=== PATIENT | male | born 1950 | race Caucasian/White ===

== ENCOUNTER → 2018-07-11 | Outpatient (CLI) | payer MEDICARE ==
[~2018-07-11] MED LIST: CLONAZEPAM0.5 MG PO; COLACE100 MG PO; CRESTOR10 MG PO; CRESTOR5 MG PO; FUROSEMIDE INJ 10 MG/ML 4 ML VIAL ONE; JUICE PLUS PO; LEVAQUIN500 MG PO; RED YEAST RICE PO; RED YEAST RICE600 MG PO; TRAMADOL-ACETAMI1 EA PO; TYLENOL WITH C1 EACH PO
--- NOTE | 2018-07-11 16:28 | Diagnostic Imaging Report ---
Renal Scan with Lasix Washout Clinical information: Hydronephrosis with ureteral stricture. 68 M with persistent left flank pain. No recent stents; no recent UTIs. Comparison: Most recent prior renal scan with Lasix 12/28/2016 Technique: Following intravenous administration of 11 mCi of Tc-99m MAG3, dynamic images of the kidneys in the posterior projection were obtained through 40 minutes. Lasix 40 mg was administered intravenously at 10 minutes post injection of the tracer. Report: Left kidney: Perfusion of the left kidney is prompt. The kidney has a distorted slightly elongated reniform shape with thinning of the renal cortex, most marked in the lower pole. Extraction of tracer from the blood pool by the remaining renal parenchyma is normal. Clearance of tracer from the renal parenchyma is prompt. Dilated calices are seen throughout the kidney although the renal pelvis is only slightly prominent. Increased pooling of tracer within the dilated calices is seen. No net drainage of tracer from the pelvicalyceal system is seen prior to administration of Lasix. Washout of tracer from the pelvicalyceal system following administration of Lasix is very slow with a T-1/2 of 30-40 minutes (normal less than 15 minutes). No significant stasis of tracer is seen within the left ureter. Right kidney: Perfusion to the right kidney is prompt. The right kidney has a normal reniform shape. Extraction of tracer by the renal parenchyma is normal. Clearance of tracer from the renal parenchyma is prompt. The pelvicalyceal system is not dilated. Physiologic pooling of tracer within the pelvicalyceal system is seen. Drainage of tracer from the pelvicalyceal system is prompt and adequate prior to administration of Lasix. No significant stasis of tracer is seen within the right ureter. Differential renal function: The left kidney contributes 40% of total renal function and the right kidney contributes 60% (normal 43-57%). Impression: 1. 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 Hydronephrosis is present. The washout pattern for the left kidney is prolonged but also stable compared to the prior study of 12/28/2016. 2. The function of the right kidney is generally normal. No hydronephrosis is present. No physiologically significant obstruction of the renal collecting system is present. The kidney and its drainage pattern are unchanged compared to the prior study. Signed by: Dr. Yanet Pérez M.D. on 07/11/2018 4:25 PM
== END ==
LOC: NM 08:27
PROVIDERS: ATTEND Urology
DX: N13.1 Hydronephrosis with ureteral stricture, not elsewhere classified (principal)
CPT/HCPCS: 78708; A9562; J1940

== ENCOUNTER 2018-09-06 21:51 | Inpatient (IN) | payer MEDICARE ==
[~2018-09-06] VITALS: Ht 170.2 cm; Wt 82.6 kg
[~2018-09-06 21:51] MED LIST changes: -FUROSEMIDE INJ 10 MG/ML 4 ML VIAL ONE
--- OUTSIDE RECORDS SUMMARY | 2018-09-06 21:56 | XMS REPORT | Continuity of Care Document ---
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 Name Role Phone [employer] Unavailable Unavailable Problems Problem Status Onset Date Classification Date Reported Comments Source N13.1 Active 05/30/2017 [facility] Diverticulitis of large intestine without perforation or abscess without bleeding 05/22/2017 08/22/2017 [facility] LOWER ABD PAIN Active 2017 [facility] 587 Active 09/10/2014 [facility] 333.1 - TREMOR NEC V70.0 - ROUTINE MEDIC Active 04/03/2014 [facility] Outpatient Imaging [facility] ENLARGED KIDNEY Active 04/03/2014 [facility] Pure hypercholesterolemia, unspecified 08/22/2017 [facility] Anxiety disorder, unspecified 08/22/2017 [facility] Essential hypertension 08/22/2017 [facility] Tremor, unspecified 08/22/2017 [facility] Personal history of nicotine dependence 08/22/2017 [facility] KIDNEY ANOMALY NEC Active [facility] RENAL SCLEROSIS NOS Active [facility] DVTRCLI OF INTEST, PART UNSP, W/O PERF O Active [facility] HYDRONEPHROSIS W URETERAL STRICTURE, NEC Active [facility] Medications Medication Details Route Status Patient Instructions Ordering Provider Order Date Source Metronidazole 500 MG Oral Tablet [Flagyl] 500 mg=1 tab, PO, Q8H, X 7 day, # 21 tab, 0 Refill(s), Pharmacy: [facility] [id number] No Longer Active 05/17/2017 [facility] Ciprofloxacin 500 MG Oral Tablet [Cipro] 500 mg=1 tab, PO, Q12H, X 7 day, # 14 tab, 0 Refill(s), Pharmacy: [facility] [id number] No Longer Active 05/17/2017 [facility] Metronidazole 500 MG Oral Tablet [Flagyl] 500 mg=1 tab, PO, Q8H, X 7 day, # 21 tab, 0 Refill(s), other Inactive 05/16/2017 [facility] Acetaminophen 300 MG / Codeine Phosphate 30 MG Oral Tablet [Tylenol with Codeine #3] 1 tab, PO, Q6H, PRN Pain, X 7 day, # 28 tab, 0 Refill(s) No Longer Active 05/16/2017 [facility] Ciprofloxacin 500 MG Oral Tablet [Cipro] 500 mg=1 tab, PO, Q12H, X 7 day, # 14 tab, 0 Refill(s), other Inactive 05/16/2017 [facility] Sodium Chloride 0.9% IV 1,000 mL 1,000 mL, Rate: 50 ml/hr, Infuse over: 20 hr, Route: IV, Dosing Weight 76.392 kg, Total Volume: 1,000, Start date: 05/15/17 11:54:00 CDT, Stop date: 06/14/17 11:53:00 CDT, 1.9, m2 No Longer Active 05/15/2017 [facility] 200 ML Ciprofloxacin 2 MG/ML Injection 400 mg, 200 mL, Route: IVPB, Drug form: INJ, [id number], Dosing Weight 77.545, kg, Start date: 05/15/17 1:00:00 CDT, Duration: 14 day, Stop date: 05/28/17 13:00:00 CDT, ABX Indication: Intra-abdominal InfectionNotes: Do not refrigerate Inactive 05/15/2017 [facility] Flagyl 500 mg, 100 mL, Route: IVPB, Drug form: INJ, Q8H, Dosing Weight 77.545, kg, Start date: 05/14/17 22:00:00 CDT, Duration: 30 day, Stop date: 06/13/17 14:00:00 CDT, ABX Indication: Intra-abdominal Infe ctionNotes: (Same as: Flagyl) Avoid alcohol. No Longer Active 05/15/2017 [facility] Zosyn 3.375 gm, Route: IVPB, Drug form: PDR/INJ, [id number], Dosing Weight 76.392, kg, CrCl >=20 ml/min infuse over 4 hours, Start date: 05/14/17 22:00:00 CDT, Duration: 14 day, Stop date: 05/28/17 14:00:00 CDT, diverticulitis, ABX Indication: Other (specify i... Inactive 05/15/2017 [facility] Crestor 5 mg, 0.5 tab, Route: PO, Drug form: TAB, Bedtime, Dosing Weight 76.392, kg, Start date: 05/14/17 21:00:00 CDT, Duration: 30 day, Stop date: 06/12/17 21:00:00 CDTNotes: (Same As: Crestor) No Longer Active 05/15/2017 [facility] Clonazepam 0.5 mg, 1 tab, Route: PO, Drug form: TAB, BID, Dosing Weight 76.392, kg, Start date: 05/14/17 21:00:00 CDT, Duration: 30 day, Stop date: 06/13/17 9:00:00 CDTNotes: (Same As: KlonoPIN) No Longer Active 05/15/2017 [facility] Atenolol 12.5 mg, 0.5 tab, Route: PO, Drug form: TAB, Daily, Dosing Weight 76.392, kg, Start date: 05/14/17 21:00:00 CDT, Duration: 30 day, Stop date: 06/13/17 9:00:00 CDTNotes: (Same As:Tenormin) No Longer Active 05/15/2017 [facility] Streptococcus pneumoniae serotype 1 capsular antigen diphtheria [id number] protein conjugate vaccine / Streptococcus pneumoniae serotype 14 capsular antigen diphtheria [id number] protein conjugate vaccine / Streptococcus pneumoniae serotype 18C capsular antigen d 0.5 mL, Route: IM, Drug Form: INJ, ONCALL, Start date: 05/14/17 19:00:00 CDT, Duration: 30 day, Stop date: 06/13/17 18:59:00 CDTNotes: Shake well prior to use (Same as: Prevnar 13) No Longer Active 05/15/2017 [facility] Atenolol 12.5 mg, PO, Daily, 0 Refill(s) Active 2017 [facility] Rosuvastatin calcium 5 MG Oral Tablet [Crestor] 5 mg=1 tab, PO, Bedtime, # 30 tab, 0 Refill(s) Active 2017 [facility] clonazePAM 0.5 mg oral tablet 0.5 mg=1 tab, PO, BID, # 30 tab, 0 Refill(s) Active 2017 [facility] Probiotic Formula oral capsule 1 cap, PO, Daily, 0 Refill(s) Active 2017 [facility] Albuterol 0.833 MG/ML / Ipratropium [place] 0.167 MG/ML Inhalant Solution [DuoNeb] 3 ml, Route: NEB, Drug Form: SOLN, Dosing Weight 77.545, kg, PRN, PRN Respiratory Protocol, Start date: 05/14/17 15:30:00 CDT, Duration: 30 day, Stop date: 06/13/17 15:29:00 CDTNotes: (Same as: Duoneb) No Longer Active 2017 [facility] Hydralazine 10 mg, 0.5 mL, Route: IVP, Drug form: INJ, Q6H, Dosing Weight 77.545, kg, PRN Hypertension, SBP>160, Start date: 05/14/17 15:30:00 CDT, Duration: 30 day, Stop date: 06/13/17 15:29:00 CDTNotes: (Same as: Apresoline) Push over 5 minutes No Longer Active 2017 [facility] Trazodone Hydrochloride 50 MG Oral Tablet 50 mg, 1 tab, Route: PO, Drug form: TAB, Bedtime, Dosing Weight 77.545, kg, PRN Insomnia, Start date: 05/14/17 15:30:00 CDT, Duration: 30 day, Stop date: 06/13/17 15:29:00 CDTNotes: (Same As: Desyrel) No Longer Active 2017 [facility] Acetaminophen 650 mg, 2 tab, Route: PO, Drug form: TAB, Q4H, Dosing Weight 77.545, kg, PRN For Temp > 100.4 F, Start date: 05/14/17 15:30:00 CDT, Duration: 30 day, Stop date: 06/13/17 15:29:00 CDTNotes: Do not exceed 4 gm/day. (Same as: Tylenol) No Longer Active 2017 [facility] Diphenhydramine 25 mg, 1 tab, Route: PO, Drug form: TAB, Q6H, Dosing Weight 77.545, kg, PRN Itching, Start date: 05/14/17 15:30:00 CDT, Duration: 30 day, Stop date: 06/13/17 15:29:00 CDT No Longer Active 2017 [facility] Tessalon Perles 100 mg, 1 cap, Route: PO, Drug form: CAP, Q8H, Dosing Weight 77.545, kg, PRN Cough, Start date: 05/14/17 15:30:00 CDT, Duration: 30 day, Stop date: 06/13/17 15:29:00 CDTNotes: (Same As: Tessalon Ama es) "Do Not Crush" No Longer Active 2017 [facility] Ondansetron 4 mg, 2 mL, Route: IVP, Drug form: INJ, Q8H, Dosing Weight 77.545, kg, PRN Nausea & Vomiting, Start date: 05/14/17 15:30:00 CDT, Duration: 30 day, Stop date: 06/13/17 15:29:00 CDTNotes: (Same as: Michael) MEDICATION WASTE Product Size: 4 mg Product Wasted: ___ mg No Longer Active 2017 [facility] Simethicone 80 mg, 1 tab, Route: PO, Drug form: [place], Q6H, Dosing Weight 77.545, kg, PRN Gas, Start date: 05/14/17 15:30:00 CDT, Duration: 2 doses or times, Stop date: Limited # of timesNotes: (Same as: Cata on) No Longer Active 2017 [facility] Aluminum Hydroxide 40 MG/ML / Magnesium Hydroxide 40 MG/ML / Simethicone 4 MG/ML Oral Suspension 30 mL, Route: PO, Drug Form: SUSP, Dosing Weight 77.545, kg, Q4H, PRN Indigestion, Start date: 05/14/17 15:30:00 CDT, Duration: 30 day, Stop date: 06/13/17 15:29:00 CDTNotes: (aluminum hydroxide-magnesium hyd- simethicone [id number]/5ml RICK) (Same as: Maalox Plus Extra Strength) No Longer Active 2017 [facility] Milk of Magnesia 30 mL, Route: PO, Drug Form: SUSP, Dosing Weight 77.545, kg, Q3H, PRN Constipation, Start date: 05/14/17 15:30:00 CDT, Duration: 2 doses or times, Stop date: Limited # of timesNotes: (Same as: Milk o f Magnesia, MOM) No Longer Active 2017 [facility] Bisacodyl 10 mg, 1 supp, Route: AK, Drug form: SUPP, Daily, Dosing Weight 77.545, kg, PRN Constipation, Start date: 05/14/17 15:30:00 CDT, Duration: 30 day, Stop date: 06/13/17 15:29:00 CDTNotes: (Same As: Dulcolax, Bisco-Lax) No Longer Active 2017 [facility] Saline Flush 0.9% 10 ml, Route: IVP, Drug Form: INJ, Dosing Weight 77.545, kg, PRN, PRN Line Flush, Start date: 05/14/17 15:30:00 CDT, Duration: 30 day, Stop date: 06/13/17 15:29:00 CDTNotes: (Same as: BD Posiflush) No Longer Active 2017 [facility] Sodium Chloride 0.9% IV 1,000 mL 1,000 mL, Rate: 100 ml/hr, Infuse over: 10 hr, Route: IV, Dosing Weight 77.545 kg, Total Volume: 1,000, Start date: 05/14/17 15:30:00 CDT, Duration: 30 day, Stop date: 06/13/17 15:29:00 CDT, 1.92, m2 No Longer Active 2017 [facility] Morphine 6 mg, 3 mL, Route: PO, Drug form: SOLN, Q4H, Dosing Weight 77.545, kg, PRN Pain Score 7-10, Start date: 05/14/17 15:27:00 CDT, Duration: 30 day, Stop date: 06/13/17 15:26:00 CDTNotes: (Same as:MORPhine Sulfate) No Longer Active 2017 [facility] Acetaminophen 325 MG / Hydrocodone Bitartrate 5 MG Oral Tablet [[place] 5/325] 1 tab, Route: PO, Drug Form: TAB, Dosing Weight 77.545, kg, Q6H, PRN Pain Score 1-3, Start date: 05/14/17 15:27:00 CDT, Duration: 30 day, Stop date: 06/13/17 15:26:00 CDTNotes: (Same as: [place] 325/5) Do not exceed 4gm/day of acetaminophen. No Longer Active 2017 [facility] Fentanyl 75 microgram, 1.5 mL, Route: IVP, Drug form: INJ, ONCE, Dosing Weight 77.545, kg, Priority: STAT, Start date: 05/14/17 13:43:00 CDT, Stop date: 05/14/17 13:43:00 CDTNotes: (Same as: Sublimaze) Preservative free. Inactive 2017 [facility] Metronidazole 500 mg, 100 mL, Route: IVPB, Drug form: INJ, ONCE, Dosing Weight 77.545, kg, Priority: STAT, Start date: 05/14/17 13:24:00 CDT, Stop date: 05/14/17 13:24:00 CDT, ABX Indication: Other (specify in Com ments)Notes: (Same as: Flagyl) Avoid alcohol. Inactive 2017 [facility] Cipro 400 mg, 200 mL, Route: IVPB, Drug form: INJ, ONCE, Dosing Weight 77.545, kg, Priority: STAT, Start date: 05/14/17 13:24:00 CDT, Stop date: 05/14/17 13:24:00 CDT, ABX Indication: Other (specify in Com ments)Notes: Do not refrigerate Inactive 2017 [facility] Omnipaque 300 injectable solution 100 mL, Route: IVP, Drug Form: SOLN, Dosing Weight 77.545, kg, ONCE, GFR > 45 mL/min, STAT, Start date: 05/14/17 11:49:00 CDT, Stop date: 05/14/17 11:49:00 CDTNotes: (Same as:Omnipaque 300). WASTE: F/P - Black; E - [employer]ash [employer] Inactive 2017 [facility] NS (Bolus) IV 1,000 mL, 1000 ml/hr, Infuse Over: 1 hr, Route: IV, 1,000, Drug form: INJ, ONCE, Priority: STAT, Dosing Weight 77.545 kg, Start date: 05/14/17 10:17:00 CDT, Stop date: 05/14/17 10:17:00 CDT Inactive 2017 [facility] Allergies, Adverse Reactions, Alerts Substance Category Reaction Severity Reaction type Status Date Reported Comments Source penicillin<sup>1</sup> Assertion Drug allergy Active Pt tolerated zosyn on admission 05/15/17 [facility] Immunizations No Data Provided for This Section Results Order Name Results Value Reference Range Date Interpretation Comments Source CHEM PANEL A/G Ratio 0.6 0.7 - 1.6 05/15/2017 [facility] CHEM PANEL Globulin 4.2 2.7 - 4.2 05/15/2017 [facility] CHEM PANEL AGAP 12.0 10.0 - 20.0 05/15/2017 [facility] CHEM PANEL B/C Ratio 9 6 - 25 05/15/2017 [facility] CHEM PANEL Total Protein 6.7 6.4 - 8.4 05/15/2017 [facility] CHEM PANEL Calcium Lvl 8.8 8.5 - 10.5 05/15/2017 [facility] CHEM PANEL Alk Phos 123 39 - 136 05/15/2017 [facility] CHEM PANEL Bili Total 0.8 0.2 - 1.3 05/15/2017 [facility] CHEM PANEL eGFR 76 05/15/2017 Result Comment: The eGFR is calculated using the CKD-EPI formula. In most young, healthy individuals the eGFR will be >90 mL/min/1.73m2. The eGFR declines with age. An eGFR of 60-89 may be normal in some populations, particularly the elderly, for whom the CKD-EPI formula has not been extensively validated. Use of the eGFR is not recommended in the following populations:

Individuals with unstable creatinine concentrations, including patients and those with serious co-morbid conditions.

Patients with extremes in muscle mass or diet.

The data above are obtained from the National Kidney Disease Education Program (NKDEP) which additionally recommends that when the eGFR is used in patients with extremes of body mass index for purposes of drug dosing, the eGFR should be multiplied by the estimated BMI. [facility] CHEM PANEL CO2 24 24 - 32 05/15/2017 [facility] CHEM PANEL Chloride Lvl 107 95 - 109 05/15/2017 [facility] CHEM PANEL ALT 25 0 - 65 05/15/2017 [facility] CHEM PANEL AST 12 0 - 37 05/15/2017 [facility] CHEM PANEL Albumin Lvl 2.5 3.5 - 5.0 05/15/2017 [facility] CHEM PANEL Potassium Lvl 4.0 3.5 - 5.1 05/15/2017 [facility] CHEM PANEL Sodium Lvl 139 135 - 145 05/15/2017 [facility] CHEM PANEL Creatinine Lvl 1.00 0.50 - 1.40 05/15/2017 [facility] CHEM PANEL BUN 9 7 - 22 05/15/2017 [facility] CHEM PANEL Glucose Lvl 98 70 - 99 05/15/2017 [facility] HEMATOLOGY Basophils # 0.1 0.0 - 0.2 05/15/2017 [facility] HEMATOLOGY Monocytes 9.6 2.0 - 12.0 05/15/2017 [facility] HEMATOLOGY Lymphocytes 15.7 20.0 - 40.0 05/15/2017 [facility] HEMATOLOGY Segs 72.8 45.0 - 75.0 05/15/2017 [facility] HEMATOLOGY Basophils 0.5 0.0 - 1.0 05/15/2017 [facility] HEMATOLOGY Eosinophils 1.4 0.0 - 4.0 05/15/2017 [facility] HEMATOLOGY Segs-Bands # 10.5 1.5 - 8.1 05/15/2017 [facility] HEMATOLOGY Lymphocytes # 2.3 1.0 - 5.5 05/15/2017 [facility] HEMATOLOGY Eosinophils # 0.2 0.0 - 0.5 05/15/2017 [facility] HEMATOLOGY Monocytes # 1.4 0.0 - 0.8 05/15/2017 [facility] HEMATOLOGY RDW 13.2 11.5 - 14.5 05/15/2017 [facility] HEMATOLOGY Platelet 378 133 - 450 05/15/2017 [facility] MPV 7.3 7.4 - 10.4 05/15/2017 [facility] HEMATOLOGY MCV 87.3 80.0 - 94.0 05/15/2017 [facility] MCH 29.4 27.0 - 31.0 05/15/2017 [facility] MCHC 33.7 32.0 - 36.0 05/15/2017 [facility] HEMATOLOGY RBC 4.65 4.70 - 6.10 05/15/2017 [facility] HEMATOLOGY WBC 14.4 3.7 - 10.4 05/15/2017 [facility] HEMATOLOGY Hct 40.5 42.0 - 54.0 05/15/2017 [facility] HEMATOLOGY Hgb 13.6 14.0 - 18.0 05/15/2017 [facility] CHEM PANEL eGFR 75 2017 Result Comment: The eGFR is calculated using the CKD-EPI formula. In most young, healthy individuals the eGFR will be >90 mL/min/1.73m2. The eGFR declines with age. An eGFR of 60-89 may be normal in some populations, particularly the elderly, for whom the CKD-EPI formula has not been extensively validated. Use of the eGFR is not recommended in the following populations:

Individuals with unstable creatinine concentrations, including patients and those with serious co-morbid conditions.

Patients with extremes in muscle mass or diet.

The data above are obtained from the National Kidney Disease Education Program (NKDEP) which additionally recommends that when the eGFR is used in patients with extremes of body mass index for purposes of drug dosing, the eGFR should be multiplied by the estimated BMI. [facility] CHEM PANEL Bili Total 0.7 0.2 - 1.3 2017 [facility] CHEM PANEL ALT 37 0 - 65 2017 [facility] CHEM PANEL Alk Phos 158 39 - 136 2017 [facility] CHEM PANEL AST 19 0 - 37 2017 [facility] CHEM PANEL Albumin Lvl 3.1 3.5 - 5.0 2017 [facility] CHEM PANEL Chloride Lvl 101 95 - 109 2017 [facility] CHEM PANEL Potassium Lvl 4.4 3.5 - 5.1 2017 [facility] CHEM PANEL Total Protein 8.0 6.4 - 8.4 2017 [facility] CHEM PANEL Calcium Lvl 9.2 8.5 - 10.5 2017 [facility] CHEM PANEL CO2 27 24 - 32 2017 [facility] CHEM PANEL BUN 13 7 - 22 2017 [facility] CHEM PANEL Creatinine Lvl 1.02 0.50 - 1.40 2017 [facility] CHEM PANEL Glucose Lvl 101 70 - 99 2017 [facility] CHEM PANEL Sodium Lvl 133 135 - 145 2017 [facility] CHEM PANEL Globulin 4.9 2.7 - 4.2 2017 [facility] CHEM PANEL A/G Ratio 0.6 0.7 - 1.6 2017 [facility] CHEM PANEL AGAP 9.4 10.0 - 20.0 2017 [facility] CHEM PANEL B/C Ratio 13 6 - 25 2017 [facility] CHEM PANEL Lipase Lvl 117 73 - 393 2017 [facility] HEMATOLOGY WBC 23.2 3.7 - 10.4 2017 [facility] HEMATOLOGY RBC 5.15 4.70 - 6.10 2017 [facility] HEMATOLOGY Hct 45.2 42.0 - 54.0 2017 [facility] HEMATOLOGY Hgb 15.2 14.0 - 18.0 2017 [facility] HEMATOLOGY RDW 13.0 11.5 - 14.5 2017 [facility] MCH 29.5 27.0 - 31.0 2017 [facility] MCHC 33.7 32.0 - 36.0 2017 [facility] MPV 7.5 7.4 - 10.4 2017 [facility] Platelet 426 133 - 450 2017 [facility] MCV 87.8 80.0 - 94.0 2017 [facility] HEMATOLOGY Segs 84.3 45.0 - 75.0 2017 [facility] HEMATOLOGY Lymphocytes 6.9 20.0 - 40.0 2017 [facility] HEMATOLOGY Eosinophils 0.1 0.0 - 4.0 2017 [facility] HEMATOLOGY Segs-Bands # 19.5 1.5 - 8.1 2017 [facility] Lymphocytes # 1.6 1.0 - 5.5 2017 [facility] HEMATOLOGY Basophils # 0.1 0.0 - 0.2 2017 [facility] HEMATOLOGY Basophils 0.3 0.0 - 1.0 2017 [facility] HEMATOLOGY Monocytes # 1.9 0.0 - 0.8 2017 [facility] Monocytes 8.4 2.0 - 12.0 2017 [facility] URINE AND STOOL UA Sq Epi Occasional /LPF Few /LPF 2017 [facility] URINE AND STOOL UA WBC 2 0 - 5 2017 [facility] URINE AND STOOL UA Bili Negative *NA* (05/14/17 10:58 AM) Negative 2017 [facility] URINE AND STOOL UA Blood Negative (05/14/17 10:58 AM) Negative 2017 [facility] URINE AND STOOL UA Urobilinogen 2.0 0.1 - 1.0 2017 [facility] URINE AND STOOL UA Nitrite Negative (05/14/17 10:58 AM) Negative 2017 [facility] URINE AND STOOL UA Leuk Est Negative (05/14/17 10:58 AM) Negative 2017 [facility] URINE AND STOOL UA Spec Grav 1.028 <=1.030 2017 [facility] URINE AND STOOL UA Protein Negative mg/dL Negative mg/dL 2017 [facility] URINE AND STOOL UA Glucose Negative mg/dL Negative mg/dL 2017 [facility] URINE AND STOOL UA Ketones Negative mg/dL Negative mg/dL 2017 [facility] URINE AND STOOL UA pH 5.0 5.0 - 8.0 2017 [facility] URINE AND STOOL UA RBC 3 0 - 2 2017 [facility] URINE AND STOOL UA Mucus Few /LPF None Seen /LPF 2017 [facility] URINE AND STOOL UA Turbidity Clear (05/14/17 10:58 AM) Clear 2017 [facility] URINE AND STOOL UA Color Yellow *NA* (05/14/17 10:58 AM) Yellow 2017 [facility] Pathology Reports No Data Provided for This Section Diagnostic Reports Report Value Date Source Renal scan w function study [place] Clinical Indication: Congenital defect of left kidney. Moderate left hydronephrosis seen on CT. Comparison: Lasix renal scan dated September 14, 2014. CT abdomen and pelvis dated 2017. TECHNIQUE: Renal scan is performed using 10 mCi of Tc 99m mag 3, which was administered intravenously. IV Site: Left Antecubital The Lasix renogram was performed using 40 mg of intravenous Lasix at 15 minutes. Renal angiographic imaging was performed in the frontal plane immediately after radiotracer administration at 5 seconds/frame for 60 seconds. Pre and post lasix static imaging was performed in the frontal plane at 1 minute intervals for 40 minutes. FINDINGS: The radionuclide angiographic images show mildly delayed left nephrogram. There is delayed excretion of radiotracer into the left renal collecting system. Photopenic area is seen in the left renal pelvis, consistent with hydronephrosis. Aggressive radiotracer cannulation is seen in the left renal collecting system, consistent with hydronephrosis. The left ureter is visualized on the exam. The bladder is seen and appears unremarkable. The split renal blood flow/ function of the kidneys at 2 to 3 minutes is Left 35.1 % (previously 33%). Right 64.9 % (previously 67%). After administration of Lasix the T-1/2 is: Left kidney 27.2 minutes (previously 201.38 minutes) Right kidney 14.7 minutes (previously 6.5 minutes). This is likely related to washout before Lasix administration. The left renal washout is in the abnormal/suspected obstruction range. ( normal < 10 minutes, indeterminate 10 to 20 minutes, abnormal > 20 minutes). IMPRESSION: 1. Unchanged decreased left renal function of 35.1% (previously 33% likely related to measurement technique). Delayed left renal radiotracer washout after Lasix administration in the obstructive range but improved in correlation with the prior exam (T1/2 of 27.2 minutes versus 201.38 minutes). SL: [id number] 06/11/2017 [facility] ED Abdomen/Pelvis IV contrast only CT Clinical Indication: - Lower abdominal pain; Comparison: 04/07/2014 TECHNIQUE: Helical imaging was performed from the diaphragm through the symphysis with multiplanar reformations obtained. IV CONTRAST: 100 cc Omnipaque 300 ORAL CONTRAST: Not given CT Radiation Dose: UIP=376.95 mGy-cm FINDINGS: LOWER CHEST: The lung bases are clear. SOLID ORGANS: The liver, spleen, pancreas, and adrenal glands are unremarkable. The gallbladder is present. Persistent moderate left hydronephrosis with surgical clips in the region of the left UPJ. The distal ureter remains nondilated. The right kidney is unremarkable. BOWEL: No evidence of bowel obstruction. There is an area of focal wall thickening in the mid sigmoid colon, with extensive pericolonic inflammatory change. Focal phlegmonous area superior to the sigmoid colon measuring 3.5 cm in diameter. Areas of fluid density are seen in sigmoid and in the mesentery and around the mesenteric vessels, without organizing collection. PERITONEUM: No free intraperitoneal air. RETROPERITONEUM: No adenopathy by CT size criteria. The aorta is normal. PELVIS: No pelvic mass. The urinary bladder is grossly normal. MUSCULOSKELETAL: No acute osseous abnormality. IMPRESSION: 1. Acute sigmoid diverticulitis with extensive phlegmonous changes in the sigmoid mesocolon. Insinuating fluid is seen, without focal organizing collection at this time. 2. 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 SL: [id number] 2017 [facility] Renal Lasix Scan [place] NAME: ARMINDA WEBSTER : 1950 SEX: M Ordering Physician: William Puentes Renal Lasix Scan [place] : Sep 14, 2014 10:11:00 AM. CLINICAL INDICATION: renal sclerosis / See Clinic Indication Comparison Examination: 04/07/2014. FINDINGS: Renal scan is performed using 10 mCi of Tc 99m mag 3. The Lasix renogram was performed using 40 mg of Lasix at 15 minutes. The radionuclide angiographic images redemonstrate diminished perfusion to the left kidney. Normal right nephrogram with normal excretion into the renal collecting system again seen. Delayed uptake and delayed excretion into a dilated left renal pelvis again noted. The split renal blood flow/ function of the kidneys at 2 to 3 minutes is left 33% and right 67%. The ureters are visualized on the exam. After administration of Lasix the T-1/2 for the right kidney is 6.5 minutes and left kidney is 201 minutes ( normal < 10 minutes, indeterminate 10 to 20 minutes, abnormal > 20 minutes, ). Opinion: Overall, no significant interval change with redemonstration of findings suggesting a urodynamically significant left renal obstruction and secondarily decreased function of 33% compared to 67% on the right (previous study 38% on left and 62% on the right). SL: 24 09/14/2014 [facility] Brain wo contrast MRI Name: ARMINDA WEBSTER : 1950 SEX: M Ordering Physician: Mirela Montes Brain wo contrast MRI : Apr 15, 2014 10:13:00 AM. CLINICAL INDICATION: tremors Comparison Examination: None TECHNIQUE: MRI of the brain is performed without gadolinium contrast with axial T2, FLAIR, diffusion weighted and gradient echo imaging, along with sagittal T1 FLAIR and coronal T1-weighted imaging. FINDINGS: Mild generalized age-appropriate diffuse cerebral volume loss is seen with associated ventricular prominence. Otherwise, the brain parenchyma is unremarkable with normal cook and white interfaces, sulci, and gyri. There is no mass effect or midline shift. There are no parenchymal, intraventricular, or extra-axial hemorrhages. The ventricles and cisterns are normal. There are no diffusion weighted abnormalities to suggest acute/subacute stroke. The gradient echo images are unremarkable without evidence of intracranial hemorrhage. There are prominent prevascular spaces in the mid brain and bilateral basal ganglia. The corpus callosum, skull base, craniocervical junction, and sellar region are unremarkable. The visualized orbits and paranasal sinuses are unremarkable. Incidentally noted is septal deviation to the left. There is susceptibility artifacts in the right premalar region likely related to prior trauma. Mild right maxillary sinus mucosal thickening is present. IMPRESSION: Mild generalized age-appropriate cerebral volume loss. Otherwise unremarkable noncontrast MRI of the brain. 04/15/2014 [facility] Outpatient Imaging [facility] Spine cervical wo contrast MRI Name: ARMINDA WEBSTER : 1950 SEX: M Ordering Physician: Mirela Montes Spine cervical wo contrast MRI : Apr 15, 2014 10:13:00 AM. CLINICAL INDICATION: tremors Comparison Examination: None TECHNIQUE: Multiplanar noncontrast T1, T2, and STIR weighted MR images of the cervical spine are obtained. Contrast: None FINDINGS: The visualized posterior fossa is normal. The craniovertebral junction region appears unremarkable. There is mild straightening of the usual cervical lordosis The marrow signal is within normal limits. The cervical spinal cord has a normal size, shape and signal intensity. No hydromyelia formation is identified. The paraspinal soft tissue structures appear normal. No evidence of ligamentous injury C2-3: No central canal or neural foraminal stenosis. C3-4: There is mild uncovertebral hypertrophy with mild left neural foraminal stenosis. C4-5: There is mild uncovertebral hypertrophy with mild right and mild to moderate left neural foraminal stenosis. No significant central canal stenosis. C5-6: There is bilateral uncovertebral hypertrophy with moderate to severe right and mild to moderate left neural foraminal stenosis. There is mild thickening of the posterior longitudinal ligament and effacement of the thecal sac. C6-7: There is a small diffuse disc bulge. Bilateral uncovertebral hypertrophy is present. There is severe right and moderate to severe left neural foraminal stenosis. There is effacement of the intrathecal sac and mild central canal stenosis. C7-T1: No significant central canal or neural foraminal stenosis. IMPRESSION: Multilevel spondylosis with associated neural foraminal stenosis SL: 24 04/15/2014 [facility] Outpatient Imaging [facility] Abdomen/Pelvis w/wo IV contrast CT Name: ARMINDA WEBSTER : 1950 SEX: M Ordering Physician: William Puentes CT Abdomen/Pelvis w/wo contrast : Apr 07, 2014 09:51:00 AM. CLINICAL INDICATION: enlarged kidney Comparison Examination: None Clinical History: Enlarged kidney TECHNIQUE: Sequential trans-axial images of the abdoment and pelvis were obtained with a multi-detector helical CT before and after administration of IV contrast. Coronal and sagittal reconstructions were obtained. Contrast: 100 cc Omnipaque IV. Enteric contrast Dose: The total exam DLP is 1464.5 mGy-cm. FINDINGS: CT ABDOMEN WITHOUT/WITH CONTRAST: The visualized lung bases are clear. The noncontrast enhanced images of the abdomen show no renal calculi or calcified abdominal masses. Postcontrast images of the liver, gallbladder, spleen, pancreas, adrenals, and right kidney are unremarkable. There is severe left hydronephrosis with a large extrarenal pelvis. There is abrupt transition to normal caliber ureter at the level of the ureteropelvic junction. No obstructing lesion is appreciated. The overlying cortex enhances normally but is significantly. Appearance suggests chronic process. The stomach is unremarkable. The contrast opacified loops of colon and small bowel in the abdomen and pelvis are unremarkable. There is colonic diverticulosis without evidence of diverticulitis. The appendix is normal. There is no abdominal lymphadenopathy, pneumoperitoneum or ascites. The abdominal aorta and inferior vena cava are normal with patent bilateral renal arteries, mesenteric arteries, and mesenteric veins including the portal vein. There are atherosclerotic calcifications in the aorta without aneurysm or dissection. FINDINGS: CT PELVIS WITHOUT/WITH CONTRAST: The noncontrast enhanced images of the pelvis are unremarkable. The contrast-enhanced images of the pelvis show no mass, adenopathy, or fluid collection. The bladder is normal. The inguinal regions are unremarkable. The visualized skeleton is unremarkable. IMPRESSION: Chronic left UPJ obstruction with severe hydronephrosis. Diverticulosis without evidence of diverticulitis. SL:54 04/07/2014 [facility] Renal scan w function study NM Name: ARMINDA WEBSTER : 1950 SEX: M Ordering Physician: William Puentes Renal scan with function study NM : Apr 07, 2014 08:38:00 AM. CLINICAL INDICATION: . Comparison Examination: CT dated 04/07/2014 was reviewed. Clinical History: Abnormal kidney FINDINGS: Renal scan is performed using 10 mCi of Tc 99m Mag 3. The Lasix renogram was performed using 40 mg of Lasix administered at 15 minutes. The radionuclide angiographic images show normal perfusion a localization to the right kidney. There is decreased perfusion localization to the left kidney. There is a normal right nephrogram with normal excretion into the renal collecting system. There is delayed excretion into the left renal collecting system with dilated system on nephrogram. The split renal blood flow/ function of the kidneys at 2 to 3 minutes is 38 % on the right and 62% on the left. The right ureter is visualized on the exam. The left ureter is not visualize. The collecting system is dilated the level of the ureteropelvic junction After administration of Lasix the T-1/2 for the right kidney is 7.5 minutes. There is persistent accumulation in the left renal collecting system prior to Lasix administration. There is minimal response to Lasix with subsequent accumulation of radiotracer in the left collecting system. Diuretic T1 half was not calculated on the left. (normal < 10 minutes, indeterminate 10 to 20 minutes, abnormal > 20 minutes). IMPRESSION: 1. Normal right renal scan. Left hydronephrosis with apparent ureteropelvic junction obstruction. 2. The right kidney contributes 62% to overall renal function while the left kidney contributes 38%. 3. Normal response to lasix in the right kidney. Minimal response to Lasix in the left kidney.. SL:54 04/07/2014 [facility] Consultation Notes No Data Provided for This Section Discharge Summaries No Data Provided for This Section History and Physicals No Data Provided for This Section Vital Signs Vital Sign Value Date Comments Source Systolic (mm Hg) 142 05/16/2017 [facility] Diastolic (mm Hg) 83 05/16/2017 [facility] Temperature Oral (F) 98.0 F 05/16/2017 [facility] Heart Rate 71 05/16/2017 [facility] Respitory Rate 18 05/16/2017 [facility] Systolic (mm Hg) 136 05/16/2017 [facility] Diastolic (mm Hg) 81 05/16/2017 [facility] Heart Rate 59 05/16/2017 [facility] Temperature Oral (F) 98.3 F 05/16/2017 [facility] Systolic (mm Hg) 132 05/16/2017 [facility] Diastolic (mm Hg) 81 05/16/2017 [facility] Temperature Oral (F) 97.6 F 05/16/2017 [facility] Respitory Rate 18 05/16/2017 [facility] Heart Rate 67 05/16/2017 [facility] Respitory Rate 18 05/16/2017 [facility] Weight 76.392 2017 [facility] BMI Calculated 27.18 2017 [facility] Height 167.64 cm 2017 [facility] Height 167.64 cm 2017 [facility] BMI Calculated 27.59 2017 [facility] Weight 77.545 2017 [facility] Encounters Location Location Details Encounter Type Encounter Number Reason For Visit Attending Provider ADM Date DC Date Status Source [facility] Outpatient [id number] William Hampel 04/07/2014 04/08/2014 [facility] Outpatient [id number] William Hampel 09/14/2014 09/15/2014 [facility] Inpatient [id number] Hernán Corona 2017 05/17/2017 [facility] Outpatient [id number] William Hampel 06/11/2017 06/12/2017 [facility] Procedures Procedure Code Date Perfomer Comments Source Kidney operation [id number] [facility] Assessment and Plan Assessment and Plan Date Source Extracted from:Title: Clinical Document Author: Alberto Bell MD Date: 05/16/17 Progress Note - Daily [facility] Completed: Apr, 13:41 by Alberto Bell MD RM: 436 - 1, NE [id number] ARMINDA WEBSTER 67y (: 1950) Attending: Hernán Corona DO Service: Internal Medicine Reason for Admission: LOWER ABD PAIN Working DRG: Esophagitis, gastroent and misc digest disorders w/o [facility] Code status: None Specified=FULL CODE Current diet: Isolation: No Isolation/Standard Precautions Allergies: penicillin SUBJECTIVE doing fine. no complaints of pain. no nausea OBJECTIVE abdomne soft. NTND avss aox3 breathing normally RRR no edema (no lab data in past 24 hours) Sosa still necessary (Yes/No): Line still necessary (Yes/No): Vitals Tmp(F) Pulse BP RR SpO2 FIO2 05/16 11:39 98.3 59 136/81 18 99 --- 05/16 08:06 97.6 67 132/81 18 98 --- 05/16 00:58 98 63 130/85 -- 98 --- 05/15 20:23 98.0 65 130/77 18 99 --- 05/15 19:34 ---- --- ----- 16 97 21% 24 Hr Tmax: 98.3F (36.83c) at 05/16 11:39 Vital Signs are the last 5 in the past 48 hours. Date Wt(kg) Wt(lb) Ht(cm) Ht(in) Method 05/14 (initial) 77.55 170.60 Measured 05/14 167.64 66.00 Stated I&O Record In Out Bal 05/16 24hr Tot 100 0 100 05/15 24hr Tot 1635 0 1635 Medications (20) Active Scheduled Meds (4): 05/14/17 atenolol 12.5 mg PO Daily 05/14/17 clonazePAM 0.5 mg PO BID 05/14/17 piperacillin-tazobactam + Sodium Chloride 0.9% IV 100 mL (Zosyn + Sodium Chloride 0.9% IV 100 mL) 3.375 gm IVPB ABXQ8H 25 ml/hr 05/14/17 rosuvastatin (Crestor) 5 mg PO Bedtime Unscheduled Meds (1): 05/14/17 pneumococcal 13-valent vaccine 0.5 mL IM ONCALL PRN Meds (14): 05/14/17 Al hydroxide/Mg hydroxide/simethicone (Al hydroxide/Mg hydroxide/simethicone 200 mg-200 mg-20 mg/5 mL oral suspension) 30 mL PO Q4H 05/14/17 acetaminophen-hydrocodone ([place] 5/325 oral tablet) 1 tab PO Q6H 05/14/17 acetaminophen 650 mg PO Q4H 05/14/17 albuterol-ipratropium (DuoNeb inhalation solution) 3 ml NEB PRN 05/14/17 benzonatate (Tessalon Perles) 100 mg PO Q8H 05/14/17 bisacodyl 10 mg AK Daily 05/14/17 diphenhydrAMINE 25 mg PO Q6H 05/14/17 hydrALAZINE 10 mg IVP Q6H 05/14/17 magnesium hydroxide (Milk of Magnesia) 30 mL PO Q3H 05/14/17 morphine Sulfate 6 mg PO Q4H 05/14/17 ondansetron 4 mg IVP Q8H 05/14/17 simethicone 80 mg PO Q6H 05/14/17 sodium chloride (Saline Flush 0.9%) 10 ml IVP PRN 05/14/17 trazodone (trazodone 50 mg oral tablet) 50 mg PO Bedtime One Time Meds: None Continuous Infusions (1): 05/15/17 Sodium Chloride 0.9% IV 1,000 mL 1,000 mL 50 ml/hr ASSESSMENT and EXAM diverticulitis PLAN and TREATMENT doing well ok to advance diet and dc home f/u 1-2 wks DIAGNOSES and PROBLEMS Ready for Discharge (Yes/No)? TEACHING ATTESTATION Extracted from:Title: Discharge Summary * Author: Hernán Corona DO Date: 05/16/17 Discharge Plan Discharge Summary Plan Discharge Status: stable. Discharge instructions given: to patient. Discharge disposition: discharge to home. Prescriptions: called to pharmacy, written and given to patient. Diagnosis Acute diverticulitis HTN Anxiety HLD -start iv cipro and flagyl. start clear liquids. iv fluids. prn pain medication. surgery consulted. -resume home bp meds -resume home anxiety meds -resume home statin . -clinically improved. wbc down -d/c home on po abx -cleared by surgery. f/u as outpatient . Extracted from:Title: General Admission H&P * Author: Hernán Corona DO Date: 05/14/17 Impression and Plan Diagnosis Acute diverticulitis HTN Anxiety HLD -start iv cipro and flagyl. start clear liquids. iv fluids. prn pain medication. surgery consulted. -resume home bp meds -resume home anxiety meds -resume home statin . 05/17/2017 [facility] Plan of Care No Data Provided for This Section Social History Social History Date Source Social History TypeResponse Smoking Status Former smoker; Exposure to Tobacco Smoke None; Cigarette Smoking Last 365 Days No; Reg Smoking Cessation Counseling No entered on: 05/14/17 2017 [facility] Family History No Data Provided for This Section Advance Directives No Data Provided for This Section Functional Status No Data Provided for This Section
--- OUTSIDE RECORDS SUMMARY | 2018-09-06 21:57 | XMS REPORT | Summary of Care ---
Author Author [facility] Organization [facility] Address Unknown Phone Unavailable Encounter MARY JO Quesada(FIN) [id number] Date(s): 05/14/17 - 05/16/17 [facility] [address] [address] [place] [address] Encounter Diagnosis Diverticulitis of large intestine without perforation or abscess without bleedin g (Final) - 05/21/17 Pure hypercholesterolemia, unspecified (Final) - Anxiety disorder, unspecified (Final) - Essential (primary) hypertension (Final) - Tremor, unspecified (Final) - Personal history of nicotine dependence (Final) - Discharge Disposition: Home or Self Care Attending Physician: Hernán Corona DO Admitting Physician: Hernán Corona DO Vital Signs 1 2 3 Most recent to oldest [Reference Range]: 167.64 cm (05/14/17 4:10 PM) 167.64 cm (05/14/17 10:08 AM) Height 98.0 DegF (05/16/17 6:49 PM) 98.3 DegF (05/16/17 11:39 AM) 97.6 DegF (05/16/17 8:06 AM) Temperature Oral [96.4-99.1 DegF] 142/83 mmHg *HI* (05/16/17 6:49 PM) 136/81 mmHg (05/16/17 11:39 AM) 132/81 mmHg (05/16/17 8:06 AM) Blood Pressure [90-140/60-90 mmHg] 18 BRMIN (05/16/17 11:39 AM) 18 BRMIN (05/16/17 8:06 AM) 18 BRMIN (05/15/17 8:23 PM) Respiratory Rate [14-20 BRMIN] 71 bpm (05/16/17 6:49 PM) 59 bpm *LOW* (05/16/17 11:39 AM) 67 bpm (05/16/17 8:06 AM) Peripheral Pulse Rate [60-100 bpm] 76.392 kg (05/14/17 4:10 PM) 77.545 kg (05/14/17 10:08 AM) Weight 27.18 m2 (05/14/17 4:10 PM) 27.59 m2 (05/14/17 10:08 AM) Body Mass Index Problem List No data available for this section Allergies, Adverse Reactions, Alerts Substance Reaction Severity Status penicillin1 Active 1Pt tolerated zosyn on admission 05/15/17 Medications acetaminophen 650 mg, 2 tab, Route: PO, Drug form: TAB, Q4H, Dosing Weight 77.545, kg, PRN For Temp > 100.4 F, Start date: 05/14/17 15:30:00 CDT, Duration: 30 day, Stop date: 06/13/17 15:29:00 CDT Notes: Do not exceed 4 gm/day. (Same as: Tylenol) Start Date: 05/14/17 Stop Date: 05/17/17 Status: Discontinued Al hydroxide/Mg hydroxide/simethicone 200 mg-200 mg-20 mg/5 mL oral suspension 30 mL, Route: PO, Drug Form: SUSP, Dosing Weight 77.545, kg, Q4H, PRN Indigestio n, Start date: 05/14/17 15:30:00 CDT, Duration: 30 day, Stop date: 06/13/17 15:2 9:00 CDT Notes: (aluminum hydroxide-magnesium hyd- simethicone 108-520-52as/5ml RICK) (Sa me as: Maalox Plus Extra Strength) Start Date: 05/14/17 Stop Date: 05/17/17 Status: Discontinued atenolol 12.5 mg, PO, Daily, 0 Refill(s) Start Date: 05/14/17 Status: Ordered atenolol 12.5 mg, 0.5 tab, Route: PO, Drug form: TAB, Daily, Dosing Weight 76.392, kg, St art date: 05/14/17 21:00:00 CDT, Duration: 30 day, Stop date: 06/13/17 9:00:00 C DT Notes: (Same As:Tenormin) Start Date: 05/14/17 Stop Date: 05/17/17 Status: Discontinued bisacodyl 10 mg, 1 supp, Route: PA, Drug form: SUPP, Daily, Dosing Weight 77.545, kg, PRN Constipation, Start date: 05/14/17 15:30:00 CDT, Duration: 30 day, Stop date: 15:29:00 CDT Notes: (Same As: Dulcolax, Bisco-Lax) Start Date: 05/14/17 Stop Date: 05/17/17 Status: Discontinued Cipro 400 mg, 200 mL, Route: IVPB, Drug form: INJ, ONCE, Dosing Weight 77.545, kg, Izzy ority: STAT, Start date: 05/14/17 13:24:00 CDT, Stop date: 05/14/17 13:24:00 CDT , ABX Indication: Other (specify in Comments) Notes: Do not refrigerate Start Date: 05/14/17 Stop Date: 05/14/17 Status: Completed Cipro 500 mg oral tablet 500 mg=1 tab, PO, Q12H, X 7 day, # 14 tab, 0 Refill(s), Pharmacy: [facility] [id number] Start Date: 05/16/17 Stop Date: 05/23/17 Status: Completed Cipro 500 mg oral tablet 500 mg=1 tab, PO, Q12H, X 7 day, # 14 tab, 0 Refill(s), other Start Date: 05/16/17 Stop Date: 05/16/17 Status: Discontinued ciprofloxacin 400 mg/200 mL intravenous solution 400 mg, 200 mL, Route: IVPB, Drug form: INJ, FADF21M, Dosing Weight 77.545, kg, Start date: 05/15/17 1:00:00 CDT, Duration: 14 day, Stop date: 05/28/17 13:00:00 CDT, ABX Indication: Intra-abdominal Infection Notes: Do not refrigerate Start Date: 05/15/17 Stop Date: 05/15/17 Status: Discontinued clonazePAM 0.5 mg, 1 tab, Route: PO, Drug form: TAB, BID, Dosing Weight 76.392, kg, Start d ate: 05/14/17 21:00:00 CDT, Duration: 30 day, Stop date: 06/13/17 9:00:00 CDT Notes: (Same As: KlonoPIN) Start Date: 05/14/17 Stop Date: 05/17/17 Status: Discontinued clonazePAM 0.5 mg oral tablet 0.5 mg=1 tab, PO, BID, # 30 tab, 0 Refill(s) Start Date: 05/14/17 Status: Ordered Crestor 5 mg, 0.5 tab, Route: PO, Drug form: TAB, Bedtime, Dosing Weight 76.392, kg, Sta rt date: 05/14/17 21:00:00 CDT, Duration: 30 day, Stop date: 06/12/17 21:00:00 C DT Notes: (Same As: Crestor) Start Date: 05/14/17 Stop Date: 05/17/17 Status: Discontinued Crestor 5 mg oral tablet 5 mg=1 tab, PO, Bedtime, # 30 tab, 0 Refill(s) Start Date: 05/14/17 Status: Ordered diphenhydrAMINE 25 mg, 1 tab, Route: PO, Drug form: TAB, Q6H, Dosing Weight 77.545, kg, PRN Itch ing, Start date: 05/14/17 15:30:00 CDT, Duration: 30 day, Stop date: 06/13/17 15 :29:00 CDT Start Date: 05/14/17 Stop Date: 05/17/17 Status: Discontinued DuoNeb inhalation solution 3 ml, Route: NEB, Drug Form: SOLN, Dosing Weight 77.545, kg, PRN, PRN Respirator y Protocol, Start date: 05/14/17 15:30:00 CDT, Duration: 30 day, Stop date: 05/27 10/13 15:29:00 CDT Notes: (Same as: Duoneb) Start Date: 05/14/17 Stop Date: 05/17/17 Status: Discontinued fentaNYL 75 microgram, 1.5 mL, Route: IVP, Drug form: INJ, ONCE, Dosing Weight 77.545, kg , Priority: STAT, Start date: 05/14/17 13:43:00 CDT, Stop date: 05/14/17 13:43:0 0 CDT Notes: (Same as: Sublimaze) Preservative free. Start Date: 05/14/17 Stop Date: 05/14/17 Status: Completed Flagyl 500 mg, 100 mL, Route: IVPB, Drug form: INJ, Q8H, Dosing Weight 77.545, kg, Star t date: 05/14/17 22:00:00 CDT, Duration: 30 day, Stop date: 06/13/17 14:00:00 CD T, ABX Indication: Intra-abdominal Infection Notes: (Same as: Flagyl) Avoid alcohol. Start Date: 05/14/17 Stop Date: 05/15/17 Status: Discontinued Flagyl 500 mg oral tablet 500 mg=1 tab, PO, Q8H, X 7 day, # 21 tab, 0 Refill(s), other Start Date: 05/16/17 Stop Date: 05/16/17 Status: Discontinued Flagyl 500 mg oral tablet 500 mg=1 tab, PO, Q8H, X 7 day, # 21 tab, 0 Refill(s), Pharmacy: [facility] [id number] Start Date: 05/16/17 Stop Date: 05/23/17 Status: Completed hydrALAZINE 10 mg, 0.5 mL, Route: IVP, Drug form: INJ, Q6H, Dosing Weight 77.545, kg, PRN Hy pertension, SBP>160, Start date: 05/14/17 15:30:00 CDT, Duration: 30 day, Stop date: 06/13/17 15:29:00 CDT Notes: (Same as: Apresoline)Push over 5 minutes Start Date: 05/14/17 Stop Date: 05/17/17 Status: Discontinued metroNIDAZOLE 500 mg, 100 mL, Route: IVPB, Drug form: INJ, ONCE, Dosing Weight 77.545, kg, Izzy ority: STAT, Start date: 05/14/17 13:24:00 CDT, Stop date: 05/14/17 13:24:00 CDT , ABX Indication: Other (specify in Comments) Notes: (Same as: Flagyl) Avoid alcohol. Start Date: 05/14/17 Stop Date: 05/14/17 Status: Completed Milk of Magnesia 30 mL, Route: PO, Drug Form: SUSP, Dosing Weight 77.545, kg, Q3H, PRN Constipati on, Start date: 05/14/17 15:30:00 CDT, Duration: 2 doses or times, Stop date: Martha bowen # of times Notes: (Same as: Milk of Magnstanford, MOM) Start Date: 05/14/17 Stop Date: 05/17/17 Status: Discontinued morphine Sulfate 6 mg, 3 mL, Route: PO, Drug form: SOLN, Q4H, Dosing Weight 77.545, kg, PRN Pain Score 7-10, Start date: 05/14/17 15:27:00 CDT, Duration: 30 day, Stop date: 05/27 10/13 15:26:00 CDT Notes: (Same as:MORPhine Sulfate) Start Date: 05/14/17 Stop Date: 05/17/17 Status: Discontinued Brandeis 5/325 oral tablet 1 tab, Route: PO, Drug Form: TAB, Dosing Weight 77.545, kg, Q6H, PRN Pain Score 1-3, Start date: 05/14/17 15:27:00 CDT, Duration: 30 day, Stop date: 06/13/17 15 :26:00 CDT Notes: (Same as: Brandeis 325/5) Do not exceed 4gm/day of acetaminophen. Start Date: 05/14/17 Stop Date: 05/17/17 Status: Discontinued NS (Bolus) IV 1,000 mL, 1000 ml/hr, Infuse Over: 1 hr, Route: IV, 1,000, Drug form: INJ, ONCE, Priority: STAT, Dosing Weight 77.545 kg, Start date: 05/14/17 10:17:00 CDT, Stop date: 05/14/17 10:17:00 CDT Start Date: 05/14/17 Stop Date: 05/14/17 Status: Completed Omnipaque 300 injectable solution 100 mL, Route: IVP, Drug Form: SOLN, Dosing Weight 77.545, kg, ONCE, GFR > 45 mL/min, STAT, Start date: 05/14/17 11:49:00 CDT, Stop date: 05/14/17 11:49:00 CDT Notes: (Same as:Omnipaque 300).WASTE: F/P - Black; E - Municipal Trash Bin Start Date: 05/14/17 Stop Date: 05/14/17 Status: Completed ondansetron 4 mg, 2 mL, Route: IVP, Drug form: INJ, Q8H, Dosing Weight 77.545, kg, PRN Nause a & Vomiting, Start date: 05/14/17 15:30:00 CDT, Duration: 30 day, Stop date: 06/13/17 15:29:00 CDT Notes: (Same as: Michael) MEDICATION WASTE Product Size: 4 mgProduct Was paco: ___ mg Start Date: 05/14/17 Stop Date: 05/17/17 Status: Discontinued pneumococcal 13-valent vaccine 0.5 mL, Route: IM, Drug Form: INJ, ONCALL, Start date: 05/14/17 19:00:00 CDT, Du ration: 30 day, Stop date: 06/13/17 18:59:00 CDT Notes: Shake well prior to use (Same as: Prevnar 13) Start Date: 05/14/17 Stop Date: 05/17/17 Status: Discontinued Probiotic Formula oral capsule 1 cap, PO, Daily, 0 Refill(s) Start Date: 05/14/17 Status: Ordered Saline Flush 0.9% 10 ml, Route: IVP, Drug Form: INJ, Dosing Weight 77.545, kg, PRN, PRN Line Flush , Start date: 05/14/17 15:30:00 CDT, Duration: 30 day, Stop date: 06/13/17 15:29 :00 CDT Notes: (Same as: BD Posiflush) Start Date: 05/14/17 Stop Date: 05/17/17 Status: Discontinued simethicone 80 mg, 1 tab, Route: PO, Drug form: CHEWTAB, Q6H, Dosing Weight 77.545, kg, PRN Gas, Start date: 05/14/17 15:30:00 CDT, Duration: 2 doses or times, Stop date: L imited # of times Notes: (Same as: Gorge) Start Date: 05/14/17 Stop Date: 05/17/17 Status: Discontinued Sodium Chloride 0.9% IV 1,000 mL 1,000 mL, Rate: 50 ml/hr, Infuse over: 20 hr, Route: IV, Dosing Weight 76.392 kg , Total Volume: 1,000, Start date: 05/15/17 11:54:00 CDT, Stop date: 06/14/17 11 :53:00 CDT, 1.9, m2 Start Date: 05/15/17 Stop Date: 05/17/17 Status: Discontinued Sodium Chloride 0.9% IV 1,000 mL 1,000 mL, Rate: 100 ml/hr, Infuse over: 10 hr, Route: IV, Dosing Weight 77.545 k g, Total Volume: 1,000, Start date: 05/14/17 15:30:00 CDT, Duration: 30 day, Sto p date: 06/13/17 15:29:00 CDT, 1.92, m2 Start Date: 05/14/17 Stop Date: 05/15/17 Status: Discontinued Tessalon Perles 100 mg, 1 cap, Route: PO, Drug form: CAP, Q8H, Dosing Weight 77.545, kg, PRN Cou gh, Start date: 05/14/17 15:30:00 CDT, Duration: 30 day, Stop date: 06/13/17 15: 29:00 CDT Notes: (Same As: Tessalon Perles)"Do Not Crush" Start Date: 05/14/17 Stop Date: 05/17/17 Status: Discontinued trazodone 50 mg oral tablet 50 mg, 1 tab, Route: PO, Drug form: TAB, Bedtime, Dosing Weight 77.545, kg, PRN Insomnia, Start date: 05/14/17 15:30:00 CDT, Duration: 30 day, Stop date: 15:29:00 CDT Notes: (Same As: Beverley) Start Date: 05/14/17 Stop Date: 05/17/17 Status: Discontinued Tylenol with Codeine #3 oral tablet 1 tab, PO, Q6H, PRN Pain, X 7 day, # 28 tab, 0 Refill(s) Start Date: 05/16/17 Stop Date: 05/23/17 Status: Completed Zosyn 3.375 gm, Route: IVPB, Drug form: PDR/INJ, ABXQ8H, Dosing Weight 76.392, kg, CrC l >=20 ml/min infuse over 4 hours, Start date: 05/14/17 22:00:00 CDT, Duration: 14 day, Stop date: 05/28/17 14:00:00 CDT, diverticulitis, ABX Indication: Other (specify i... Start Date: 05/14/17 Stop Date: 05/14/17 Status: Deleted Zosyn + Sodium Chloride 0.9% IV 100 mL 3.375 gm, Route: IVPB, ABXQ8H, Dosing Weight 76.392, kg, CrCl >=20 ml/min infuse over 4 hours, Start date: 05/14/17 22:00:00 CDT, Duration: 14 day, Stop date: 05/28/17 17:00:00 CDT, diverticulitis, ABX Indication: Other (specify in Comments) Notes: (Same as: Zosyn)Dosing based on Piperacillin component MEDICATION WA WALT Product Size: 3375 mgProduct Wasted: ___ mg Start Date: 05/14/17 Stop Date: 05/17/17 Status: Discontinued Results ELECTROLYTES Most recent to 1 2 oldest [Reference Range]: Sodium Lvl [135-145 139 mEq/L 133 mEq/L mEq/L] (05/15/17 5:16 AM) *LOW* (05/14/17 10:58 AM) Potassium Lvl 4.0 mEq/L 4.4 mEq/L [3.5-5.1 mEq/L] (05/15/17 5:16 AM) (05/14/17 10:58 AM) Chloride Lvl [95-109 107 mEq/L 101 mEq/L mEq/L] (05/15/17 5:16 AM) (05/14/17 10:58 AM) CO2 [24-32 mEq/L] 24 mEq/L 27 mEq/L (05/15/17 5:16 AM) (05/14/17 10:58 AM) AGAP [10.0-20.0 12.0 mEq/L 9.4 mEq/L mEq/L] (05/15/17 5:16 AM) *LOW* (05/14/17 10:58 AM) CHEM PANEL Most recent to 1 2 oldest [Reference Range]: Creatinine Lvl 1.00 mg/dL 1.02 mg/dL [0.50-1.40 mg/dL] (05/15/17 5:16 AM) (05/14/17 10:58 AM) eGFR 76 mL/min/1.73m2 1 75 mL/min/1.73m2 2 *NA* *NA* (05/15/17 5:16 AM) (05/14/17 10:58 AM) BUN [7-22 mg/dL] 9 mg/dL 13 mg/dL (05/15/17 5:16 AM) (05/14/17 10:58 AM) B/C Ratio [6-25] 9 13 (05/15/17 5:16 AM) (05/14/17 10:58 AM) Glucose Lvl [70-99 98 mg/dL 101 mg/dL mg/dL] (05/15/17 5:16 AM) *HI* (05/14/17 10:58 AM) Total Protein 6.7 g/dL 8.0 g/dL [6.4-8.4 g/dL] (05/15/17 5:16 AM) (05/14/17 10:58 AM) Albumin Lvl [3.5-5.0 2.5 g/dL 3.1 g/dL g/dL] *LOW* *LOW* (05/15/17 5:16 AM) (05/14/17 10:58 AM) Globulin [2.7-4.2 4.2 g/dL 4.9 g/dL g/dL] (05/15/17 5:16 AM) *HI* (05/14/17 10:58 AM) A/G Ratio [0.7-1.6] 0.6 0.6 *LOW* *LOW* (05/15/17 5:16 AM) (05/14/17 10:58 AM) Calcium Lvl 8.8 mg/dL 9.2 mg/dL [8.5-10.5 mg/dL] (05/15/17 5:16 AM) (05/14/17 10:58 AM) ALT [0-65 unit/L] 25 unit/L 37 unit/L (05/15/17 5:16 AM) (05/14/17 10:58 AM) AST [0-37 unit/L] 12 unit/L 19 unit/L (05/15/17 5:16 AM) (05/14/17 10:58 AM) Alk Phos [39-136 123 unit/L 158 unit/L unit/L] (05/15/17 5:16 AM) *HI* (05/14/17 10:58 AM) Bili Total [0.2-1.3 0.8 mg/dL 0.7 mg/dL mg/dL] (05/15/17 5:16 AM) (05/14/17 10:58 AM) Lipase Lvl [73-393 117 unit/L unit/L] (05/14/17 10:58 AM) 1Result Comment: The eGFR is calculated using the [...] from the National Kidney Disease Education Program ( NKDEP) which additionally recommends that when the eGFR is used in patients with extremes of body mass index for purposes of drug dosing, the eGFR should be mul tiplied by the estimated BMI. 2Result Comment: The eGFR is calculated using the [...] from the National Kidney Disease Education Program ( NKDEP) which additionally recommends that when the eGFR is used in patients with extremes of body mass index for purposes of drug dosing, the eGFR should be mul tiplied by the estimated BMI. URINE AND STOOL Most recent to 1 2 oldest [Reference Range]: UA Turbidity [Clear] Clear (05/14/17 10:58 AM) UA Color [Yellow] Yellow *NA* (05/14/17 10:58 AM) UA pH [5.0-8.0] 5.0 (05/14/17 10:58 AM) UA Spec Grav 1.028 [<=1.030] (05/14/17 10:58 AM) UA Glucose [Negative Negative mg/dL mg/dL] *NA* (05/14/17 10:58 AM) UA Blood [Negative] Negative (05/14/17 10:58 AM) UA Ketones [Negative Negative mg/dL mg/dL] *NA* (05/14/17 10:58 AM) UA Protein [Negative Negative mg/dL mg/dL] (05/14/17 10:58 AM) UA Urobilinogen 2.0 mg/dL [0.1-1.0 mg/dL] *HI* (05/14/17 10:58 AM) UA Bili [Negative] Negative *NA* (05/14/17 10:58 AM) UA Leuk Est Negative [Negative] (05/14/17 10:58 AM) UA Nitrite Negative [Negative] (05/14/17 10:58 AM) UA WBC [0-5 /HPF] 2 /HPF (05/14/17 10:58 AM) UA RBC [0-2 /HPF] 3 /HPF *HI* (05/14/17 10:58 AM) UA Sq Epi [Few /LPF] Occasional /LPF *NA* (05/14/17 10:58 AM) UA Mucus [None Seen Few /LPF /LPF] *NA* (05/14/17 10:58 AM) HEMATOLOGY Most recent to 1 2 oldest [Reference Range]: WBC [3.7-10.4 K/CMM] 14.4 K/CMM 23.2 K/CMM *HI* *HI* (05/15/17 5:16 AM) (05/14/17 10:58 AM) RBC [4.70-6.10 4.65 M/CMM 5.15 M/CMM M/CMM] *LOW* (05/14/17 10:58 AM) (05/15/17 5:16 AM) Hgb [14.0-18.0 g/dL] 13.6 g/dL 15.2 g/dL *LOW* (05/14/17 10:58 AM) (05/15/17 5:16 AM) Hct [42.0-54.0 %] 40.5 % 45.2 % *LOW* (05/14/17 10:58 AM) (05/15/17 5:16 AM) MCV [80.0-94.0 fL] 87.3 fL 87.8 fL (05/15/17 5:16 AM) (05/14/17 10:58 AM) MCH [27.0-31.0 pg] 29.4 pg 29.5 pg (05/15/17 5:16 AM) (05/14/17 10:58 AM) MCHC [32.0-36.0 33.7 g/dL 33.7 g/dL g/dL] (05/15/17 5:16 AM) (05/14/17 10:58 AM) RDW [11.5-14.5 %] 13.2 % 13.0 % (05/15/17 5:16 AM) (05/14/17 10:58 AM) MPV [7.4-10.4 fL] 7.3 fL 7.5 fL *LOW* (05/14/17 10:58 AM) (05/15/17 5:16 AM) Platelet [133-450 378 K/CMM 426 K/CMM K/CMM] (05/15/17 5:16 AM) (05/14/17 10:58 AM) Segs [45.0-75.0 %] 72.8 % 84.3 % (05/15/17 5:16 AM) *HI* (05/14/17 10:58 AM) Lymphocytes 15.7 % 6.9 % [20.0-40.0 %] *LOW* *LOW* (05/15/17 5:16 AM) (05/14/17 10:58 AM) Monocytes [2.0-12.0 9.6 % 8.4 % %] (05/15/17 5:16 AM) (05/14/17 10:58 AM) Eosinophils [0.0-4.0 1.4 % 0.1 % %] (05/15/17 5:16 AM) (05/14/17 10:58 AM) Basophils [0.0-1.0 0.5 % 0.3 % %] (05/15/17 5:16 AM) (05/14/17 10:58 AM) Segs-Bands # 10.5 K/CMM 19.5 K/CMM [1.5-8.1 K/CMM] *HI* *HI* (05/15/17 5:16 AM) (05/14/17 10:58 AM) Lymphocytes # 2.3 K/CMM 1.6 K/CMM [1.0-5.5 K/CMM] (05/15/17 5:16 AM) (05/14/17 10:58 AM) Monocytes # [0.0-0.8 1.4 K/CMM 1.9 K/CMM K/CMM] *HI* *HI* (05/15/17 5:16 AM) (05/14/17 10:58 AM) Eosinophils # 0.2 K/CMM [0.0-0.5 K/CMM] (05/15/17 5:16 AM) Basophils # [0.0-0.2 0.1 K/CMM 0.1 K/CMM K/CMM] (05/15/17 5:16 AM) (05/14/17 10:58 AM) Immunizations No data available for this section Procedures Procedure Date Related Diagnosis Body Site Status Kidney operation Completed Social History Social History Type Response Smoking Status Former smoker; Exposure to Tobacco Smoke None; Cigarette Smoking Last 365 Days No; Reg Smoking Cessation Counseling No entered on: 05/14/17 Assessment and Plan Extracted from: Title: Clinical Document Author: Alberto Bell MD Date: 05/16/17 Progress Note - Daily [facility] Completed: Apr, 13:41 by Alberto Bell MD RM: 436 - 1, NE [id number], [id number] (: [id number]) M Attending: Hernán Coronahone: Service: Internal Medicine Reason for Admission: LOWER ABD PAIN Working DRG: Esophagitis, gastroent & misc digest disorders w/o [facility] Code status: None Specified=FULL CODECurrent diet: Isolation: No Isolation/Standard Precautions Allergies: penicillin SUBJECTIVE doing fine. no complaints of pain. no nausea OBJECTIVE abdomne soft. NTND avss aox3 breathing normally RRR no edema (no lab data in past 24 hours) Sosa still necessary (Yes/No): Line still necessary (Yes/No): VitalsTmp(F)[id number] 05/16 11:3998.361640/180189--- 05/16 08:0697.316814/987056--- 05/16 00:233372502/85--98--- 05/15 20:2398.709315/[id number]--- 05/15 19:34 1697 21% 24 Hr Tmax: 98.3F (36.83c) at 05/16 11:39Vital Signs are the last 5 in the past 48 hours. DateWt(kg)Wt(lb)Ht(cm)Ht(in)Method 05/14 (initial) 77.55 170.60Measured 67.64 66.00Stated I&ORecordInOutBal 04/2123hr Tot 100 0 100 04/2023hr Tot 1635 0 1635 Medications (20) Active [...] suspension) 30 mL PO Q4H 05/14/17 acetaminophen-hydrocodone (Brandeis 5/325 oral tablet) 1 tab PO Q6H 05/14/17 acetaminophen 650 mg PO Q4H 05/14/17 albuterol-ipratropium (DuoNeb inhalation solution) 3 ml NEB PRN 05/14/17 benzonatate (Tessalon Perles) 100 mg PO Q8H 05/14/17 bisacodyl 10 mg PA Daily 05/14/17 diphenhydrAMINE 25 mg PO Q6H [...] 1,000 mL 1,000 mL 50 ml/hr ASSESSMENT & EXAM diverticulitis PLAN & TREATMENT doing well ok to advance diet and dc home f/u 1-2 wks DIAGNOSES & PROBLEMS Ready for Discharge (Yes/No)? TEACHING ATTESTATION Extracted from: Title: Discharge Summary * Author: Hernán Corona DO [...] by surgery. f/u as outpatient . Extracted from: Title: General Admission H&P * Author: Hernán Corona DO Date: 05/14/17 Impression and Plan Diagnosis Acute diverticulitis HTN Anxiety HLD -start iv cipro and flagyl. start clear liquids. iv fluids. prn pain medication. surgery consulted. -resume home bp meds -resume home anxiety meds -resume home statin .
--- OUTSIDE RECORDS SUMMARY | 2018-09-06 21:57 | XMS REPORT | Summary of Care ---
Author Author [facility] Organization [facility] Address Unknown Phone Unavailable Encounter [facility] Encntr_clinton(FIN) [id number] Date(s): 06/11/17 - 06/11/17 [facility] [address] [address] [place] [address]- Discharge Disposition: Home or Self Care Attending Physician: William Puentes MD Referring Physician: William Puentes MD Vital Signs No data available for this section Problem List No data available for this section Allergies, Adverse Reactions, Alerts Substance Reaction Severity Status penicillin1 Active 1Pt tolerated zosyn on admission 05/15/17 Medications No data available for this section Results No data available for this section Immunizations No data available for this section Procedures Procedure Date Related Diagnosis Body Site Status Kidney operation Completed Social History Social History Type Response Smoking Status Former smoker; Exposure to Tobacco Smoke None; Cigarette Smoking Last 365 Days No; Reg Smoking Cessation Counseling No entered on: 05/14/17 Assessment and Plan No data available for this section
--- OUTSIDE RECORDS SUMMARY | 2018-09-06 21:58 | XMS REPORT | Summary of Care ---
Author Author [facility] Organization [facility] Address Unknown Phone Unavailable Encounter [facility] Encntr_alisabina(FIN) [id number] Date(s): 09/14/14 - 09/14/14 [facility] [address] [place] [address]- [phone] Discharge Disposition: Home Attending Physician: William Puentes MD Referring Physician: William Puentes MD Vital Signs No data available for this section Problem List No data available for this section Allergies, Adverse Reactions, Alerts No data available for this section Medications No data available for this section Results No data available for this section Immunizations No data available for this section Procedures No data available for this section Social History No data available for this section Assessment and Plan No data available for this section
--- OUTSIDE RECORDS SUMMARY | 2018-09-06 21:58 | XMS REPORT ---
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 Allergies, Adverse Reactions, Alerts This patient has no known allergies or adverse reactions. Medications This patient has no known medications. Results Test Description Test Time Test Comments Text Results Atomic Results Result Comments RENAL SCAN W/LASIX 2018-07-11 14:29:00 [place] [address] Patient Name: ARMINDA WEBSTER MR #: [id number] : 1950 Age/Sex: 68/M Req #: [id number] [facility] Physician: Ordered by: JOON RICHEY MD Report #: [id number] Location: [place] Room/Bed: Procedure: [id number] NM/RENAL SCAN W/LASALDA Exam Date: 07/11/18 Exam Time: 0830 REPORT STATUS: Signed Renal Scan with Lasix Washout Clinical information: Mcrae nephrosis with ureteral stricture. 68 M with persistent left flank pain. No recent stents; no recent UTIs. Comparison: Most recent prior renal scan with Lasix 12/28/2016 Technique: Following intravenous administration of 11 mCi of Tc-99m MAG3, dynamic images of the kidneys in the posterior projection were obtained through 40 minutes. Lasix 40 mg was administered intravenously at 10 minutes post injection of the tracer. Report: Left kidney: Perfusion of the left kidney is prompt. The kidney has a distorted slightly elongated reniform shape with thinning of the renal cortex, most marked in the lower pole. Extraction of tracer from the blood pool by the remaining renal parenchyma is normal. Clearance of tracer from the renal parenchyma is prompt. Dilated calices are seen throughout the kidney although the renal pelvis is only slightly prominent. Increased pooling of tracer within the dilated calices is seen. No net drainage of tracer from the pelvicalyceal system is seen prior to administration of Lasix. Washout of tracer from the pelvicalyceal system following administration of Lasix is very slow with a T- 1/2 of 30-40 minutes (normal less than 15 minutes). No significant stasis of tracer is seen within the left ureter. Right kidney: Perfusion to the right kidney is prompt. The right kidney has a normal reniform shape. Extraction of tracer by the renal parenchyma is normal. Clearance of tracer from the renal parenchyma is prompt. The pelvicalyceal system is not dilated. Physiologic pooling of tracer within the pelvicalyceal system is seen. Drainage of tracer from the pelvicalyceal system is prompt and adequate prior to administration of Lasix. No significant stasis of tracer is seen within the right ureter. Differential renal function: The left kidney contributes 40% of total renal function and the right kidney contributes 60% (normal 43-57%). Impression: 1. 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 Hydronephrosis is present. The washout pattern for the left kidney is prolonged but also stable compared to the prior study of 12/28/2016. 2. The function of the right kidney is generally normal. No hydronephrosis is present. No physiologically significant obstruction of the renal collecting system is present. The kidney and its drainage pattern are unchanged compared to the prior study. Signed by: Dr. Yanet Pérez M.D. on 07/11/2018 4:25 PM Dictated By: YANET PÉREZ MD [id number] Transcribed By: WENCESLAO on 07/11/18 9143 COPY TO: JOON RICHEY MD RENAL SCAN W/LASIX [facility] [address] [place] [address] Patient Name: ARMINDA WEBSTER MR #: [id number] : 1950 Age/Sex: 66/M Req #: [id number] Physician: Ordered by: JOON RICHEY MD Report #: [id number] Location: [place] Room/Bed: Procedure: [id number] NM/RENAL SCAN W/LASIX Exam Date: 12/28/16 Exam Time: 1340 REPORT STATUS: Signed Renal Scan with Lasix Washout Clinical information: Urethral stricture; left flank pain. Left ureteral stent placed 08/2016 to 10/2016. Comparison: Most recent prior renal scan with Lasix 08/02/2016 Technique: Following intravenous administration of 10 mCi of Tc-99m MAG3, dynamic images of the kidneys in the posterior projection were obtained through 40 minutes. Lasix 40 mg was administered intravenously at 10 minutes post injection of the tracer. Report: Left kidney: Perfusion of the left kidney is prompt. The kidney has a distorted slightly elongated reniform shape with thinning of the renal cortex. Extraction of tracer from the blood pool by the remaining renal parenchyma is normal. Clearance of tracer from the renal parenchyma is prompt. Dilated calices are seen throughout the kidney although the renal pelvis is only slightly prominent. Increased pooling of tracer within the dilated calices is seen. No net drainage of tracer from the pelvicalyceal system is seen prior to administration of Lasix. Washout of tracer from the pelvicalyceal system following administration of Lasix is very slow with a T- 1/2 of 30-40 minutes (normal less than 15 minutes). No significant stasis of tracer is seen within the left ureter. Right kidney: Perfusion to the right kidney is prompt. The right kidney has a normal reniform shape. Extraction of tracer by the renal parenchyma is normal. Clearance of tracer from the renal parenchyma is prompt. The pelvicalyceal system is not dilated. Physiologic pooling of tracer within the pelvicalyceal system is seen. Drainage of tracer from the pelvicalyceal system is prompt and adequate prior to administration of Lasix. No significant stasis of tracer is seen within the right ureter. Differential renal function: The left kidney contributes 35% of total renal function and the right kidney contributes 65% (normal 43-57%), unchanged compared to the prior study of 08/02/2016. Impression: 1. 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 Hydronephrosis is present. The washout pattern for the left kidney is stable to minimally worsened with T-1/2 slightly increased from 30 minutes to 35-40 minutes compared to the most recent prior renal scan. The appearance of the kidney is generally unchanged consistent with the stable differential function. 2. The function of the r ight kidney is generally normal. No hydronephrosis is present. No physiologically significant obstruction of the renal collecting system is present. 3. The differential renal function is preserved. Signed by: Dr. Yanet Pérez M.D. on 12/28/2016 6:51 PM Dictated By: YANET PÉREZ MD 50 Transcribed By: WENCESLAO on 12/28/161850 COPY TO: JOON RICHEY MD
--- OUTSIDE RECORDS SUMMARY | 2018-09-06 21:58 | XMS REPORT | Summary of Care ---
Author Organization Unknown Address Unknown Phone Unavailable Encounter [facility](TANIKA) [id number] Date(s): 04/07/14 - 04/07/[address] Discharge Disposition: Home Physician Attending: William Puentes MD Physician_Referring: William Puentes MD Reason for Visit ENLARGED KIDNEY Problem List No data available for this section Allergies, Adverse Reactions, Alerts No data available for this section Medications No data available for this section Medications Administered During Your Visit No data available for this section Immunizations No data available for this section
[2018-09-06] MEDS ORDERED: ACETAMINOPHEN 325 MG TAB PO ONE (22:15)
[2018-09-06 22:37] LABS: BASOPHILS # (AUTO) 0.1 (0.0-0.1); BASOPHILS % 0.2 % (0.0-1.0); EOSINOPHILS # (AUTO) 0.1 (0.0-0.4); EOSINOPHILS % 0.2 % (0.0-6.0); HEMATOCRIT 47.7 % (38.2-49.6); LYMPHOCYTES # (AUTO) 0.8 (1.0-3.2); LYMPHOCYTES % 2.9 % (18.0-39.1); MEAN CORPUSCULAR HEMOGLOBIN 29.7 pg (28-32); MEAN CORPUSCULAR HGB CONC 33.5 g/dL (31-35); MEAN CORPUSCULAR VOLUME 88.7 fL (81-99); MONOCYTES # (AUTO) 1.9 (0.2-0.8); MONOCYTES % 6.9 % (4.4-11.3); NEUTROPHILS # (AUTO) 25.1 (2.1-6.9); NEUTROPHILS % 88.8 % (38.7-80.0); PLATELET COUNT 230 x10e3/uL (140-360); RED BLOOD COUNT 5.38 x10e6/uL (4.3-5.7); RED CELL DISTRIBUTION WIDTH 12.4 % (11.7-14.4)
[2018-09-06 22:42] LABS: BILIRUBIN,URINE NEGATIVE (NEGATIVE); CLARITY,URINE SL CLOUDY (CLEAR); COLOR,URINE YELLOW (YELLOW); KETONES,URINE NEGATIVE (NEGATIVE); LEUKOCYTE ESTERASE ,URINE TRACE (NEGATIVE); NITRITE,URINE NEGATIVE (NEGATIVE); PROTEIN,URINE DIPSTICK 1+ (NEGATIVE); URINE UROBILINOGEN 2 mg/dL (0.2 - 1)
[2018-09-06 22:57] LABS: ALBUMIN 3.8 g/dL (3.5-5.0); ANION GAP 14.3 mmol/L (8-16); CALCIUM 9.8 mg/dL (8.4-10.2); CREATININE, SERUM 1.2 mg/dL (0.72-1.25); POTASSIUM 4.3 mmol/L (3.5-5.1)
[2018-09-06 23:00] LABS: BACTERIA,URINE MODERATE /HPF; EPITHELIAL CELLS,URINE FEW /LPF; RBC,URINE >50 /HPF (0-5); WBC,URINE (MAN) 21-50 /HPF (0-5)
[2018-09-06] MEDS ORDERED: CEFTRIAXONE SOD 1 GM/NS 50 ML 50 ML IV ONE (23:30)
[2018-09-07] VITALS (10 sets, daily range): BP systolic 119–134; BP diastolic 68–79
[2018-09-07] MEDS ORDERED: MORPHINE SULFATE 2 MG/ML SYR 1ML IV PRN
[2018-09-07] MEDS ORDERED: ONDANSETRON HCL INJ 2MG/ML 2ML 2 MG/ML VIAL IV PRN
[2018-09-07] MEDS ORDERED: METOPROLOL SUCC25 MG PO (00:17)
[2018-09-07] MEDS ORDERED: MYSOLINE50 MG PO (00:17)
[2018-09-07] MEDS ORDERED: CO Q-10100 MG PO (00:18)
[2018-09-07] MEDS ORDERED: LEVAQUIN500 MG PO (00:19)
[2018-09-07] MEDS: SODIUM CHLORIDE 0.9% 1000ML 1,000 ML IV SCH ×4 (00:33→18:18)
[2018-09-07] MEDS ORDERED: SODIUM CHLORIDE 0.9% 50ML 50 ML ONE (00:35)
[2018-09-07] MEDS ORDERED: IOPAMIDOL 370 MG/ML 200 ML INFUS..BTL INJ ONE (00:36)
--- OUTSIDE RECORDS SUMMARY | 2018-09-07 00:45 | XMS REPORT | Continuity of Care Document ---
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 Role Phone [email or web address] Unavailable Unavailable Problems Problem Status Onset Date Classification Date Reported Comments Source N13.1 Active 05/30/2017 [facility] Diverticulitis of large intestine without perforation or abscess without bleeding 05/22/2017 08/22/2017 [facility] LOWER ABD PAIN Active 2017 [facility] 587 Active 09/10/2014 [facility] 333.1 - TREMOR NEC V70.0 - ROUTINE MEDIC Active 04/03/2014 [facility] Outpatient Imaging [facility] ENLARGED KIDNEY Active 04/03/2014 [facility] Pure hypercholesterolemia, unspecified 08/22/2017 [facility] Anxiety disorder, unspecified 08/22/2017 [facility] Essential hypertension 08/22/2017 [facility] Tremor, unspecified 08/22/2017 [facility] Personal history of nicotine dependence 08/22/2017 [facility] KIDNEY ANOMALY NEC Active [facility] RENAL SCLEROSIS NOS Active [facility] DVTRCLI OF INTEST, PART UNSP, W/O PERF O Active [facility] HYDRONEPHROSIS W URETERAL STRICTURE, NEC Active [facility] Medications Medication Details Route Status Patient Instructions Ordering Provider Order Date Source Metronidazole 500 MG Oral Tablet [Flagyl] 500 mg=1 tab, PO, Q8H, X 7 day, # 21 tab, 0 Refill(s), [facility]acy: [id number] No Longer Active 05/17/2017 [facility] Ciprofloxacin 500 MG Oral Tablet [Cipro] 500 mg=1 tab, PO, Q12H, X 7 day, # 14 tab, 0 Refill(s), Pharmacy: [id number] No Longer Active 05/17/2017 [facility] Metronidazole 500 MG Oral Tablet [Flagyl] 500 mg=1 tab, PO, Q8H, X 7 day, # 21 tab, 0 Refill(s), other Inactive 05/16/2017 [facility] Acetaminophen 300 MG / Codeine Phosphate 30 MG Oral Tablet [Tylenol with Codeine #3] 1 tab, PO, Q6H, PRN Pain, X 7 day, # 28 tab, 0 Refill(s) No Longer Active 05/16/2017 [facility] Ciprofloxacin 500 MG Oral Tablet [Cipro] 500 mg=1 tab, PO, Q12H, X 7 day, # 14 tab, 0 Refill(s), other Inactive 05/16/2017 [facility] Sodium Chloride 0.9% IV 1,000 mL 1,000 mL, Rate: 50 ml/hr, Infuse over: 20 hr, Route: IV, Dosing Weight 76.392 kg, Total Volume: 1,000, Start date: 05/15/17 11:54:00 CDT, Stop date: 06/14/17 11:53:00 CDT, 1.9, m2 No Longer Active 05/15/2017 [facility] 200 ML Ciprofloxacin 2 MG/ML Injection 400 mg, 200 mL, Route: IVPB, Drug form: INJ, [id number], Dosing Weight 77.545, kg, Start date: 05/15/17 1:00:00 CDT, Duration: 14 day, Stop date: 05/28/17 13:00:00 CDT, ABX Indication: Intra-abdominal InfectionNotes: Do not refrigerate Inactive 05/15/2017 [facility] Flagyl 500 mg, 100 mL, Route: IVPB, Drug form: INJ, Q8H, Dosing Weight 77.545, kg, Start date: 05/14/17 22:00:00 CDT, Duration: 30 day, Stop date: 06/13/17 14:00:00 CDT, ABX Indication: Intra-abdominal Infe ctionNotes: (Same as: Flagyl) Avoid alcohol. No Longer Active 05/15/2017 [facility] Zosyn 3.375 gm, Route: IVPB, Drug form: PDR/INJ, ABXQ8H, Dosing Weight 76.392, kg, CrCl >=20 ml/min infuse over 4 hours, Start date: 05/14/17 22:00:00 CDT, Duration: 14 day, Stop date: 05/28/17 14:00:00 CDT, diverticulitis, ABX Indication: Other (specify i... Inactive 05/15/2017 [facility] Crestor 5 mg, 0.5 tab, Route: PO, Drug form: TAB, Bedtime, Dosing Weight 76.392, kg, Start date: 05/14/17 21:00:00 CDT, Duration: 30 day, Stop date: 06/12/17 21:00:00 CDTNotes: (Same As: Crestor) No Longer Active 05/15/2017 [facility] Clonazepam 0.5 mg, 1 tab, Route: PO, Drug form: TAB, BID, Dosing Weight 76.392, kg, Start date: 05/14/17 21:00:00 CDT, Duration: 30 day, Stop date: 06/13/17 9:00:00 CDTNotes: (Same As: KlonoPIN) No Longer Active 05/15/2017 [facility] Atenolol 12.5 mg, 0.5 tab, Route: PO, Drug form: TAB, Daily, Dosing Weight 76.392, kg, Start date: 05/14/17 21:00:00 CDT, Duration: 30 day, Stop date: 06/13/17 9:00:00 CDTNotes: (Same As:Tenormin) No Longer Active 05/15/2017 [facility] Streptococcus pneumoniae serotype 1 capsular antigen diphtheria [id number] protein conjugate vaccine / Streptococcus pneumoniae serotype 14 capsular antigen diphtheria [id number] protein conjugate vaccine / Streptococcus pneumoniae serotype 18C capsular antigen d 0.5 mL, Route: IM, Drug Form: INJ, ONCALL, Start date: 05/14/17 19:00:00 CDT, Duration: 30 day, Stop date: 06/13/17 18:59:00 CDTNotes: Shake well prior to use (Same as: Prevnar 13) No Longer Active 05/15/2017 [facility] Atenolol 12.5 mg, PO, Daily, 0 Refill(s) Active 2017 [facility] Rosuvastatin calcium 5 MG Oral Tablet [Crestor] 5 mg=1 tab, PO, Bedtime, # 30 tab, 0 Refill(s) Active 2017 [facility] clonazePAM 0.5 mg oral tablet 0.5 mg=1 tab, PO, BID, # 30 tab, 0 Refill(s) Active 2017 [facility] Probiotic Formula oral capsule 1 cap, PO, Daily, 0 Refill(s) Active 2017 [facility] Albuterol 0.833 MG/ML / Ipratropium [place] 0.167 MG/ML Inhalant Solution [DuoNeb] 3 ml, Route: NEB, Drug Form: SOLN, Dosing Weight 77.545, kg, PRN, PRN Respiratory Protocol, Start date: 05/14/17 15:30:00 CDT, Duration: 30 day, Stop date: 06/13/17 15:29:00 CDTNotes: (Same as: Duoneb) No Longer Active 2017 [facility] Hydralazine 10 mg, 0.5 mL, Route: IVP, Drug form: INJ, Q6H, Dosing Weight 77.545, kg, PRN Hypertension, SBP>160, Start date: 05/14/17 15:30:00 CDT, Duration: 30 day, Stop date: 06/13/17 15:29:00 CDTNotes: (Same as: Apresoline) Push over 5 minutes No Longer Active 2017 [facility] Trazodone Hydrochloride 50 MG Oral Tablet 50 mg, 1 tab, Route: PO, Drug form: TAB, Bedtime, Dosing Weight 77.545, kg, PRN Insomnia, Start date: 05/14/17 15:30:00 CDT, Duration: 30 day, Stop date: 06/13/17 15:29:00 CDTNotes: (Same As: Desyrel) No Longer Active 2017 [facility] Acetaminophen 650 mg, 2 tab, Route: PO, Drug form: TAB, Q4H, Dosing Weight 77.545, kg, PRN For Temp > 100.4 F, Start date: 05/14/17 15:30:00 CDT, Duration: 30 day, Stop date: 06/13/17 15:29:00 CDTNotes: Do not exceed 4 gm/day. (Same as: Tylenol) No Longer Active 2017 [facility] Diphenhydramine 25 mg, 1 tab, Route: PO, Drug form: TAB, Q6H, Dosing Weight 77.545, kg, PRN Itching, Start date: 05/14/17 15:30:00 CDT, Duration: 30 day, Stop date: 06/13/17 15:29:00 CDT No Longer Active 2017 [facility] Tessalon Perles 100 mg, 1 cap, Route: PO, Drug form: CAP, Q8H, Dosing Weight 77.545, kg, PRN Cough, Start date: 05/14/17 15:30:00 CDT, Duration: 30 day, Stop date: 06/13/17 15:29:00 CDTNotes: (Same As: Tessalon Ama es) "Do Not Crush" No Longer Active 2017 [facility] Ondansetron 4 mg, 2 mL, Route: IVP, Drug form: INJ, Q8H, Dosing Weight 77.545, kg, PRN Nausea & Vomiting, Start date: 05/14/17 15:30:00 CDT, Duration: 30 day, Stop date: 06/13/17 15:29:00 CDTNotes: (Same as: Michael) MEDICATION WASTE Product Size: 4 mg Product Wasted: ___ mg No Longer Active 2017 [facility] Simethicone 80 mg, 1 tab, Route: PO, Drug form: CHEWTAB, Q6H, Dosing Weight 77.545, kg, PRN Gas, Start date: 05/14/17 15:30:00 CDT, Duration: 2 doses or times, Stop date: Limited # of timesNotes: (Same as: Cata on) No Longer Active 2017 [facility] Aluminum Hydroxide 40 MG/ML / Magnesium Hydroxide 40 MG/ML / Simethicone 4 MG/ML Oral Suspension 30 mL, Route: PO, Drug Form: SUSP, Dosing Weight 77.545, kg, Q4H, PRN Indigestion, Start date: 05/14/17 15:30:00 CDT, Duration: 30 day, Stop date: 06/13/17 15:29:00 CDTNotes: (aluminum hydroxide-magnesium hyd- simethicone [phone]/5ml RICK) (Same as: Maalox Plus Extra Strength) No Longer Active 2017 [facility] Milk of Magnesia 30 mL, Route: PO, Drug Form: SUSP, Dosing Weight 77.545, kg, Q3H, PRN Constipation, Start date: 05/14/17 15:30:00 CDT, Duration: 2 doses or times, Stop date: Limited # of timesNotes: (Same as: Milk o f Magnesia, MOM) No Longer Active 2017 [facility] Bisacodyl 10 mg, 1 supp, Route: FL, Drug form: SUPP, Daily, Dosing Weight 77.545, kg, PRN Constipation, Start date: 05/14/17 15:30:00 CDT, Duration: 30 day, Stop date: 06/13/17 15:29:00 CDTNotes: (Same As: Dulcolax, Bisco-Lax) No Longer Active 2017 [facility] Saline Flush 0.9% 10 ml, Route: IVP, Drug Form: INJ, Dosing Weight 77.545, kg, PRN, PRN Line Flush, Start date: 05/14/17 15:30:00 CDT, Duration: 30 day, Stop date: 06/13/17 15:29:00 CDTNotes: (Same as: BD Posiflush) No Longer Active 2017 [facility] Sodium Chloride 0.9% IV 1,000 mL 1,000 mL, Rate: 100 ml/hr, Infuse over: 10 hr, Route: IV, Dosing Weight 77.545 kg, Total Volume: 1,000, Start date: 05/14/17 15:30:00 CDT, Duration: 30 day, Stop date: 06/13/17 15:29:00 CDT, 1.92, m2 No Longer Active 2017 [facility] Morphine 6 mg, 3 mL, Route: PO, Drug form: SOLN, Q4H, Dosing Weight 77.545, kg, PRN Pain Score 7-10, Start date: 05/14/17 15:27:00 CDT, Duration: 30 day, Stop date: 06/13/17 15:26:00 CDTNotes: (Same as:MORPhine Sulfate) No Longer Active 2017 [facility] Acetaminophen 325 MG / Hydrocodone Bitartrate 5 MG Oral Tablet [Philpot 5/325] 1 tab, Route: PO, Drug Form: TAB, Dosing Weight 77.545, kg, Q6H, PRN Pain Score 1-3, Start date: 05/14/17 15:27:00 CDT, Duration: 30 day, Stop date: 06/13/17 15:26:00 CDTNotes: (Same as: Philpot 325/5) Do not exceed 4gm/day of acetaminophen. No Longer Active 2017 [facility] Fentanyl 75 microgram, 1.5 mL, Route: IVP, Drug form: INJ, ONCE, Dosing Weight 77.545, kg, Priority: STAT, Start date: 05/14/17 13:43:00 CDT, Stop date: 05/14/17 13:43:00 CDTNotes: (Same as: Sublimaze) Preservative free. Inactive 2017 [facility] Metronidazole 500 mg, 100 mL, Route: IVPB, Drug form: INJ, ONCE, Dosing Weight 77.545, kg, Priority: STAT, Start date: 05/14/17 13:24:00 CDT, Stop date: 05/14/17 13:24:00 CDT, ABX Indication: Other (specify in Com ments)Notes: (Same as: Flagyl) Avoid alcohol. Inactive 2017 [facility] Cipro 400 mg, 200 mL, Route: IVPB, Drug form: INJ, ONCE, Dosing Weight 77.545, kg, Priority: STAT, Start date: 05/14/17 13:24:00 CDT, Stop date: 05/14/17 13:24:00 CDT, ABX Indication: Other (specify in Com ments)Notes: Do not refrigerate Inactive 2017 [facility] Omnipaque 300 injectable solution 100 mL, Route: IVP, Drug Form: SOLN, Dosing Weight 77.545, kg, ONCE, GFR > 45 mL/min, STAT, Start date: 05/14/17 11:49:00 CDT, Stop date: 05/14/17 11:49:00 CDTNotes: (Same as:Omnipaque 300). WASTE: F/P - Black; E - Municipal Trash Bin Inactive 2017 [facility] NS (Bolus) IV 1,000 mL, 1000 ml/hr, Infuse Over: 1 hr, Route: IV, 1,000, Drug form: INJ, ONCE, Priority: STAT, Dosing Weight 77.545 kg, Start date: 05/14/17 10:17:00 CDT, Stop date: 05/14/17 10:17:00 CDT Inactive 2017 [facility] Allergies, Adverse Reactions, Alerts Substance Category Reaction Severity Reaction type Status Date Reported Comments Source penicillin<sup>1</sup> Assertion Drug allergy Active Pt tolerated zosyn on admission 05/15/17 [facility] Immunizations No Data Provided for This Section Results Order Name Results Value Reference Range Date Interpretation Comments Source CHEM PANEL A/G Ratio 0.6 0.7 - 1.6 05/15/2017 [facility] CHEM PANEL Globulin 4.2 2.7 - 4.2 05/15/2017 [facility] CHEM PANEL AGAP 12.0 10.0 - 20.0 05/15/2017 [facility] CHEM PANEL B/C Ratio 9 6 - 25 05/15/2017 [facility] CHEM PANEL Total Protein 6.7 6.4 - 8.4 05/15/2017 [facility] CHEM PANEL Calcium Lvl 8.8 8.5 - 10.5 05/15/2017 [facility] CHEM PANEL Alk Phos 123 39 - 136 05/15/2017 [facility] CHEM PANEL Bili Total 0.8 0.2 - 1.3 05/15/2017 [facility] CHEM PANEL eGFR 76 05/15/2017 Result Comment: [...] should be multiplied by the estimated BMI. [facility] CHEM PANEL CO2 24 24 - 32 05/15/2017 [facility] CHEM PANEL Chloride Lvl 107 95 - 109 05/15/2017 [facility] CHEM PANEL ALT 25 0 - 65 05/15/2017 [facility] CHEM PANEL AST 12 0 - 37 05/15/2017 [facility] CHEM PANEL Albumin Lvl 2.5 3.5 - 5.0 05/15/2017 [facility] CHEM PANEL Potassium Lvl 4.0 3.5 - 5.1 05/15/2017 [facility] CHEM PANEL Sodium Lvl 139 135 - 145 05/15/2017 [facility] CHEM PANEL Creatinine Lvl 1.00 0.50 - 1.40 05/15/2017 [facility] CHEM PANEL BUN 9 7 - 22 05/15/2017 [facility] CHEM PANEL Glucose Lvl 98 70 - 99 05/15/2017 [facility] HEMATOLOGY Basophils # 0.1 0.0 - 0.2 05/15/2017 [facility] HEMATOLOGY Monocytes 9.6 2.0 - 12.0 05/15/2017 [facility] HEMATOLOGY Lymphocytes 15.7 20.0 - 40.0 05/15/2017 [facility] HEMATOLOGY Segs 72.8 45.0 - 75.0 05/15/2017 [facility] HEMATOLOGY Basophils 0.5 0.0 - 1.0 05/15/2017 [facility] HEMATOLOGY Eosinophils 1.4 0.0 - 4.0 05/15/2017 [facility] HEMATOLOGY Segs-Bands # 10.5 1.5 - 8.1 05/15/2017 [facility] HEMATOLOGY Lymphocytes # 2.3 1.0 - 5.5 05/15/2017 [facility] HEMATOLOGY Eosinophils # 0.2 0.0 - 0.5 05/15/2017 [facility] HEMATOLOGY Monocytes # 1.4 0.0 - 0.8 05/15/2017 [facility] HEMATOLOGY RDW 13.2 11.5 - 14.5 05/15/2017 [facility] HEMATOLOGY Platelet 378 133 - 450 05/15/2017 [facility] MPV 7.3 7.4 - 10.4 05/15/2017 [facility] HEMATOLOGY MCV 87.3 80.0 - 94.0 05/15/2017 [facility] MCH 29.4 27.0 - 31.0 05/15/2017 [facility] MCHC 33.7 32.0 - 36.0 05/15/2017 [facility] HEMATOLOGY RBC 4.65 4.70 - 6.10 05/15/2017 [facility] HEMATOLOGY WBC 14.4 3.7 - 10.4 05/15/2017 [facility] HEMATOLOGY Hct 40.5 42.0 - 54.0 05/15/2017 [facility] HEMATOLOGY Hgb 13.6 14.0 - 18.0 05/15/2017 [facility] CHEM PANEL eGFR 75 2017 Result Comment: [...] Bili Total 0.7 0.2 - 1.3 2017 [facility] CHEM PANEL ALT 37 0 - 65 2017 [facility] CHEM PANEL Alk Phos 158 39 - 136 2017 [facility] CHEM PANEL AST 19 0 - 37 2017 [facility] CHEM PANEL Albumin Lvl 3.1 3.5 - 5.0 2017 [facility] CHEM PANEL Chloride Lvl 101 95 - 109 2017 [facility] CHEM PANEL Potassium Lvl 4.4 3.5 - 5.1 2017 [facility] CHEM PANEL Total Protein 8.0 6.4 - 8.4 2017 [facility] CHEM PANEL Calcium Lvl 9.2 8.5 - 10.5 2017 [facility] CHEM PANEL CO2 27 24 - 32 2017 [facility] CHEM PANEL BUN 13 7 - 22 2017 [facility] CHEM PANEL Creatinine Lvl 1.02 0.50 - 1.40 2017 [facility] CHEM PANEL Glucose Lvl 101 70 - 99 2017 [facility] CHEM PANEL Sodium Lvl 133 135 - 145 2017 [facility] CHEM PANEL Globulin 4.9 2.7 - 4.2 2017 [facility] CHEM PANEL A/G Ratio 0.6 0.7 - 1.6 2017 [facility] CHEM PANEL AGAP 9.4 10.0 - 20.0 2017 [facility] CHEM PANEL B/C Ratio 13 6 - 25 2017 [facility] CHEM PANEL Lipase Lvl 117 73 - 393 2017 [facility] HEMATOLOGY WBC 23.2 3.7 - 10.4 2017 [facility] HEMATOLOGY RBC 5.15 4.70 - 6.10 2017 [facility] HEMATOLOGY Hct 45.2 42.0 - 54.0 2017 [facility] HEMATOLOGY Hgb 15.2 14.0 - 18.0 2017 [facility] HEMATOLOGY RDW 13.0 11.5 - 14.5 2017 [facility] MCH 29.5 27.0 - 31.0 2017 [facility] MCHC 33.7 32.0 - 36.0 2017 [facility] MPV 7.5 7.4 - 10.4 2017 [facility] Platelet 426 133 - 450 2017 [facility] MCV 87.8 80.0 - 94.0 2017 [facility] HEMATOLOGY Segs 84.3 45.0 - 75.0 2017 [facility] HEMATOLOGY Lymphocytes 6.9 20.0 - 40.0 2017 [facility] HEMATOLOGY Eosinophils 0.1 0.0 - 4.0 2017 [facility] HEMATOLOGY Segs-Bands # 19.5 1.5 - 8.1 2017 [facility] Lymphocytes # 1.6 1.0 - 5.5 2017 [facility] HEMATOLOGY Basophils # 0.1 0.0 - 0.2 2017 [facility] HEMATOLOGY Basophils 0.3 0.0 - 1.0 2017 [facility] HEMATOLOGY Monocytes # 1.9 0.0 - 0.8 2017 [facility] Monocytes 8.4 2.0 - 12.0 2017 [facility] URINE AND STOOL UA Sq Epi Occasional /LPF Few /LPF 2017 [facility] URINE AND STOOL UA WBC 2 0 - 5 2017 [facility] URINE AND STOOL UA Bili Negative *NA* (05/14/17 10:58 AM) Negative 2017 [facility] URINE AND STOOL UA Blood Negative (05/14/17 10:58 AM) Negative 2017 [facility] URINE AND STOOL UA Urobilinogen 2.0 0.1 - 1.0 2017 [facility] URINE AND STOOL UA Nitrite Negative (05/14/17 10:58 AM) Negative 2017 [facility] URINE AND STOOL UA Leuk Est Negative (05/14/17 10:58 AM) Negative 2017 [facility] URINE AND STOOL UA Spec Grav 1.028 <=1.030 2017 [facility] URINE AND STOOL UA Protein Negative mg/dL Negative mg/dL 2017 [facility] URINE AND STOOL UA Glucose Negative mg/dL Negative mg/dL 2017 [facility] URINE AND STOOL UA Ketones Negative mg/dL Negative mg/dL 2017 [facility] URINE AND STOOL UA pH 5.0 5.0 - 8.0 2017 [facility] URINE AND STOOL UA RBC 3 0 - 2 2017 [facility] URINE AND STOOL UA Mucus Few /LPF None Seen /LPF 2017 [facility] URINE AND STOOL UA Turbidity Clear (05/14/17 10:58 AM) Clear 2017 [facility] URINE AND STOOL UA Color Yellow *NA* (05/14/17 10:58 AM) Yellow 2017 [facility] Pathology Reports No Data Provided for This [...] of 27.2 minutes versus 201.38 minutes). SL: [id number] 06/11/2017 [facility] ED Abdomen/Pelvis IV contrast only CT Clinical Indication: - Lower abdominal pain; Comparison: 04/07/2014 TECHNIQUE: Helical imaging was performed from the diaphragm through the symphysis with multiplanar reformations obtained. IV CONTRAST: 100 cc Omnipaque 300 ORAL CONTRAST: Not given CT Radiation Dose: VKP=502.95 mGy-cm FINDINGS: LOWER CHEST: The lung bases [...] hydronephrosis compared to April 07, 2014. SL: [id number] 2017 [facility] Renal Lasix Scan [place] NAME: ARMINDA WEBSTER : 1950 SEX: M [...] 62% on the right). SL: 24 09/14/2014 [facility] Brain wo contrast MRI Name: ARMINDA WEBSTER [...] unremarkable noncontrast MRI of the brain. 04/15/2014 [facility] Outpatient Imaging [facility] Spine cervical wo contrast MRI Name: ARMINDA [...] associated neural foraminal stenosis SL: 24 04/15/2014 [facility] Outpatient Imaging [facility] Abdomen/Pelvis w/wo IV contrast CT Name: ARMINDA [...] Diverticulosis without evidence of diverticulitis. SL:54 04/07/2014 [facility] Renal scan w function study NM Name: [...] Lasix in the left kidney.. SL:54 04/07/2014 [facility] Consultation Notes No Data Provided for This Section Discharge Summaries No Data Provided for This Section History and Physicals No Data Provided for This Section Vital Signs Vital Sign Value Date Comments Source Systolic (mm Hg) 142 05/16/2017 [facility] Diastolic (mm Hg) 83 05/16/2017 [facility] Temperature Oral (F) 98.0 F 05/16/2017 [facility] Heart Rate 71 05/16/2017 [facility] Respitory Rate 18 05/16/2017 [facility] Systolic (mm Hg) 136 05/16/2017 [facility] Diastolic (mm Hg) 81 05/16/2017 [facility] Heart Rate 59 05/16/2017 [facility] Temperature Oral (F) 98.3 F 05/16/2017 [facility] Systolic (mm Hg) 132 05/16/2017 [facility] Diastolic (mm Hg) 81 05/16/2017 [facility] Temperature Oral (F) 97.6 F 05/16/2017 [facility] Respitory Rate 18 05/16/2017 [facility] Heart Rate 67 05/16/2017 [facility] Respitory Rate 18 05/16/2017 [facility] Weight 76.392 2017 [facility] BMI Calculated 27.18 2017 [facility] Height 167.64 cm 2017 [facility] Height 167.64 cm 2017 [facility] BMI Calculated 27.59 2017 [facility] Weight 77.545 2017 [facility] Encounters Location Location Details Encounter Type Encounter Number Reason For Visit Attending Provider ADM Date DC Date Status Source [facility] Outpatient [id number] William Hampel 04/07/2014 04/08/2014 [facility] Outpatient [id number] William Hampel 09/14/2014 09/15/2014 [facility] Inpatient [id number] Hernán Corona 2017 05/17/2017 [facility] Outpatient [id number] William Hampel 06/11/2017 06/12/2017 [facility] Procedures Procedure Code Date Perfomer Comments Source Kidney operation [id number] [facility] Assessment and Plan Assessment and Plan Date Source Extracted from:Title: Clinical Document Author: Alberto Bell MD Date: 05/16/17 Progress Note - Daily [facility] Completed: Apr, 13:41 by Alberto Bell MD RM: 436 - 1, NE LMS4 ARMINDA WEBSTER 67y (: 1950) Attending: Hernán Corona DO Service: Internal Medicine Reason for Admission: LOWER ABD PAIN Working DRG: Esophagitis, gastroent and misc digest disorders w/o [facility] Code status: None Specified=FULL CODE Current diet: [...] suspension) 30 mL PO Q4H 05/14/17 acetaminophen-hydrocodone (Philpot 5/325 oral tablet) 1 tab PO Q6H 05/14/17 acetaminophen 650 mg PO Q4H 05/14/17 albuterol-ipratropium (DuoNeb inhalation solution) 3 ml NEB PRN 05/14/17 benzonatate (Tessalon Perles) 100 mg PO Q8H 05/14/17 bisacodyl 10 mg [place] Daily 05/14/17 diphenhydrAMINE 25 mg PO Q6H [...] Cessation Counseling No entered on: 05/14/17 2017 [facility] Family History No Data Provided for This Section Advance Directives No Data Provided for This Section Functional Status No Data Provided for This Section
--- NOTE | 2018-09-07 01:15 | NUR ---
Patient transferred from ER via stretcher. A&Ox4, respirations even & unlabored, no distress noted. Ambulatory w/o assist. IV to L AC, patent & no infiltration noted. Tele # [phone]. Patient denies any pain, issues or needs at this time. Call light within reach, side rails x2 raised & bed set to lowest position.
--- NOTE | 2018-09-07 01:44 | Diagnostic Imaging Report ---
EXAM: CT Pelvis WITH contrast INDICATION: Abdominal pain, Fever status post prostate biopsy COMPARISON: None. TECHNIQUE: Pelvis were scanned utilizing a multidetector helical scanner from the iliac crest to the pubic symphysis after administration of IV contrast. Coronal and sagittal reformations were obtained. Routine protocol was performed. Scan was performed when during portal venous phase. IV CONTRAST: 100 mL of Isovue 370 ORAL CONTRAST: None COMPLICATIONS: None RADIATION DOSE: Total DLP: 316 mGy*cm Estimated effective dose: (DLP x 0.015 x size factor) mSv CTDIvol has been reviewed. It is below the limits set by the Radiation Protocol Committee (RPC). Dose modulation, iterative reconstruction, and/or weight based adjustment of the mA/kV was utilized to reduce the radiation dose to as low as reasonably achievable. FINDINGS: LINES and TUBES: None. GI TRACT: No abnormal distention, wall thickening, or evidence of bowel obstruction. Sigmoid diverticuli. Appendix is normal. PELVIC ORGANS/BLADDER: A 2.3 cm nodular mural based endoluminal exophytic solid lesion arising from the posterior aspect of the bladder (series 2 image 27).. Moderate prostatomegaly and prostate heterogeneity. LYMPH NODES: No lymphadenopathy. VESSELS: There is mild atherosclerotic disease in the aorta and major arterial branches. PERITONEUM / RETROPERITONEUM: No free air or fluid. BONES: There are degenerative changes in the lumbar spine. SOFT TISSUES: Unremarkable. IMPRESSION: 1. A 2.3 cm mucosal nodular lesion along the posterior aspect of the urinary bladder is suspicious for bladder neoplasm. Recommend urology referral. 2. Moderate prostatomegaly, underlying prostatitis is a consideration. No abscess. Prostate heterogeneity may be due to hemorrhage related to recent biopsy. 3. Sigmoid diverticulosis without diverticulitis. Signed by: Mat Vargas DO on 09/07/2018 1:41 AM
--- NOTE | 2018-09-07 06:43 | NUR ---
Consult call placed w/ Dr. Smith
--- NOTE | 2018-09-07 07:00 | NUR ---
RECEIVED BEDSIDE SHIFT REPORT FROM THE METHODS ANALYST RN. PT DENIES NEEDS AT THIS TIME.
[2018-09-07 09:17] LABS: BASOPHILS # (AUTO) 0.1 (0.0-0.1); BASOPHILS % 0.3 % (0.0-1.0); HEMATOCRIT 44.1 % (38.2-49.6); HEMOGLOBIN 14.6 g/dL (14.0-18.0); LYMPHOCYTES # (AUTO) 0.7 (1.0-3.2); LYMPHOCYTES % 2.8 % (18.0-39.1); MEAN CORPUSCULAR HEMOGLOBIN 29.5 pg (28-32); MEAN CORPUSCULAR HGB CONC 33.1 g/dL (31-35); MEAN CORPUSCULAR VOLUME 89.1 fL (81-99); MONOCYTES % 4.3 % (4.4-11.3); NEUTROPHILS # (AUTO) 21.8 (2.1-6.9); NEUTROPHILS % 91.8 % (38.7-80.0); PLATELET COUNT 187 x10e3/uL (140-360); RED BLOOD COUNT 4.95 x10e6/uL (4.3-5.7); RED CELL DISTRIBUTION WIDTH 12.6 % (11.7-14.4)
[2018-09-07] MEDS ORDERED: MORPHINE SULFATE INJ 4 MG/ML INJ 1ML IV PRN (09:30)
--- NOTE | 2018-09-07 09:30 | NUR ---
URINE CULTURE GIVEN TO THE LAB.
[2018-09-07 09:53] LABS: ANION GAP 11.8 mmol/L (8-16); CREATININE, SERUM 1.22 mg/dL (0.72-1.25); POTASSIUM 4.8 mmol/L (3.5-5.1)
[2018-09-07 09:54] LABS: ALBUMIN 3.1 g/dL (3.5-5.0); ALBUMIN/GLOBULIN RATIO 0.9 (0.8-2.0); CALCIUM 9.3 mg/dL (8.4-10.2); MAGNESIUM 1.9 MG/DL (1.3-2.1); PHOSPHORUS 1.7 MG/DL (2.3-4.7)
[2018-09-07] MEDS: COENZYME Q10 100 MG PO SCH (13:15)
[2018-09-07] MEDS: CEFTRIAXONE SOD 1 GM/NS 50 ML 50 ML IV SCH (13:57)
--- NOTE | 2018-09-07 19:00 | NUR ---
BEDSIDE SHIFT REPORT GIVEN TO THE MILIEU COUNSELOR RN. PT DENIED FURTHER NEEDS
--- NOTE | 2018-09-07 19:22 | NUR ---
Patient received sitting up in bed. AAO x 4. Patient had no complaints of pain. No signs of respiratory distress. IVF infusing at 125 cc/hr. Bed locked and in lowest position. Bed rails up x 2. Patient instructed to call for assistance when needed. Call light within reach.
--- NOTE | 2018-09-07 19:44 | Diagnostic Imaging Report ---
EXAM: Gallbladder Ultrasound INDICATION: Elevated LFTs COMPARISON: None. TECHNIQUE: Transverse and longitudinal images of the gallbladder were obtained. FINDINGS: Liver: Homogeneous hepatic echotexture. No grossly enlarged. No focal mass. Main portal vein nondilated and normal flow direction. Right kidney normal in size and echotexture. No mass or stone identified. No gross abnormalities in the area of the pancreatic head/neck although the pancreas is not well seen. Gallbladder: Stones/Sludge: None Wall: 0.32 cm, upper limit of normal. Appearance: No wall thickening, pericholecystic fluid or hydrops. Sonographic Dior's Sign: Negative Bile Ducts: Intrahepatic Ducts: No dilatation Extrahepatic Ducts: Common bile duct measures 0.3 cm, no dilatation Free Fluid: No ascites or pleural effusion Mild atherosclerosis in the infrarenal abdominal aorta. Visualized portions of the IVC are unremarkable. IMPRESSION: Gallbladder wall thickness measures upper limits of normal, likely because the gallbladder is partially contracted. No gallstones identified, low suspicion for cholecystitis. Signed by: Mat Vargas DO on 09/07/2018 7:41 PM
--- NOTE | 2018-09-07 20:31 | Consultation ---
DATE OF CONSULTATION: REASON FOR CONSULTATION: Sepsis and UTI. HISTORY OF PRESENT ILLNESS: This patient is a very pleasant gentleman, 68-year-old, history of hypertension, history of benign prostatic hypertrophy. He used to smoke, but quit 30 years ago. The patient had a prostate biopsy Sunday late in the evening, , he was fine, started to have fever and chills today, comes into the hospital, he was not feeling well. The patient was admitted, started on antibiotic. He is already feeling better. The patient started on Rocephin 1 g a day. PAST MEDICAL HISTORY: Hypertension and hypercholesteremia. PAST SURGICAL HISTORY: Prostate biopsy. ALLERGIES: NKA. SOCIAL HISTORY: There is no smoking, drug abuse, or alcohol abuse. FAMILY HISTORY: Otherwise unremarkable. REVIEW OF SYSTEMS: HEENT: Negative. PULMONARY: Negative. CARDIAC: Negative. GENITOURINARY: Negative. GASTROINTESTINAL: Negative. SKIN: There is no other rash, otherwise he is doing well. MEDICATIONS: List reviewed. He is currently on: 1. Rocephin 1 g q.24. 2. Zocor. 3. Morphine p.r.n. LABORATORY DATA: Reviewed. His cultures are still pending. His white count on admission was 28.2, came down to 23. Sodium 136, potassium 4.3, creatinine of 1.2, bilirubin 1.40, AST 133, ALT 112. PHYSICAL EXAMINATION: GENERAL: He is currently alert, oriented, does not seem to be in acute distress. VITAL SIGNS: Stable. Currently afebrile. HEENT: He is not icteric. Normocephalic. NECK: Supple. No JVD. No lymphadenopathy. No thyromegaly. CHEST: Clear bilateral. HEART: S1, S2. No S3, S4, or murmur. ABDOMEN: Soft. Bowel sounds present. No tenderness. EXTREMITIES: No edema. SKIN: There is no rash. IMPRESSION: 1. Sepsis, concern about urinary tract infection. Pyelonephritis or bacteremia, status post biopsy. I agree with blood cultures and urine cultures. I agree with Rocephin since he is already feeling better. 2. Elevated liver enzyme. I agree with ultrasound. We will check hepatitis A, B, and C. 3. History of hypertension. 4. We will follow with you. MD RINKU Norman/GERA /[id number]
[2018-09-07] MEDS ORDERED: PRIMIDONE 50 MG TAB PO PRN (21:00)
[2018-09-07] MEDS ORDERED: SIMVASTATIN 20 MG TAB PO SCH (21:00)
[2018-09-07] MEDS ORDERED: PRIMIDONE 50 MG TAB PO SCH (21:00)
[2018-09-08 00:29] VITALS: BP 122/65
[2018-09-08 06:26] VITALS: BP 134/82
[2018-09-08 06:41] LABS: BASOPHILS # (AUTO) 0.1 (0.0-0.1); BASOPHILS % 0.3 % (0.0-1.0); EOSINOPHILS # (AUTO) 0.2 (0.0-0.4); EOSINOPHILS % 1.2 % (0.0-6.0); HEMATOCRIT 44.5 % (38.2-49.6); HEMOGLOBIN 14.6 g/dL (14.0-18.0); LYMPHOCYTES # (AUTO) 1.5 (1.0-3.2); LYMPHOCYTES % 8.2 % (18.0-39.1); MEAN CORPUSCULAR HEMOGLOBIN 29.3 pg (28-32); MEAN CORPUSCULAR HGB CONC 32.8 g/dL (31-35); MEAN CORPUSCULAR VOLUME 89.4 fL (81-99); MONOCYTES # (AUTO) 1.7 (0.2-0.8); NEUTROPHILS # (AUTO) 15.1 (2.1-6.9); NEUTROPHILS % 80.7 % (38.7-80.0); PLATELET COUNT 200 x10e3/uL (140-360); RED BLOOD COUNT 4.98 x10e6/uL (4.3-5.7); RED CELL DISTRIBUTION WIDTH 12.6 % (11.7-14.4)
[2018-09-08 06:56] LABS: ANION GAP 13.8 mmol/L (8-16); BLOOD UREA NITROGEN 11 mg/dL (7-26); BUN/CREATININE RATIO 11 (6-25); CALCIUM 9.4 mg/dL (8.4-10.2); CARBON DIOXIDE 20 mmol/L (22-29); CHLORIDE 107 mmol/L (98-107); CREATININE, SERUM 0.97 mg/dL (0.72-1.25); EST GLOMERULAR FILTRATION RATE > 60 ML/MIN (60-); GLUCOSE 97 mg/dL (74-118); SODIUM 137 mmol/L (136-145)
[2018-09-08 06:57] LABS: POTASSIUM 3.8 mmol/L (3.5-5.1)
--- NOTE | 2018-09-08 07:00 | NUR ---
BEDSIDE SHIFT REPORT RECEIVED FROM THE ZYGLO INSPECTOR RN. PT DENIES NEEDS AT THIS TIME.
--- NOTE | 2018-09-08 07:12 | NUR ---
Shift report given to oncoming nurse regarding patient status.
[2018-09-08] MEDS: SODIUM CHLORIDE 0.9% 1000ML 1,000 ML IV SCH (07:56)
[2018-09-08 09:00] VITALS: BP 124/79
[2018-09-08] MEDS ORDERED: METOPROLOL SUCCINATE 25 MG TAB XL PO SCH ×2 (09:00→10:00)
[2018-09-08] MEDS ORDERED: [UNRECOGNIZED DRUG - OTHER] PO SCH (09:00)
[2018-09-08] MEDS: COENZYME Q10 100 MG PO SCH (09:00)
--- NOTE | 2018-09-08 09:45 | NUR ---
PER THE PT, HE TAKES METOPROLOL 12.5 MG INSTEAD OF 25 MG. INFORMED PHARMACY THE SAME.
--- NOTE | 2018-09-08 10:45 | NUR ---
OKAY TO DISCHARGE PT PER DR. ESPAÑA.
--- NOTE | 2018-09-08 11:00 | NUR ---
DR. LOPEZ AT BEDSIDE TO SEE THE PT. OKAY TO DISCHARGE PT AFTER ANTIBIOTIC ADMINISTRATION PER THE
[2018-09-08] MEDS: CEFTRIAXONE SOD 1 GM/NS 50 ML 50 ML IV SCH (11:30)
--- NOTE | 2018-09-08 11:30 | NUR ---
HILARIA TO ADMINISTER ABX EARLY PER DR. LOPEZ.
[2018-09-08] MEDS ORDERED: LEVAQUIN500 MG PO (11:52)
[2018-09-08 12:43] VITALS: BP 137/79
--- NOTE | 2018-09-08 12:45 | NUR ---
PT DISCHARGED HOME SAFELY WITH FAMILY. PT ESCORTED VIA WHEEL CHAIR TO THE FRONT ENTRANCE. TELE AND IV REMOVED. NO BLEEDING NOTED. TIP INTACT. GAUZE DRESSING APPLIED AND SECURED. PT DENIED FURTHER NEEDS.
--- NOTE | 2018-10-05 00:34 | Discharge Summary ---
CHIEF COMPLAINT: Fever of 101. FINAL DIAGNOSES: Acute prostatitis, status post evaluation of bladder mass; hypertension. DISPOSITION: Home. HOSPITAL COURSE: A 68-year-old male with known history of hypertension and hyperlipidemia, underwent cystoscopy and biopsy of bladder tumor a few days ago, i.e., 09/05/2018, brought to the ER the next day with pain complaints as well as fever of 101. No chills. No chest pains or nausea and vomiting. Worked up and evaluated in the emergency room. On his white blood cell count in the ER, he was showing evidence of leukocytosis and with further care and evaluation, the patient was admitted to facility for care regarding status post cystoscopy with fever, acute prostatitis, hypertension, bladder tumor, benign prostatic hypertrophy. He will be started on IV antibiotics. We will continue home medications, request a Urology follow. With admission, the patient was being reviewed by Infectious Disease regarding issues of sepsis and UTI per Dr. Tyler, and with his evaluation, his impression was sepsis, concern about UTI. Pyelonephritis with bacteremia, status post biopsy. Agree with cultures. Agree with the antibiotics. The patient is already showing response. Elevated liver enzymes. We will be checking hepatitis A, B, and C. With admission, the patient was on the Med-Surg floor, receiving a cardiac diet, was being reviewed. Urology by Dr. Smith, on IV fluids, given medications for pain. Lab study watched closely. He was also receiving antibiotics. His white cell count was showing improvement, response to the medication. The patient will be cleared for discharge. He will be discharged home. He will be taken off the IV antibiotics, continuing with p.o. antibiotics. He was able to be released on 09/08/2018 in good condition. IMAGING: Gallbladder ultrasound shows gallbladder wall thickness, measures upper limits of normal, likely because of gallbladder as part showing contracted. No gallstones identified. Low suspicion for cholecystitis. Pelvis CT shows a 2.3 cm mucosal nodular lesion along the posterior aspect of the urinary bladder, suspicious for bladder neoplasm. Moderate prostatomegaly. Underlying prostatitis is consideration. No abscess. Prostate heterogenicity may be due to hemorrhage related to recent biopsy. Sigmoid diverticulosis without diverticulitis. Cultures of urine negative and blood negative. LABORATORY STUDIES: Begins with a CBC showing initial white cell count 28,000, white cell count continued to decline, final study was 18,000. H and H remain normal. Urinalysis was showing a cloudy clarity, 1+ protein, 3+ occult blood, greater than 50 rbc's per high-power field, 25 to 50 wbc's per high-power field, moderate amount of bacteria. Chemistry panel reveals initial electrolytes to be stable. Glucose was stable. BUN and creatinine were stable. Initial liver enzymes showing a bilirubin 1.4, AST 133, ALT 112. Further chemistries continued to reveal stable electrolytes. Blood sugar was high as 225. Liver enzymes were declining. Final bilirubin 1.5, final AST 69, final ALT 95. Responded well as mentioned and was cleared for discharge for home. IVs were removed at the time of discharge. No equipments or supplies were necessary. No drain or Sosa was needed. Activity level as directed by me as well as by Urology. He will continue on current diet. The patient will be receiving levofloxacin 500 mg p.o. daily, metoprolol succinate 12.5 mg p.o. daily, primidone 100 mg p.o. at bedtime, Crestor 5 mg p.o. daily, CoQ10 100 mg p.o. daily, Juice Plus one tablet p.o. daily. If the patient develops any further difficulties or has any further questions, he will be contacting his PCP or Dr. Puentes. Dictated by CRYSTAL Miramontes MD VENESSA Garay/IMANL /[id number]
[2018-11-18] MEDS ORDERED: [UNRECOGNIZED DRUG - OTHER] PO (10:34)
[2018-11-18] MEDS ORDERED: ULTRA OMEGA PO (10:34)
[2018-11-18] MEDS ORDERED: CITRACAL PO (10:34)
== END 2018-09-08 13:12 | disposition home or self-care (01) | DRG 872 ==
LOC: ER 21:51 → ERHOLD 23:59 → UNDOADMIN 09-07 00:42 → ERHOLD 09-07 00:42 → MED/SURG2 09-07 01:18 → UNDODISIN 09-08 13:12
DX: A41.9 Sepsis, unspecified organism (principal); N41.0 Acute prostatitis; N10 Acute pyelonephritis; R50.82 Postprocedural fever; I10 Essential (primary) hypertension; D49.4 Neoplasm of unspecified behavior of bladder; Z87.891 Personal history of nicotine dependence; E78.00 Pure hypercholesterolemia, unspecified; R94.5 Abnormal results of liver function studies; Z88.0 Allergy status to penicillin; N40.0 Benign prostatic hyperplasia without lower urinary tract symptoms
CPT/HCPCS: 36415; 72193; 76705; 80048; 80053; 81001; 82948; 83605; 83735; 84100; 85025; 87040; 87086; 99284; J0696; J2270; J7030; Q9967

== ENCOUNTER → 2018-09-27 | Outpatient (CLI) | payer MEDICARE ==
[~2018-09-27] MED LIST changes: +CITRACAL PO; +CO Q-10100 MG PO; +METOPROLOL SUCC25 MG PO; +MYSOLINE50 MG PO; +ULTRA OMEGA PO; +[UNRECOGNIZED DRUG - OTHER] PO
--- NOTE | 2018-09-27 12:06 | Diagnostic Imaging Report ---
EXAMINATION: CHEST 2 VIEWS INDICATION: Prostate cancer COMPARISON: None FINDINGS: LINES/TUBES:None LUNGS:The lungs are well-inflated. No focal consolidation or pulmonary edema. No radiographically apparent pulmonary nodules. PLEURA:No pleural effusion or pneumothorax. MEDIASTINUM:The cardiomediastinal silhouette appears normal in size and shape. BONES/SOFT TISSUES:No acute osseous injury. ABDOMEN:No free air under the diaphragm. IMPRESSION: No focal pneumonia or pulmonary edema. No radiographically apparent pulmonary nodules. Note is made that plain radiograph is not sensitive for detection of small pulmonary nodules. If there is high suspicion for metastatic disease to the lungs are osseous structures, CT is recommended as it has superior sensitivity. Signed by: Xin Barboza MD on 09/27/2018 12:02 PM
--- NOTE | 2018-09-27 18:06 | Diagnostic Imaging Report ---
Bone Scan, delayed phase INDICATION: C61: Malignant neoplasm of prostate. Staging evaluation. COMPARISON: CT pelvis 09/07/2018 REPORT: Approximately 3 hours following intravenous administration of 27.5 mCi of Tc-99m MDP, delayed total body images in the anterior and posterior projections were obtained. Focal increased tracer activity is seen in L5/S1 on the left, corresponding to degenerative change seen on recent CT. Degenerative changes are also seen in the right shoulder, right sternoclavicular joint and left knee. Otherwise, distribution of tracer activity is unremarkable throughout the skeletal system. No abnormal accumulation of tracer is seen in the soft tissues or urinary tract. IMPRESSION: No scan evidence of metastatic bone disease. Signed by: Dr. Yanet Pérez M.D. on 09/27/2018 6:02 PM
== END ==
LOC: NM 10:19
PROVIDERS: ATTEND Urology
DX: C61 Malignant neoplasm of prostate (principal)
CPT/HCPCS: 71046; 78306; A9503

== ENCOUNTER 2018-11-20 05:00 | Inpatient (IN) | payer MEDICARE ==
[2018-11-18 11:38] LABS: BASOPHILS # (AUTO) 0.1 (0.0-0.1); BASOPHILS % 0.9 % (0.0-1.0); EOSINOPHILS # (AUTO) 0.2 (0.0-0.4); EOSINOPHILS % 2.9 % (0.0-6.0); HEMATOCRIT 49.9 % (38.2-49.6); HEMOGLOBIN 16.2 g/dL (14.0-18.0); LYMPHOCYTES # (AUTO) 1.8 (1.0-3.2); MEAN CORPUSCULAR HEMOGLOBIN 29.5 pg (28-32); MEAN CORPUSCULAR HGB CONC 32.5 g/dL (31-35); MEAN CORPUSCULAR VOLUME 90.9 fL (81-99); MONOCYTES # (AUTO) 0.7 (0.2-0.8); MONOCYTES % 9.3 % (4.4-11.3); NEUTROPHILS # (AUTO) 4.3 (2.1-6.9); NEUTROPHILS % 60.6 % (38.7-80.0); PLATELET COUNT 253 x10e3/uL (140-360); RED BLOOD COUNT 5.49 x10e6/uL (4.3-5.7); RED CELL DISTRIBUTION WIDTH 13.3 % (11.7-14.4)
[2018-11-18 12:19] LABS: ANION GAP 10.7 mmol/L (8-16); BLOOD UREA NITROGEN 16 mg/dL (7-26); BUN/CREATININE RATIO 15 (6-25); CALCIUM 10.1 mg/dL (8.4-10.2); CARBON DIOXIDE 28 mmol/L (22-29); CHLORIDE 106 mmol/L (98-107); CREATININE, SERUM 1.05 mg/dL (0.72-1.25); EST GLOMERULAR FILTRATION RATE > 60 ML/MIN (60-); GLUCOSE 94 mg/dL (74-118); POTASSIUM 4.7 mmol/L (3.5-5.1); SODIUM 140 mmol/L (136-145)
[~2018-11-20] VITALS: Ht 167.6 cm; Wt 77.6 kg
--- OUTSIDE RECORDS SUMMARY | 2018-11-20 05:13 | XMS REPORT | Continuity of Care Document ---
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 Phone [employer] Unavailable Unavailable Problems Problem Status Onset Date Classification Date Reported Comments Source N13.1 Active 05/30/2017 [facility] Diverticulitis of large intestine without perforation or abscess without bleeding 05/22/2017 08/22/2017 [facility] LOWER ABD PAIN Active 2017 [facility] 587 Active 09/10/2014 [facility] 333.1 - TREMOR NEC V70.0 - ROUTINE MEDIC Active 04/03/2014 [facility] ENLARGED KIDNEY Active 04/03/2014 [facility] Pure hypercholesterolemia, unspecified 08/22/2017 [facility] Anxiety disorder, unspecified 08/22/2017 [facility] Essential hypertension 08/22/2017 [facility] Tremor, unspecified 08/22/2017 [facility] Personal history of nicotine dependence 08/22/2017 [facility] Urinary tract infection Active Problem 09/08/2018 [facility] KIDNEY ANOMALY NEC Active [facility] RENAL SCLEROSIS NOS Active [facility] DVTRCLI OF INTEST, PART UNSP, W/O PERF O Active [facility] HYDRONEPHROSIS W URETERAL STRICTURE, NEC Active [facility] Medications Medication Details Route Status Patient Instructions Ordering Provider Order Date Source Levofloxacin (Levaquin) 500 Mg Tablet, 500 Mg Oral Daily Active 09/08/2018 [facility] Clonazepam 0.5 Mg Tablet, 0.5 Mg Oral Twice A Day Active 09/07/2018 [facility] Red Yeast Rice 600 Mg Capsule, Unknown Dose Oral Daily Active 09/07/2018 [facility] Metronidazole 500 MG Oral Tablet [Flagyl] 500 mg=1 tab, PO, Q8H, X 7 day, # 21 tab, 0 Refill(s), Pharmacy: [facility] [id number] No Longer Active 05/17/2017 [facility] Ciprofloxacin 500 MG Oral Tablet [Cipro] 500 mg=1 tab, PO, Q12H, X 7 day, # 14 tab, 0 Refill(s), Pharmacy: [facility] [id number] No Longer Active 05/17/2017 [facility] Metronidazole 500 MG Oral Tablet [Flagyl] 500 mg=1 tab, PO, Q8H, X 7 day, # 21 tab, 0 Refill(s), other Inactive 05/16/2017 [facility] Acetaminophen 300 MG / Codeine Phosphate 30 MG Oral Tablet [Tylenol with Codeine #3] 1 tab, PO, Q6H, PRN Pain, X 7 day, # 28 tab, 0 Refill(s) No Longer Active 05/16/2017 [facility] Ciprofloxacin 500 MG Oral Tablet [Cipro] 500 mg=1 tab, PO, Q12H, X 7 day, # 14 tab, 0 Refill(s), other Inactive 05/16/2017 [facility] Sodium Chloride 0.9% IV 1,000 mL 1,000 mL, Rate: 50 ml/hr, Infuse over: 20 hr, Route: IV, Dosing Weight 76.392 kg, Total Volume: 1,000, Start date: 05/15/17 11:54:00 CDT, Stop date: 06/14/17 11:53:00 CDT, 1.9, m2 No Longer Active 05/15/2017 [facility] 200 ML Ciprofloxacin 2 MG/ML Injection 400 mg, 200 mL, Route: IVPB, Drug form: INJ, [id number], Dosing Weight 77.545, kg, Start date: 05/15/17 1:00:00 CDT, Duration: 14 day, Stop date: 05/28/17 13:00:00 CDT, ABX Indication: Intra-abdominal InfectionNotes: Do not refrigerate Inactive 05/15/2017 [facility] Flagyl 500 mg, 100 mL, Route: IVPB, Drug form: INJ, Q8H, Dosing Weight 77.545, kg, Start date: 05/14/17 22:00:00 CDT, Duration: 30 day, Stop date: 06/13/17 14:00:00 CDT, ABX Indication: Intra-abdominal Infe ctionNotes: (Same as: Flagyl) Avoid alcohol. No Longer Active 05/15/2017 [facility] Zosyn 3.375 gm, Route: IVPB, Drug form: PDR/INJ, [id number], Dosing Weight 76.392, kg, CrCl >=20 ml/min infuse over 4 hours, Start date: 05/14/17 22:00:00 CDT, Duration: 14 day, Stop date: 05/28/17 14:00:00 CDT, diverticulitis, ABX Indication: Other (specify i... Inactive 05/15/2017 [facility] Crestor 5 mg, 0.5 tab, Route: PO, Drug form: TAB, Bedtime, Dosing Weight 76.392, kg, Start date: 05/14/17 21:00:00 CDT, Duration: 30 day, Stop date: 06/12/17 21:00:00 CDTNotes: (Same As: Crestor) No Longer Active 05/15/2017 [facility] Clonazepam 0.5 mg, 1 tab, Route: PO, Drug form: TAB, BID, Dosing Weight 76.392, kg, Start date: 05/14/17 21:00:00 CDT, Duration: 30 day, Stop date: 06/13/17 9:00:00 CDTNotes: (Same As: KlonoPIN) No Longer Active 05/15/2017 [facility] Atenolol 12.5 mg, 0.5 tab, Route: PO, Drug form: TAB, Daily, Dosing Weight 76.392, kg, Start date: 05/14/17 21:00:00 CDT, Duration: 30 day, Stop date: 06/13/17 9:00:00 CDTNotes: (Same As:Tenormin) No Longer Active 05/15/2017 [facility] Streptococcus pneumoniae serotype 1 capsular antigen diphtheria [id number] protein conjugate vaccine / Streptococcus pneumoniae serotype 14 capsular antigen diphtheria [id number] protein conjugate vaccine / Streptococcus pneumoniae serotype 18C capsular antigen d 0.5 mL, Route: IM, Drug Form: INJ, ONCALL, Start date: 05/14/17 19:00:00 CDT, Duration: 30 day, Stop date: 06/13/17 18:59:00 CDTNotes: Shake well prior to use (Same as: Prevnar 13) No Longer Active 05/15/2017 [facility] Atenolol 12.5 mg, PO, Daily, 0 Refill(s) Active 2017 [facility] Rosuvastatin calcium 5 MG Oral Tablet [Crestor] 5 mg=1 tab, PO, Bedtime, # 30 tab, 0 Refill(s) Active 2017 [facility] clonazePAM 0.5 mg oral tablet 0.5 mg=1 tab, PO, BID, # 30 tab, 0 Refill(s) Active 2017 [facility] Probiotic Formula oral capsule 1 cap, PO, Daily, 0 Refill(s) Active 2017 [facility] Albuterol 0.833 MG/ML / Ipratropium Sweet 0.167 MG/ML Inhalant Solution [DuoNeb] 3 ml, Route: NEB, Drug Form: SOLN, Dosing Weight 77.545, kg, PRN, PRN Respiratory Protocol, Start date: 05/14/17 15:30:00 CDT, Duration: 30 day, Stop date: 06/13/17 15:29:00 CDTNotes: (Same as: Duoneb) No Longer Active 2017 [facility] Hydralazine 10 mg, 0.5 mL, Route: IVP, Drug form: INJ, Q6H, Dosing Weight 77.545, kg, PRN Hypertension, SBP>160, Start date: 05/14/17 15:30:00 CDT, Duration: 30 day, Stop date: 06/13/17 15:29:00 CDTNotes: (Same as: Apresoline) Push over 5 minutes No Longer Active 2017 [facility] Trazodone Hydrochloride 50 MG Oral Tablet 50 mg, 1 tab, Route: PO, Drug form: TAB, Bedtime, Dosing Weight 77.545, kg, PRN Insomnia, Start date: 05/14/17 15:30:00 CDT, Duration: 30 day, Stop date: 06/13/17 15:29:00 CDTNotes: (Same As: Desyrel) No Longer Active 2017 [facility] Acetaminophen 650 mg, 2 tab, Route: PO, Drug form: TAB, Q4H, Dosing Weight 77.545, kg, PRN For Temp > 100.4 F, Start date: 05/14/17 15:30:00 CDT, Duration: 30 day, Stop date: 06/13/17 15:29:00 CDTNotes: Do not exceed 4 gm/day. (Same as: Tylenol) No Longer Active 2017 [facility] Diphenhydramine 25 mg, 1 tab, Route: PO, Drug form: TAB, Q6H, Dosing Weight 77.545, kg, PRN Itching, Start date: 05/14/17 15:30:00 CDT, Duration: 30 day, Stop date: 06/13/17 15:29:00 CDT No Longer Active 2017 [facility] Tessalon Perles 100 mg, 1 cap, Route: PO, Drug form: CAP, Q8H, Dosing Weight 77.545, kg, PRN Cough, Start date: 05/14/17 15:30:00 CDT, Duration: 30 day, Stop date: 06/13/17 15:29:00 CDTNotes: (Same As: Gigi Ama es) "Do Not Crush" No Longer Active 2017 [facility] Ondansetron 4 mg, 2 mL, Route: IVP, Drug form: INJ, Q8H, Dosing Weight 77.545, kg, PRN Nausea & Vomiting, Start date: 05/14/17 15:30:00 CDT, Duration: 30 day, Stop date: 06/13/17 15:29:00 CDTNotes: (Same as: Michael) MEDICATION WASTE Product Size: 4 mg Product Wasted: ___ mg No Longer Active 2017 [facility] Simethicone 80 mg, 1 tab, Route: PO, Drug form: CHEWTAB, Q6H, Dosing Weight 77.545, kg, PRN Gas, Start date: 05/14/17 15:30:00 CDT, Duration: 2 doses or times, Stop date: Limited # of timesNotes: (Same as: Cata on) No Longer Active 2017 [facility] Aluminum Hydroxide 40 MG/ML / Magnesium Hydroxide 40 MG/ML / Simethicone 4 MG/ML Oral Suspension 30 mL, Route: PO, Drug Form: SUSP, Dosing Weight 77.545, kg, Q4H, PRN Indigestion, Start date: 05/14/17 15:30:00 CDT, Duration: 30 day, Stop date: 06/13/17 15:29:00 CDTNotes: (aluminum hydroxide-magnesium hyd- simethicone [phone]/5ml RICK) (Same as: Maalox Plus Extra Strength) No Longer Active 2017 [facility] Milk of Magnesia 30 mL, Route: PO, Drug Form: SUSP, Dosing Weight 77.545, kg, Q3H, PRN Constipation, Start date: 05/14/17 15:30:00 CDT, Duration: 2 doses or times, Stop date: Limited # of timesNotes: (Same as: Milk o f Magnesia, MOM) No Longer Active 2017 [facility] Bisacodyl 10 mg, 1 supp, Route: SD, Drug form: SUPP, Daily, Dosing Weight 77.545, kg, PRN Constipation, Start date: 05/14/17 15:30:00 CDT, Duration: 30 day, Stop date: 06/13/17 15:29:00 CDTNotes: (Same As: Dulcolax, Bisco-Lax) No Longer Active 2017 [facility] Saline Flush 0.9% 10 ml, Route: IVP, Drug Form: INJ, Dosing Weight 77.545, kg, PRN, PRN Line Flush, Start date: 05/14/17 15:30:00 CDT, Duration: 30 day, Stop date: 06/13/17 15:29:00 CDTNotes: (Same as: BD Posiflush) No Longer Active 2017 [facility] Sodium Chloride 0.9% IV 1,000 mL 1,000 mL, Rate: 100 ml/hr, Infuse over: 10 hr, Route: IV, Dosing Weight 77.545 kg, Total Volume: 1,000, Start date: 05/14/17 15:30:00 CDT, Duration: 30 day, Stop date: 06/13/17 15:29:00 CDT, 1.92, m2 No Longer Active 2017 [facility] Morphine 6 mg, 3 mL, Route: PO, Drug form: SOLN, Q4H, Dosing Weight 77.545, kg, PRN Pain Score 7-10, Start date: 05/14/17 15:27:00 CDT, Duration: 30 day, Stop date: 06/13/17 15:26:00 CDTNotes: (Same as:MORPhine Sulfate) No Longer Active 2017 [facility] Acetaminophen 325 MG / Hydrocodone Bitartrate 5 MG Oral Tablet [[place] 5/325] 1 tab, Route: PO, Drug Form: TAB, Dosing Weight 77.545, kg, Q6H, PRN Pain Score 1-3, Start date: 05/14/17 15:27:00 CDT, Duration: 30 day, Stop date: 06/13/17 15:26:00 CDTNotes: (Same as: [place] 325/5) Do not exceed 4gm/day of acetaminophen. No Longer Active 2017 [facility] Fentanyl 75 microgram, 1.5 mL, Route: IVP, Drug form: INJ, ONCE, Dosing Weight 77.545, kg, Priority: STAT, Start date: 05/14/17 13:43:00 CDT, Stop date: 05/14/17 13:43:00 CDTNotes: (Same as: Sublimaze) Preservative free. Inactive 2017 [facility] Metronidazole 500 mg, 100 mL, Route: IVPB, Drug form: INJ, ONCE, Dosing Weight 77.545, kg, Priority: STAT, Start date: 05/14/17 13:24:00 CDT, Stop date: 05/14/17 13:24:00 CDT, ABX Indication: Other (specify in Com ments)Notes: (Same as: Flagyl) Avoid alcohol. Inactive 2017 [facility] Cipro 400 mg, 200 mL, Route: IVPB, Drug form: INJ, ONCE, Dosing Weight 77.545, kg, Priority: STAT, Start date: 05/14/17 13:24:00 CDT, Stop date: 05/14/17 13:24:00 CDT, ABX Indication: Other (specify in Com ments)Notes: Do not refrigerate Inactive 2017 [facility] Omnipaque 300 injectable solution 100 mL, Route: IVP, Drug Form: SOLN, Dosing Weight 77.545, kg, ONCE, GFR > 45 mL/min, STAT, Start date: 05/14/17 11:49:00 CDT, Stop date: 05/14/17 11:49:00 CDTNotes: (Same as:Omnipaque 300). WASTE: F/P - Black; E - Municipal Trash Bin Inactive 2017 [facility] (Bolus) IV 1,000 mL, 1000 ml/hr, Infuse Over: 1 hr, Route: IV, 1,000, Drug form: INJ, ONCE, Priority: STAT, Dosing Weight 77.545 kg, Start date: 05/14/17 10:17:00 CDT, Stop date: 05/14/17 10:17:00 CDT Inactive 2017 [facility] Docusate Sodium (Colace) 100 Mg Cap, 100 Mg Oral Twice A Day Active 12/01/2014 [facility] Juice Plus , Oral Twice A Day Active 12/01/2014 [facility] Red Yeast Rice , Oral Twice A Day Active 12/01/2014 [facility] Rosuvastatin Calcium (Crestor) 10 Mg Tab, 5 Mg Oral Daily Active 12/01/2014 [facility] Acetaminophen With Codeine (Tylenol With Codeine #3 Tablet) 1 Each Tablet, 300 Mg Oral Every 6 Hours as needed for Abdominal Pain Active 08/20/2014 [facility] Levofloxacin (Levaquin) 500 Mg Tablet, 500 Mg Oral Daily Active 08/20/2014 [facility] Tramadol/Acetaminophen (Tramadol-Acetaminophn 37.5-325) 1 Ea Tab, 1 Tab Oral Q6-4HRS as needed for Pain Active 08/20/2014 [facility] Juice Plus Daily Active [facility] Levofloxacin (Levaquin) 500 Mg Tablet Daily Active [facility] Metoprolol Succinate 25 Mg Tab.er.24h Daily Active [facility] Primidone (Mysoline) 50 Mg Tablet Bedtime as needed for Anxiety Active [facility] Rosuvastatin Calcium (Crestor) 5 Mg Tablet Daily Active THERAPEUTICALLY SUBSTITUTED WITH SIMVASTATIN 20MG [facility] Ubidecarenone (Co Q-10) 100 Mg Capsule Daily Active [facility] Allergies, Adverse Reactions, Alerts Substance Category Reaction Severity Reaction type Status Date Reported Comments Source Penicillin DIZZY, FAINT Mild Allergy to Substance Active 06/19/2014 [facility] PLATSIC TAPE BLISTERS Intermediate Allergy to Substance Active 12/04/2014 [facility] penicillin<sup>1</sup> Assertion Drug allergy Active Pt tolerated zosyn on admission 05/15/17 [facility] Immunizations No Data Provided for This Section Results Order Name Results Value Reference Range Date Interpretation Comments Source Blood leukocytes automated count (number/volume) 18.67 4.8 - 10.8 09/08/2018 [facility] Blood erythrocytes automated count (number/volume) 4.98 4.3 - 5.7 09/08/2018 [facility] Blood hemoglobin measurement (moles/volume) 14.6 14.0 - 18.0 09/08/2018 [facility] Automated blood hematocrit (volume fraction) 44.5 38.2 - 49.6 09/08/2018 [facility] Automated erythrocyte mean corpuscular volume 89.4 81 - 99 09/08/2018 [facility] Automated erythrocyte mean corpuscular hemoglobin (mass per erythrocyte) 29.3 28 - 32 09/08/2018 [facility] Automated erythrocyte mean corpuscular hemoglobin concentration measurement (mass/volume) 32.8 31 - 35 09/08/2018 [facility] RDW BldCo-Rto 12.6 11.7 - 14.4 09/08/2018 [facility] Automated blood platelet count (count/volume) 200 140 - 360 09/08/2018 [facility] Automated blood segmented neutrophil count as percentage of total leukocytes 80.7 38.7 - 80.0 09/08/2018 [facility] Automated blood lymphocyte count as percentage ot total leukocytes 8.2 18.0 - 39.1 09/08/2018 [facility] Automated blood monocyte count as percentage of total leukocytes 9.0 4.4 - 11.3 09/08/2018 [facility] Automated blood eosinophil count as percentage of total leukocytes 1.2 0.0 - 6.0 09/08/2018 [facility] Automated blood basophil count as percentage of total leukocytes 0.3 0.0 - 1.0 09/08/2018 [facility] IM GRANULOCYTES % 0.6 0.0 - 1.0 09/08/2018 [facility] Automated blood neutrophil count 15.1 2.1 - 6.9 09/08/2018 [facility] Blood lymphocytes count (number/volume) 1.5 1.0 - 3.2 09/08/2018 [facility] Blood monocytes automated count (number/volume) 1.7 0.2 - 0.8 09/08/2018 [facility] Automated blood eosinophil count 0.2 0.0 - 0.4 09/08/2018 [facility] Automated blood basophil count (count/volume) 0.1 0.0 - 0.1 09/08/2018 [facility] Absolute Immature Granulocyte (auto 0.12 0 - 0.1 09/08/2018 [facility] Serum or plasma sodium measurement (moles/volume) 137 136 - 145 09/08/2018 [facility] Serum or plasma potassium measurement (moles/volume) 3.8 3.5 - 5.1 09/08/2018 [facility] Serum or plasma chloride measurement (moles/volume) 107 98 - 107 09/08/2018 [facility] Serum or plasma carbon dioxide, total measurement (moles/volume) 20 22 - 29 09/08/2018 [facility] Serum or plasma anion gap 13.8 8 - 16 09/08/2018 [facility] Serum or plasma urea nitrogen measurement (mass/volume) 11 7 - 26 09/08/2018 [facility] Serum or plasma creatinine measurement (mass/volume) 0.97 0.72 - 1.25 09/08/2018 [facility] Serum or plasma urea nitrogen/creatinine mass ratio 11 6 - 25 09/08/2018 [facility] Estimated glomerular filtration rate (GFR) determination > 60 60 09/08/2018 [facility] Glucose measurement 97 74 - 118 09/08/2018 [facility] Serum or plasma calcium measurement (mass/volume) 9.4 8.4 - 10.2 09/08/2018 [facility] Capillary blood glucose measurement by glucometer (mass/volume) 77 70 - 120 09/07/2018 [facility] Phosphorus measurement 1.7 2.3 - 4.7 09/07/2018 [facility] Serum or plasma magnesium measurement (mass/volume) 1.9 1.3 - 2.1 09/07/2018 [facility] Serum or plasma total bilirubin measurement (mass/volume) 1.5 0.2 - 1.2 09/07/2018 [facility] Aspartate Amino Transf (AST/SGOT) 69 5 - 34 09/07/2018 [facility] Serum or plasma alanine aminotransferase measurement (enzymatic activity/volume) 95 0 - 55 09/07/2018 [facility] Serum or plasma protein measurement (mass/volume) 6.5 6.5 - 8.1 09/07/2018 [facility] Serum or plasma albumin measurement (mass/volume) 3.1 3.5 - 5.0 09/07/2018 [facility] Plasma globulin measurement (mass/volume) 3.4 2.3 - 3.5 09/07/2018 [facility] Serum or plasma albumin/globulin mass ratio 0.9 0.8 - 2.0 09/07/2018 [facility] Serum or plasma alkaline phosphatase measurement (enzymatic activity/volume) 86 40 - 150 09/07/2018 [facility] Urine color determination YELLOW YELLOW 09/06/2018 [facility] Urine clarity SL CLOUDY CLEAR 09/06/2018 [facility] Specific gravity of Urine by Test strip 1.015 1.010 - 1.025 09/06/2018 [facility] Urine pH measurement by automated test strip 7 5 - 7 09/06/2018 [facility] Urine leukocyte esterase detection by automated test strip TRACE NEGATIVE 09/06/2018 [facility] Urine nitrite detection by automated test strip NEGATIVE NEGATIVE 09/06/2018 [facility] Urine protein detection by automated test strip 1+ NEGATIVE 09/06/2018 [facility] Urine glucose detection by automated test strip NEGATIVE NEGATIVE 09/06/2018 [facility] Urine ketones detection by automated test strip NEGATIVE NEGATIVE 09/06/2018 [facility] Urine urobilinogen measurement by test strip (mass/volume) 2 0.2 - 1 09/06/2018 [facility] Urine total bilirubin detection NEGATIVE NEGATIVE 09/06/2018 [facility] Urine erythrocytes detection 3+ NEGATIVE 09/06/2018 [facility] Automated urine sediment leukocyte count by microscopy (number/high power field) 21-50 0 - 5 09/06/2018 [facility] Erythrocytes detection in urine sediment by light microscopy >50 0 - 5 09/06/2018 [facility] Bacteria detection in urine sediment by light microscopy MODERATE NONE 09/06/2018 [facility] Epithelial cells detection in urine sediment by light microscopy FEW NONE 09/06/2018 [facility] Lactic Acid Level 11.1 4.5 - 19.8 09/06/2018 [facility] Blood culture NO GROWTH AFTER 24 HOURS 09/06/2018 [facility] CHEM PANEL A/G Ratio 0.6 0.7 - 1.6 05/15/2017 [facility] CHEM PANEL Globulin 4.2 2.7 - 4.2 05/15/2017 [facility] CHEM PANEL AGAP 12.0 10.0 - 20.0 05/15/2017 [facility] CHEM PANEL B/C Ratio 9 6 - 25 05/15/2017 [facility] CHEM PANEL Total Protein 6.7 6.4 - 8.4 05/15/2017 [facility] CHEM PANEL Calcium Lvl 8.8 8.5 - 10.5 05/15/2017 [facility] CHEM PANEL Alk Phos 123 39 - 136 05/15/2017 [facility] CHEM PANEL Bili Total 0.8 0.2 - 1.3 05/15/2017 [facility] CHEM PANEL eGFR 76 05/15/2017 Result [...] should be multiplied by the estimated BMI. [facility] CHEM PANEL CO2 24 24 - 32 05/15/2017 [facility] CHEM PANEL Chloride Lvl 107 95 - 109 05/15/2017 [facility] CHEM PANEL ALT 25 0 - 65 05/15/2017 [facility] CHEM PANEL AST 12 0 - 37 05/15/2017 [facility] CHEM PANEL Albumin Lvl 2.5 3.5 - 5.0 05/15/2017 [facility] CHEM PANEL Potassium Lvl 4.0 3.5 - 5.1 05/15/2017 [facility] CHEM PANEL Sodium Lvl 139 135 - 145 05/15/2017 [facility] CHEM PANEL Creatinine Lvl 1.00 0.50 - 1.40 05/15/2017 [facility] CHEM PANEL BUN 9 7 - 22 05/15/2017 [facility] CHEM PANEL Glucose Lvl 98 70 - 99 05/15/2017 [facility] HEMATOLOGY Basophils # 0.1 0.0 - 0.2 05/15/2017 [facility] HEMATOLOGY Monocytes 9.6 2.0 - 12.0 05/15/2017 [facility] HEMATOLOGY Lymphocytes 15.7 20.0 - 40.0 05/15/2017 [facility] HEMATOLOGY Segs 72.8 45.0 - 75.0 05/15/2017 [facility] HEMATOLOGY Basophils 0.5 0.0 - 1.0 05/15/2017 [facility] HEMATOLOGY Eosinophils 1.4 0.0 - 4.0 05/15/2017 [facility] Segs-Bands # 10.5 1.5 - 8.1 05/15/2017 [facility] Lymphocytes # 2.3 1.0 - 5.5 05/15/2017 [facility] Eosinophils # 0.2 0.0 - 0.5 05/15/2017 [facility] Monocytes # 1.4 0.0 - 0.8 05/15/2017 [facility] RDW 13.2 11.5 - 14.5 05/15/2017 [facility] Platelet 378 133 - 450 05/15/2017 [facility] MPV 7.3 7.4 - 10.4 05/15/2017 [facility] MCV 87.3 80.0 - 94.0 05/15/2017 [facility] MCH 29.4 27.0 - 31.0 05/15/2017 [facility] MCHC 33.7 32.0 - 36.0 05/15/2017 [facility] RBC 4.65 4.70 - 6.10 05/15/2017 [facility] WBC 14.4 3.7 - 10.4 05/15/2017 [facility] Hct 40.5 42.0 - 54.0 05/15/2017 [facility] Hgb 13.6 14.0 - 18.0 05/15/2017 [facility] CHEM PANEL eGFR 75 2017 Result [...] should be multiplied by the estimated BMI. [facility] CHEM PANEL Bili Total 0.7 0.2 - 1.3 2017 [facility] CHEM PANEL ALT 37 0 - 65 2017 [facility] CHEM PANEL Alk Phos 158 39 - 136 2017 [facility] CHEM PANEL AST 19 0 - 37 2017 [facility] CHEM PANEL Albumin Lvl 3.1 3.5 - 5.0 2017 [facility] CHEM PANEL Chloride Lvl 101 95 - 109 2017 [facility] CHEM PANEL Potassium Lvl 4.4 3.5 - 5.1 2017 [facility] CHEM PANEL Total Protein 8.0 6.4 - 8.4 2017 [facility] CHEM PANEL Calcium Lvl 9.2 8.5 - 10.5 2017 [facility] CHEM PANEL CO2 27 24 - 32 2017 [facility] CHEM PANEL BUN 13 7 - 22 2017 [facility] CHEM PANEL Creatinine Lvl 1.02 0.50 - 1.40 2017 [facility] CHEM PANEL Glucose Lvl 101 70 - 99 2017 [facility] CHEM PANEL Sodium Lvl 133 135 - 145 2017 [facility] CHEM PANEL Globulin 4.9 2.7 - 4.2 2017 [facility] CHEM PANEL A/G Ratio 0.6 0.7 - 1.6 2017 [facility] CHEM PANEL AGAP 9.4 10.0 - 20.0 2017 [facility] CHEM PANEL B/C Ratio 13 6 - 25 2017 [facility] CHEM PANEL Lipase Lvl 117 73 - 393 2017 [facility] HEMATOLOGY WBC 23.2 3.7 - 10.4 2017 [facility] HEMATOLOGY RBC 5.15 4.70 - 6.10 2017 [facility] HEMATOLOGY Hct 45.2 42.0 - 54.0 2017 [facility] HEMATOLOGY Hgb 15.2 14.0 - 18.0 2017 [facility] HEMATOLOGY RDW 13.0 11.5 - 14.5 2017 [facility] HEMATOLOGY MCH 29.5 27.0 - 31.0 2017 [facility] HEMATOLOGY MCHC 33.7 32.0 - 36.0 2017 [facility] HEMATOLOGY MPV 7.5 7.4 - 10.4 2017 [facility] HEMATOLOGY Platelet 426 133 - 450 2017 [facility] HEMATOLOGY MCV 87.8 80.0 - 94.0 2017 [facility] HEMATOLOGY Segs 84.3 45.0 - 75.0 2017 [facility] HEMATOLOGY Lymphocytes 6.9 20.0 - 40.0 2017 [facility] HEMATOLOGY Eosinophils 0.1 0.0 - 4.0 2017 [facility] HEMATOLOGY Segs-Bands # 19.5 1.5 - 8.1 2017 [facility] HEMATOLOGY Lymphocytes # 1.6 1.0 - 5.5 2017 [facility] HEMATOLOGY Basophils # 0.1 0.0 - 0.2 2017 [facility] HEMATOLOGY Basophils 0.3 0.0 - 1.0 2017 [facility] HEMATOLOGY Monocytes # 1.9 0.0 - 0.8 2017 [facility] HEMATOLOGY Monocytes 8.4 2.0 - 12.0 2017 [facility] URINE AND STOOL UA Sq Epi Occasional /LPF Few /LPF 2017 [facility] URINE AND STOOL UA WBC 2 0 - 5 2017 [facility] URINE AND STOOL UA Bili Negative *NA* (05/14/17 10:58 AM) Negative 2017 [facility] URINE AND STOOL UA Blood Negative (05/14/17 10:58 AM) Negative 2017 [facility] URINE AND STOOL UA Urobilinogen 2.0 0.1 - 1.0 2017 [facility] URINE AND STOOL UA Nitrite Negative (05/14/17 10:58 AM) Negative 2017 [facility] URINE AND STOOL UA Leuk Est Negative (05/14/17 10:58 AM) Negative 2017 [facility] URINE AND STOOL UA Spec Grav 1.028 <=1.030 2017 [facility] URINE AND STOOL UA Protein Negative mg/dL Negative mg/dL 2017 [facility] URINE AND STOOL UA Glucose Negative mg/dL Negative mg/dL 2017 [facility] URINE AND STOOL UA Ketones Negative mg/dL Negative mg/dL 2017 [facility] URINE AND STOOL UA pH 5.0 5.0 - 8.0 2017 [facility] URINE AND STOOL UA RBC 3 0 - 2 2017 [facility] URINE AND STOOL UA Mucus Few /LPF None Seen /LPF 2017 [facility] URINE AND STOOL UA Turbidity Clear (05/14/17 10:58 AM) Clear 2017 [facility] URINE AND STOOL UA Color Yellow *NA* (05/14/17 10:58 AM) Yellow 2017 [facility] Pathology Reports No Data Provided for [...] of 27.2 minutes versus 201.38 minutes). SL: [id number] 06/11/2017 [facility] ED Abdomen/Pelvis IV contrast only CT Clinical Indication: - Lower abdominal pain; Comparison: 04/07/2014 TECHNIQUE: Helical imaging was performed from the diaphragm through the symphysis with multiplanar reformations obtained. IV CONTRAST: 100 cc Omnipaque 300 ORAL CONTRAST: Not given CT Radiation Dose: ZHQ=344.95 mGy-cm FINDINGS: LOWER CHEST: The lung bases [...] hydronephrosis compared to April 07, 2014. SL: [id number] 2017 [facility] Renal Lasix Scan MD NAME: ARMINDA WEBSTER : 1950 SEX: M Ordering Physician: Joon Puentes Renal Lasix Scan NM : Sep [...] 62% on the right). SL: 24 09/14/2014 [facility] Brain wo contrast MRI Name: ARMINDA [...] unremarkable noncontrast MRI of the brain. 04/15/2014 [facility] Spine cervical wo contrast MRI Name: ARMINDA [...] associated neural foraminal stenosis SL: 24 04/15/2014 [facility] Abdomen/Pelvis w/wo IV contrast CT Name: ARMINDA WEBSTER : 1950 SEX: M Ordering Physician: Joon Puentes CT Abdomen/Pelvis w/wo contrast : Apr [...] Diverticulosis without evidence of diverticulitis. SL:54 04/07/2014 [facility] Renal scan w function study NM Name: ARMINDA WEBSTER : 1950 SEX: M Ordering Physician: Joon Puentes Renal scan with function study NM [...] Lasix in the left kidney.. SL:54 04/07/2014 [facility] Consultation Notes No Data Provided for This Section Discharge Summaries No Data Provided for This Section History and Physicals No Data Provided for This Section Vital Signs Vital Sign Value Date Comments Source Systolic (mm Hg) 142 05/16/2017 [facility] Diastolic (mm Hg) 83 05/16/2017 [facility] Temperature Oral (F) 98.0 F 05/16/2017 [facility] Heart Rate 71 05/16/2017 [facility] Respitory Rate 18 05/16/2017 [facility] Systolic (mm Hg) 136 05/16/2017 [facility] Diastolic (mm Hg) 81 05/16/2017 [facility] Heart Rate 59 05/16/2017 [facility] Temperature Oral (F) 98.3 F 05/16/2017 [facility] Systolic (mm Hg) 132 05/16/2017 [facility] Diastolic (mm Hg) 81 05/16/2017 [facility] Temperature Oral (F) 97.6 F 05/16/2017 [facility] Respitory Rate 18 05/16/2017 [facility] Heart Rate 67 05/16/2017 [facility] Respitory Rate 18 05/16/2017 [facility] Weight 76.392 2017 [facility] BMI Calculated 27.18 2017 [facility] Height 167.64 cm 2017 [facility] Height 167.64 cm 2017 [facility] BMI Calculated 27.59 2017 [facility] Weight 77.545 2017 [facility] Encounters Location Location Details Encounter Type Encounter Number Reason For Visit Attending Provider ADM Date DC Date Status Source [facility] Outpatient [id number] [facility] 04/07/2014 04/08/2014 [facility] Outpatient [id number] [facility] 09/14/2014 09/15/2014 [facility] Inpatient [id number] Hernán Corona 2017 05/17/2017 [facility] Outpatient [id number] Joon Puentes 06/11/2017 06/12/2017 [facility] [id number] JOON PUENTES MD 07/11/2018 [facility] Discharged Inpatient [id number] MALINA LOPEZ MD 09/07/2018 09/08/2018 [facility] Procedures Procedure Code Date Perfomer Comments Source Computed tomography of pelvis with contrast [id number] 09/07/2018 SEBASTIAN [facility] US Gallbladder [id number] 09/07/2018 SCHATTE [facility] Kidney operation [id number] [facility] Assessment and Plan Assessment and Plan Date Source Extracted from:Title: Clinical Document Author: Alberto Bell MD Date: 05/16/17 Progress Note - Daily [facility] Completed: Sunday, MAY 16, 2017, 13:41 by Alberto Bell MD RM: 436 - 1, NE [id number] ARMINDA WEBSTER 67y (: 1950) Attending: Hernán Corona DO Service: Internal Medicine Reason for Admission: LOWER ABD PAIN Working DRG: Esophagitis, gastroent and misc digest disorders w/o [facility] Code status: None Specified=FULL CODE Current diet: [...] suspension) 30 mL PO Q4H 05/14/17 acetaminophen-hydrocodone ([place] 5/325 oral tablet) 1 tab PO Q6H 05/14/17 acetaminophen 650 mg PO Q4H 05/14/17 albuterol-ipratropium (DuoNeb inhalation solution) 3 ml NEB PRN 05/14/17 benzonatate (Tessalon Perles) 100 mg PO Q8H 05/14/17 bisacodyl 10 mg SD Daily 05/14/17 diphenhydrAMINE 25 mg PO Q6H [...] anxiety meds -resume home statin . 05/17/2017 [facility] Plan of Care Plan of Care Date Source Discharge Date 09/08/18 1:12pm Disposition HOME, SELF-CARE Instructions/Education Provided Hypertension Urinary Tract Infection - Men Prescriptions See Medication Section Additional Instructions/Education PLEASE CONTINUE CARDIAC DIET. PLEASE FOLLOW UP WITH PCP IN 1-2 WEEKS. 09/08/2018 [facility] Social History Social History Date Source Social History Problem Response Recorded Date/Time Onset Date Status Hx Psychiatric Problems No 06/22/2014 7:15pm Not Applicable Not Applicable Hx Eating Disorder No 06/22/2014 7:15pm Not Applicable Not Applicable Hx Substance Use Disorder No 06/22/2014 7:15pm Not Applicable Not Applicable Hx Alcohol Use Y - SOCIALLY 06/22/2014 7:15pm Not Applicable Not Applicable Hx Substance Use Treatment No 06/22/2014 7:15pm Not Applicable Not Applicable Hx Physical Abuse No 06/22/2014 7:15pm Not Applicable Not Applicable Smoking Status Start Date Stop Date Never Smoker 09/08/2018 [facility] Social History TypeResponse Smoking Status Former smoker; Exposure to Tobacco Smoke None; Cigarette Smoking Last 365 Days No; Reg Smoking Cessation Counseling No entered on: 05/14/17 2017 [facility] Family History Value Date Source Relationship Condition Age at Onset Recorded Date/Time 31 Father FH: colon cancer Not Recorded 06/23/2014 6:16am 30 Mother FH: emphysema Not Recorded 06/23/2014 6:17am 17 Son FH: tremor Not Recorded 06/23/2014 6:18am 09/08/2018 [facility] Advance Directives Order Name Results Value Date Source Advance Directives Advance Directives Directive Response Recorded Date/Time Does the patient have an advance directive? No 09/07/18 1:52am If yes, is advance directive on file with [facility]? No 09/07/18 1:52am If not on file with [facility] will patient provide a copy? No 09/07/18 1:52am Do you have a Directive to Physician? No 09/06/18 9:51pm Do you have a Medical Power of Teletypist? No 09/06/18 9:51pm Do you have an out of hospital Do Not Resuscitate Order? No 09/06/18 9:51pm Do you have any special needs we should be aware of? No 09/06/18 9:51pm Do you have a support person here with you today? Yes 09/06/18 9:51pm Did patient receive Notice of Privacy Practices? Yes 09/06/18 9:51pm Did patient receive patient rights and responsibilities? Yes 09/06/18 9:51pm 09/08/2018 [facility] Functional Status No Data Provided for This Section
[2018-11-20] MEDS ORDERED: GENTAMICIN 120MG/NS 100ML 100 ML ONE (05:17)
[2018-11-20] MEDS ORDERED: B&O 60MG R/S 60 MG SUPP PR ONE (06:23)
[2018-11-20] MEDS ORDERED: IOPAMIDOL 610MG/1ML 300 MG/ML VIAL IV ONE (06:23)
[2018-11-20] MEDS ORDERED: GENTAMICIN SULFATE 200 MG in SODIUM CHLORIDE 0.9% 100 ML 100 ML IV ONE (06:45)
[2018-11-20] MEDS ORDERED: ONDANSETRON HCL INJ 2MG/ML 2ML 2 MG/ML VIAL IV PRN (08:45)
[2018-11-20] MEDS ORDERED: ACETAMINOPHEN/CODEINE 300MG - 30MG TAB PO PRN (08:45)
[2018-11-20] MEDS ORDERED: B&O 60MG R/S 60 MG SUPP PR PRN (08:45)
[2018-11-20] MEDS ORDERED: DIPHENHYDRAMINE HCL 25 MG CAP PO PRN (08:45)
--- OUTSIDE RECORDS SUMMARY | 2018-11-20 09:04 | XMS REPORT | Continuity of Care Document ---
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 Name Role Phone [employer] Unavailable Unavailable Problems Problem Status Onset Date Classification Date Reported Comments Source N13.1 Active 05/30/2017 [facility] Diverticulitis of large intestine without perforation or abscess without bleeding 05/22/2017 08/22/2017 [facility] LOWER ABD PAIN Active 2017 [facility] 587 Active 09/10/2014 [facility] 333.1 - TREMOR NEC V70.0 - ROUTINE MEDIC Active 04/03/2014 [facility] Outpatient [facility] ENLARGED KIDNEY Active 04/03/2014 [facility] Pure hypercholesterolemia, unspecified 08/22/2017 [facility] Anxiety disorder, unspecified 08/22/2017 [facility] Essential hypertension 08/22/2017 [facility] Tremor, unspecified 08/22/2017 [facility] Personal history of nicotine dependence 08/22/2017 [facility] Urinary tract infection Active Problem 09/08/2018 [facility] KIDNEY ANOMALY NEC Active [facility] RENAL SCLEROSIS NOS Active [facility] DVTRCLI OF INTEST, PART UNSP, W/O PERF O Active [facility] HYDRONEPHROSIS W URETERAL STRICTURE, NEC Active [facility] Medications Medication Details Route Status Patient Instructions Ordering Provider Order Date Source Levofloxacin (Levaquin) 500 Mg Tablet, 500 Mg Oral Daily Active 09/08/2018 [facility] Clonazepam 0.5 Mg Tablet, 0.5 Mg Oral Twice A Day Active 09/07/2018 [facility] Red Yeast Rice 600 Mg Capsule, Unknown Dose Oral Daily Active 09/07/2018 [facility] Metronidazole 500 MG Oral Tablet [Flagyl] 500 mg=1 tab, PO, Q8H, X 7 day, # 21 tab, 0 Refill(s), Pharmacy: [facility] [id number] No Longer Active 05/17/2017 [facility] Ciprofloxacin 500 MG Oral Tablet [Cipro] 500 mg=1 tab, PO, Q12H, X 7 day, # 14 tab, 0 Refill(s), Pharmacy: [facility] [id number] No Longer Active 05/17/2017 [facility] Metronidazole 500 MG Oral Tablet [Flagyl] 500 mg=1 tab, PO, Q8H, X 7 day, # 21 tab, 0 Refill(s), other Inactive 05/16/2017 [facility] Acetaminophen 300 MG / Codeine Phosphate 30 MG Oral Tablet [Tylenol with Codeine #3] 1 tab, PO, Q6H, PRN Pain, X 7 day, # 28 tab, 0 Refill(s) No Longer Active 05/16/2017 [facility] Ciprofloxacin 500 MG Oral Tablet [Cipro] 500 mg=1 tab, PO, Q12H, X 7 day, # 14 tab, 0 Refill(s), other Inactive 05/16/2017 [facility] Sodium Chloride 0.9% IV 1,000 mL 1,000 mL, Rate: 50 ml/hr, Infuse over: 20 hr, Route: IV, Dosing Weight 76.392 kg, Total Volume: 1,000, Start date: 05/15/17 11:54:00 CDT, Stop date: 06/14/17 11:53:00 CDT, 1.9, m2 No Longer Active 05/15/2017 [facility] 200 ML Ciprofloxacin 2 MG/ML Injection 400 mg, 200 mL, Route: IVPB, Drug form: INJ, [id number], Dosing Weight 77.545, kg, Start date: 05/15/17 1:00:00 CDT, Duration: 14 day, Stop date: 05/28/17 13:00:00 CDT, ABX Indication: Intra-abdominal InfectionNotes: Do not refrigerate Inactive 05/15/2017 [facility] Flagyl 500 mg, 100 mL, Route: IVPB, Drug form: INJ, Q8H, Dosing Weight 77.545, kg, Start date: 05/14/17 22:00:00 CDT, Duration: 30 day, Stop date: 06/13/17 14:00:00 CDT, ABX Indication: Intra-abdominal Infe ctionNotes: (Same as: Flagyl) Avoid alcohol. No Longer Active 05/15/2017 [facility] Zosyn 3.375 gm, Route: IVPB, Drug form: PDR/INJ, [id number], Dosing Weight 76.392, kg, CrCl >=20 ml/min infuse over 4 hours, Start date: 05/14/17 22:00:00 CDT, Duration: 14 day, Stop date: 05/28/17 14:00:00 CDT, diverticulitis, ABX Indication: Other (specify i... Inactive 05/15/2017 [facility] Crestor 5 mg, 0.5 tab, Route: PO, Drug form: TAB, Bedtime, Dosing Weight 76.392, kg, Start date: 05/14/17 21:00:00 CDT, Duration: 30 day, Stop date: 06/12/17 21:00:00 CDTNotes: (Same As: Crestor) No Longer Active 05/15/2017 [facility] Clonazepam 0.5 mg, 1 tab, Route: PO, Drug form: TAB, BID, Dosing Weight 76.392, kg, Start date: 05/14/17 21:00:00 CDT, Duration: 30 day, Stop date: 06/13/17 9:00:00 CDTNotes: (Same As: KlonoPIN) No Longer Active 05/15/2017 [facility] Atenolol 12.5 mg, 0.5 tab, Route: PO, Drug form: TAB, Daily, Dosing Weight 76.392, kg, Start date: 05/14/17 21:00:00 CDT, Duration: 30 day, Stop date: 06/13/17 9:00:00 CDTNotes: (Same As:Tenormin) No Longer Active 05/15/2017 [facility] Streptococcus pneumoniae serotype 1 capsular antigen diphtheria [id number] protein conjugate vaccine / Streptococcus pneumoniae serotype 14 capsular antigen diphtheria [id number] protein conjugate vaccine / Streptococcus pneumoniae serotype 18C capsular antigen d 0.5 mL, Route: IM, Drug Form: INJ, ONCALL, Start date: 05/14/17 19:00:00 CDT, Duration: 30 day, Stop date: 06/13/17 18:59:00 CDTNotes: Shake well prior to use (Same as: Prevnar 13) No Longer Active 05/15/2017 [facility] Atenolol 12.5 mg, PO, Daily, 0 Refill(s) Active 2017 [facility] Rosuvastatin calcium 5 MG Oral Tablet [Crestor] 5 mg=1 tab, PO, Bedtime, # 30 tab, 0 Refill(s) Active 2017 [facility] clonazePAM 0.5 mg oral tablet 0.5 mg=1 tab, PO, BID, # 30 tab, 0 Refill(s) Active 2017 [facility] Probiotic Formula oral capsule 1 cap, PO, Daily, 0 Refill(s) Active 2017 [facility] Albuterol 0.833 MG/ML / Ipratropium [place] 0.167 MG/ML Inhalant Solution [DuoNeb] 3 ml, Route: NEB, Drug Form: SOLN, Dosing Weight 77.545, kg, PRN, PRN Respiratory Protocol, Start date: 05/14/17 15:30:00 CDT, Duration: 30 day, Stop date: 06/13/17 15:29:00 CDTNotes: (Same as: Duoneb) No Longer Active 2017 [facility] Hydralazine 10 mg, 0.5 mL, Route: IVP, Drug form: INJ, Q6H, Dosing Weight 77.545, kg, PRN Hypertension, SBP>160, Start date: 05/14/17 15:30:00 CDT, Duration: 30 day, Stop date: 06/13/17 15:29:00 CDTNotes: (Same as: Apresoline) Push over 5 minutes No Longer Active 2017 [facility] Trazodone Hydrochloride 50 MG Oral Tablet 50 mg, 1 tab, Route: PO, Drug form: TAB, Bedtime, Dosing Weight 77.545, kg, PRN Insomnia, Start date: 05/14/17 15:30:00 CDT, Duration: 30 day, Stop date: 06/13/17 15:29:00 CDTNotes: (Same As: Desyrel) No Longer Active 2017 [facility] Acetaminophen 650 mg, 2 tab, Route: PO, Drug form: TAB, Q4H, Dosing Weight 77.545, kg, PRN For Temp > 100.4 F, Start date: 05/14/17 15:30:00 CDT, Duration: 30 day, Stop date: 06/13/17 15:29:00 CDTNotes: Do not exceed 4 gm/day. (Same as: Tylenol) No Longer Active 2017 [facility] Diphenhydramine 25 mg, 1 tab, Route: PO, Drug form: TAB, Q6H, Dosing Weight 77.545, kg, PRN Itching, Start date: 05/14/17 15:30:00 CDT, Duration: 30 day, Stop date: 06/13/17 15:29:00 CDT No Longer Active 2017 [facility] Tessalon Perles 100 mg, 1 cap, Route: PO, Drug form: CAP, Q8H, Dosing Weight 77.545, kg, PRN Cough, Start date: 05/14/17 15:30:00 CDT, Duration: 30 day, Stop date: 06/13/17 15:29:00 CDTNotes: (Same As: Gigi Ama es) "Do Not Crush" No Longer Active 2017 [facility] Ondansetron 4 mg, 2 mL, Route: IVP, Drug form: INJ, Q8H, Dosing Weight 77.545, kg, PRN Nausea & Vomiting, Start date: 05/14/17 15:30:00 CDT, Duration: 30 day, Stop date: 06/13/17 15:29:00 CDTNotes: (Same as: Michael) MEDICATION WASTE Product Size: 4 mg Product Wasted: ___ mg No Longer Active 2017 [facility] Simethicone 80 mg, 1 tab, Route: PO, Drug form: CHEWTAB, Q6H, Dosing Weight 77.545, kg, PRN Gas, Start date: 05/14/17 15:30:00 CDT, Duration: 2 doses or times, Stop date: Limited # of timesNotes: (Same as: Cata on) No Longer Active 2017 [facility] Aluminum Hydroxide 40 MG/ML / Magnesium Hydroxide 40 MG/ML / Simethicone 4 MG/ML Oral Suspension 30 mL, Route: PO, Drug Form: SUSP, Dosing Weight 77.545, kg, Q4H, PRN Indigestion, Start date: 05/14/17 15:30:00 CDT, Duration: 30 day, Stop date: 06/13/17 15:29:00 CDTNotes: (aluminum hydroxide-magnesium hyd- simethicone [phone]/5ml RICK) (Same as: Maalox Plus Extra Strength) No Longer Active 2017 [facility] Milk of Magnesia 30 mL, Route: PO, Drug Form: SUSP, Dosing Weight 77.545, kg, Q3H, PRN Constipation, Start date: 05/14/17 15:30:00 CDT, Duration: 2 doses or times, Stop date: Limited # of timesNotes: (Same as: Milk o f Magnesia, MOM) No Longer Active 2017 [facility] Bisacodyl 10 mg, 1 supp, Route: NE, Drug form: SUPP, Daily, Dosing Weight 77.545, kg, PRN Constipation, Start date: 05/14/17 15:30:00 CDT, Duration: 30 day, Stop date: 06/13/17 15:29:00 CDTNotes: (Same As: Dulcolax, Bisco-Lax) No Longer Active 2017 [facility] Saline Flush 0.9% 10 ml, Route: IVP, Drug Form: INJ, Dosing Weight 77.545, kg, PRN, PRN Line Flush, Start date: 05/14/17 15:30:00 CDT, Duration: 30 day, Stop date: 06/13/17 15:29:00 CDTNotes: (Same as: BD Posiflush) No Longer Active 2017 [facility] Sodium Chloride 0.9% IV 1,000 mL 1,000 mL, Rate: 100 ml/hr, Infuse over: 10 hr, Route: IV, Dosing Weight 77.545 kg, Total Volume: 1,000, Start date: 05/14/17 15:30:00 CDT, Duration: 30 day, Stop date: 06/13/17 15:29:00 CDT, 1.92, m2 No Longer Active 2017 [facility] Morphine 6 mg, 3 mL, Route: PO, Drug form: SOLN, Q4H, Dosing Weight 77.545, kg, PRN Pain Score 7-10, Start date: 05/14/17 15:27:00 CDT, Duration: 30 day, Stop date: 06/13/17 15:26:00 CDTNotes: (Same as:MORPhine Sulfate) No Longer Active 2017 [facility] Acetaminophen 325 MG / Hydrocodone Bitartrate 5 MG Oral Tablet [[place] 5/325] 1 tab, Route: PO, Drug Form: TAB, Dosing Weight 77.545, kg, Q6H, PRN Pain Score 1-3, Start date: 05/14/17 15:27:00 CDT, Duration: 30 day, Stop date: 06/13/17 15:26:00 CDTNotes: (Same as: [place] 325/5) Do not exceed 4gm/day of acetaminophen. No Longer Active 2017 [facility] Fentanyl 75 microgram, 1.5 mL, Route: IVP, Drug form: INJ, ONCE, Dosing Weight 77.545, kg, Priority: STAT, Start date: 05/14/17 13:43:00 CDT, Stop date: 05/14/17 13:43:00 CDTNotes: (Same as: Sublimaze) Preservative free. Inactive 2017 [facility] Metronidazole 500 mg, 100 mL, Route: IVPB, Drug form: INJ, ONCE, Dosing Weight 77.545, kg, Priority: STAT, Start date: 05/14/17 13:24:00 CDT, Stop date: 05/14/17 13:24:00 CDT, ABX Indication: Other (specify in Com ments)Notes: (Same as: Flagyl) Avoid alcohol. Inactive 2017 [facility] Cipro 400 mg, 200 mL, Route: IVPB, Drug form: INJ, ONCE, Dosing Weight 77.545, kg, Priority: STAT, Start date: 05/14/17 13:24:00 CDT, Stop date: 05/14/17 13:24:00 CDT, ABX Indication: Other (specify in Com ments)Notes: Do not refrigerate Inactive 2017 [facility] Omnipaque 300 injectable solution 100 mL, [...] Stop date: 05/14/17 10:17:00 CDT Inactive 2017 [facility] Docusate Sodium (Colace) 100 Mg Cap, 100 Mg Oral Twice A Day Active 12/01/2014 [facility] Juice Plus , Oral Twice A Day Active 12/01/2014 [facility] Red Yeast Rice , Oral Twice A Day Active 12/01/2014 [facility] Rosuvastatin Calcium (Crestor) 10 Mg Tab, 5 Mg Oral Daily Active 12/01/2014 [facility] Acetaminophen With Codeine (Tylenol With Codeine #3 Tablet) 1 Each Tablet, 300 Mg Oral Every 6 Hours as needed for Abdominal Pain Active 08/20/2014 [facility] Levofloxacin (Levaquin) 500 Mg Tablet, 500 Mg Oral Daily Active 08/20/2014 [facility] Tramadol/Acetaminophen (Tramadol-Acetaminophn 37.5-325) 1 Ea Tab, 1 Tab Oral Q6-4HRS as needed for Pain Active 08/20/2014 [facility] Juice Plus Daily Active [facility] Levofloxacin (Levaquin) 500 Mg Tablet Daily Active [facility] Metoprolol Succinate 25 Mg Tab.er.24h Daily Active [facility] Primidone (Mysoline) 50 Mg Tablet Bedtime as needed for Anxiety Active [facility] Rosuvastatin Calcium (Crestor) 5 Mg Tablet Daily Active THERAPEUTICALLY SUBSTITUTED WITH SIMVASTATIN 20MG [facility] Ubidecarenone (Co Q-10) 100 Mg Capsule Daily Active [facility] Allergies, Adverse Reactions, Alerts Substance Category Reaction Severity Reaction type Status Date Reported Comments Source Penicillin DIZZY, FAINT Mild Allergy to Substance Active 06/19/2014 [facility] PLATSIC TAPE BLISTERS Intermediate Allergy to Substance Active 12/04/2014 [facility] penicillin<sup>1</sup> Assertion Drug allergy Active Pt tolerated zosyn on admission 05/15/17 [facility] Immunizations No Data Provided for This Section Results Order Name Results Value Reference Range Date Interpretation Comments Source Blood leukocytes automated count (number/volume) 18.67 4.8 - 10.8 09/08/2018 [facility] Blood erythrocytes automated count (number/volume) 4.98 4.3 - 5.7 09/08/2018 [facility] Blood hemoglobin measurement (moles/volume) 14.6 14.0 - 18.0 09/08/2018 [facility] Automated blood hematocrit (volume fraction) 44.5 38.2 - 49.6 09/08/2018 [facility] Automated erythrocyte mean corpuscular volume 89.4 81 - 99 09/08/2018 [facility] Automated erythrocyte mean corpuscular hemoglobin (mass per erythrocyte) 29.3 28 - 32 09/08/2018 [facility] Automated erythrocyte mean corpuscular hemoglobin concentration measurement (mass/volume) 32.8 31 - 35 09/08/2018 [facility] RDW BldCo-Rto 12.6 11.7 - 14.4 09/08/2018 [facility] Automated blood platelet count (count/volume) 200 140 - 360 09/08/2018 [facility] Automated blood segmented neutrophil count as percentage of total leukocytes 80.7 38.7 - 80.0 09/08/2018 [facility] Automated blood lymphocyte count as percentage ot total leukocytes 8.2 18.0 - 39.1 09/08/2018 [facility] Automated blood monocyte count as percentage of total leukocytes 9.0 4.4 - 11.3 09/08/2018 [facility] Automated blood eosinophil count as percentage of total leukocytes 1.2 0.0 - 6.0 09/08/2018 [facility] Automated blood basophil count as percentage of total leukocytes 0.3 0.0 - 1.0 09/08/2018 [facility] IM GRANULOCYTES % 0.6 0.0 - 1.0 09/08/2018 [facility] Automated blood neutrophil count 15.1 2.1 - 6.9 09/08/2018 [facility] Blood lymphocytes count (number/volume) 1.5 1.0 - 3.2 09/08/2018 [facility] Blood monocytes automated count (number/volume) 1.7 0.2 - 0.8 09/08/2018 [facility] Automated blood eosinophil count 0.2 0.0 - 0.4 09/08/2018 [facility] Automated blood basophil count (count/volume) 0.1 0.0 - 0.1 09/08/2018 [facility] Absolute Immature Granulocyte (auto 0.12 0 - 0.1 09/08/2018 [facility] Serum or plasma sodium measurement (moles/volume) 137 136 - 145 09/08/2018 [facility] Serum or plasma potassium measurement (moles/volume) 3.8 3.5 - 5.1 09/08/2018 [facility] Serum or plasma chloride measurement (moles/volume) 107 98 - 107 09/08/2018 [facility] Serum or plasma carbon dioxide, total measurement (moles/volume) 20 22 - 29 09/08/2018 [facility] Serum or plasma anion gap 13.8 8 - 16 09/08/2018 [facility] Serum or plasma urea nitrogen measurement (mass/volume) 11 7 - 26 09/08/2018 [facility] Serum or plasma creatinine measurement (mass/volume) 0.97 0.72 - 1.25 09/08/2018 [facility] Serum or plasma urea nitrogen/creatinine mass ratio 11 6 - 25 09/08/2018 [facility] Estimated glomerular filtration rate (GFR) determination > 60 60 09/08/2018 [facility] Glucose measurement 97 74 - 118 09/08/2018 [facility] Serum or plasma calcium measurement (mass/volume) 9.4 8.4 - 10.2 09/08/2018 [facility] Capillary blood glucose measurement by glucometer (mass/volume) 77 70 - 120 09/07/2018 [facility] Phosphorus measurement 1.7 2.3 - 4.7 09/07/2018 [facility] Serum or plasma magnesium measurement (mass/volume) 1.9 1.3 - 2.1 09/07/2018 [facility] Serum or plasma total bilirubin measurement (mass/volume) 1.5 0.2 - 1.2 09/07/2018 [facility] Aspartate Amino Transf (AST/SGOT) 69 5 - 34 09/07/2018 [facility] Serum or plasma alanine aminotransferase measurement (enzymatic activity/volume) 95 0 - 55 09/07/2018 [facility] Serum or plasma protein measurement (mass/volume) 6.5 6.5 - 8.1 09/07/2018 [facility] Serum or plasma albumin measurement (mass/volume) 3.1 3.5 - 5.0 09/07/2018 [facility] Plasma globulin measurement (mass/volume) 3.4 2.3 - 3.5 09/07/2018 [facility] Serum or plasma albumin/globulin mass ratio 0.9 0.8 - 2.0 09/07/2018 [facility] Serum or plasma alkaline phosphatase measurement (enzymatic activity/volume) 86 40 - 150 09/07/2018 [facility] Urine color determination YELLOW YELLOW 09/06/2018 [facility] Urine clarity SL CLOUDY CLEAR 09/06/2018 [facility] Specific gravity of Urine by Test strip 1.015 1.010 - 1.025 09/06/2018 [facility] Urine pH measurement by automated test strip 7 5 - 7 09/06/2018 [facility] Urine leukocyte esterase detection by automated test strip TRACE NEGATIVE 09/06/2018 [facility] Urine nitrite detection by automated test strip NEGATIVE NEGATIVE 09/06/2018 [facility] Urine protein detection by automated test strip 1+ NEGATIVE 09/06/2018 [facility] Urine glucose detection by automated test strip NEGATIVE NEGATIVE 09/06/2018 [facility] Urine ketones detection by automated test strip NEGATIVE NEGATIVE 09/06/2018 [facility] Urine urobilinogen measurement by test strip (mass/volume) 2 0.2 - 1 09/06/2018 [facility] Urine total bilirubin detection NEGATIVE NEGATIVE 09/06/2018 [facility] Urine erythrocytes detection 3+ NEGATIVE 09/06/2018 [facility] Automated urine sediment leukocyte count by microscopy (number/high power field) 21-50 0 - 5 09/06/2018 [facility] Erythrocytes detection in urine sediment by light microscopy >50 0 - 5 09/06/2018 [facility] Bacteria detection in urine sediment by light microscopy MODERATE NONE 09/06/2018 [facility] Epithelial cells detection in urine sediment by light microscopy FEW NONE 09/06/2018 [facility] Lactic Acid Level 11.1 4.5 - 19.8 09/06/2018 [facility] Blood culture NO GROWTH AFTER 24 HOURS 09/06/2018 [facility] CHEM PANEL A/G Ratio 0.6 0.7 - 1.6 05/15/2017 [facility] CHEM PANEL Globulin 4.2 2.7 - 4.2 05/15/2017 [facility] CHEM PANEL AGAP 12.0 10.0 - 20.0 05/15/2017 [facility] CHEM PANEL B/C Ratio 9 6 - 25 05/15/2017 [facility] CHEM PANEL Total Protein 6.7 6.4 - 8.4 05/15/2017 [facility] CHEM PANEL Calcium Lvl 8.8 8.5 - 10.5 05/15/2017 [facility] CHEM PANEL Alk Phos 123 39 - 136 05/15/2017 [facility] CHEM PANEL Bili Total 0.8 0.2 - 1.3 05/15/2017 [facility] CHEM PANEL eGFR 76 05/15/2017 Result [...] should be multiplied by the estimated BMI. [facility] CHEM PANEL CO2 24 24 - 32 05/15/2017 [facility] CHEM PANEL Chloride Lvl 107 95 - 109 05/15/2017 [facility] CHEM PANEL ALT 25 0 - 65 05/15/2017 [facility] CHEM PANEL AST 12 0 - 37 05/15/2017 [facility] CHEM PANEL Albumin Lvl 2.5 3.5 - 5.0 05/15/2017 [facility] CHEM PANEL Potassium Lvl 4.0 3.5 - 5.1 05/15/2017 [facility] CHEM PANEL Sodium Lvl 139 135 - 145 05/15/2017 [facility] CHEM PANEL Creatinine Lvl 1.00 0.50 - 1.40 05/15/2017 [facility] CHEM PANEL BUN 9 7 - 22 05/15/2017 [facility] CHEM PANEL Glucose Lvl 98 70 - 99 05/15/2017 [facility] HEMATOLOGY Basophils # 0.1 0.0 - 0.2 05/15/2017 [facility] HEMATOLOGY Monocytes 9.6 2.0 - 12.0 05/15/2017 [facility] HEMATOLOGY Lymphocytes 15.7 20.0 - 40.0 05/15/2017 [facility] HEMATOLOGY Segs 72.8 45.0 - 75.0 05/15/2017 [facility] HEMATOLOGY Basophils 0.5 0.0 - 1.0 05/15/2017 [facility] HEMATOLOGY Eosinophils 1.4 0.0 - 4.0 05/15/2017 [facility] Segs-Bands # 10.5 1.5 - 8.1 05/15/2017 [facility] Lymphocytes # 2.3 1.0 - 5.5 05/15/2017 [facility] Eosinophils # 0.2 0.0 - 0.5 05/15/2017 [facility] Monocytes # 1.4 0.0 - 0.8 05/15/2017 [facility] RDW 13.2 11.5 - 14.5 05/15/2017 [facility] Platelet 378 133 - 450 05/15/2017 [facility] MPV 7.3 7.4 - 10.4 05/15/2017 [facility] MCV 87.3 80.0 - 94.0 05/15/2017 [facility] MCH 29.4 27.0 - 31.0 05/15/2017 [facility] MCHC 33.7 32.0 - 36.0 05/15/2017 [facility] RBC 4.65 4.70 - 6.10 05/15/2017 [facility] WBC 14.4 3.7 - 10.4 05/15/2017 [facility] Hct 40.5 42.0 - 54.0 05/15/2017 [facility] Hgb 13.6 14.0 - 18.0 05/15/2017 [facility] CHEM PANEL eGFR 75 2017 Result [...] should be multiplied by the estimated BMI. [facility] CHEM PANEL Bili Total 0.7 0.2 - 1.3 2017 [facility] CHEM PANEL ALT 37 0 - [...] Lipase Lvl 117 73 - 393 2017 [facility] HEMATOLOGY WBC 23.2 3.7 - 10.4 2017 [facility] HEMATOLOGY RBC 5.15 4.70 - 6.10 2017 [facility] HEMATOLOGY Hct 45.2 42.0 - 54.0 2017 [facility] HEMATOLOGY Hgb 15.2 14.0 - 18.0 2017 [facility] HEMATOLOGY RDW 13.0 11.5 - 14.5 2017 [facility] HEMATOLOGY MCH 29.5 27.0 - 31.0 2017 [facility] HEMATOLOGY MCHC 33.7 32.0 - 36.0 2017 [facility] HEMATOLOGY MPV 7.5 7.4 - 10.4 2017 [facility] HEMATOLOGY Platelet 426 133 - 450 2017 [facility] HEMATOLOGY MCV 87.8 80.0 - 94.0 2017 [facility] HEMATOLOGY Segs 84.3 45.0 - 75.0 2017 [facility] HEMATOLOGY Lymphocytes 6.9 20.0 - 40.0 2017 [facility] HEMATOLOGY Eosinophils 0.1 0.0 - 4.0 2017 [facility] HEMATOLOGY Segs-Bands # 19.5 1.5 - 8.1 2017 [facility] HEMATOLOGY Lymphocytes # 1.6 1.0 - 5.5 2017 [facility] HEMATOLOGY Basophils # 0.1 0.0 - 0.2 2017 [facility] HEMATOLOGY Basophils 0.3 0.0 - 1.0 2017 [facility] HEMATOLOGY Monocytes # 1.9 0.0 - 0.8 2017 [facility] HEMATOLOGY Monocytes 8.4 2.0 - 12.0 2017 [facility] URINE AND STOOL UA Sq Epi Occasional /LPF Few /LPF 2017 [facility] URINE AND STOOL UA WBC 2 0 - 5 2017 [facility] URINE AND STOOL UA Bili Negative *NA* (05/14/17 10:58 AM) Negative 2017 [facility] URINE AND STOOL UA Blood Negative (05/14/17 10:58 AM) Negative 2017 [facility] URINE AND STOOL UA Urobilinogen 2.0 0.1 - 1.0 2017 [facility] URINE AND STOOL UA Nitrite Negative (05/14/17 10:58 AM) Negative 2017 [facility] URINE AND STOOL UA Leuk Est Negative (05/14/17 10:58 AM) Negative 2017 [facility] URINE AND STOOL UA Spec Grav 1.028 <=1.030 2017 [facility] URINE AND STOOL UA Protein Negative mg/dL Negative mg/dL 2017 [facility] URINE AND STOOL UA Glucose Negative mg/dL Negative mg/dL 2017 [facility] URINE AND STOOL UA Ketones Negative mg/dL Negative mg/dL 2017 [facility] URINE AND STOOL UA pH 5.0 5.0 - 8.0 2017 [facility] URINE AND STOOL UA RBC 3 0 - 2 2017 [facility] URINE AND STOOL UA Mucus Few /LPF None Seen /LPF 2017 [facility] URINE AND STOOL UA Turbidity Clear (05/14/17 10:58 AM) Clear 2017 [facility] URINE AND STOOL UA Color Yellow *NA* (05/14/17 10:58 AM) Yellow 2017 [facility] Pathology Reports No Data Provided for [...] of 27.2 minutes versus 201.38 minutes). SL: [id number] 06/11/2017 [facility] ED Abdomen/Pelvis IV contrast only CT Clinical Indication: - Lower abdominal pain; Comparison: 04/07/2014 TECHNIQUE: Helical imaging was performed from the diaphragm through the symphysis with multiplanar reformations obtained. IV CONTRAST: 100 cc Omnipaque 300 ORAL CONTRAST: Not given CT Radiation Dose: VXG=255.95 mGy-cm FINDINGS: LOWER CHEST: The lung bases [...] hydronephrosis compared to April 07, 2014. SL: [id number] 2017 [facility] Renal Lasix Scan PR NAME: ARMINDA WEBSTER : 1950 SEX: M [...] 62% on the right). SL: 24 09/14/2014 [facility] Brain wo contrast MRI Name: ARMINDA [...] unremarkable noncontrast MRI of the brain. 04/15/2014 [facility] Spine cervical wo contrast [...] associated neural foraminal stenosis SL: 24 04/15/2014 [facility] Abdomen/Pelvis w/wo IV contrast [...] Diverticulosis without evidence of diverticulitis. SL:54 04/07/2014 [facility] Renal scan w function study NM [...] Lasix in the left kidney.. SL:54 04/07/2014 [facility] Consultation Notes No Data Provided for This Section Discharge Summaries No Data Provided for This Section History and Physicals No Data Provided for This Section Vital Signs Vital Sign Value Date Comments Source Systolic (mm Hg) 142 05/16/2017 [facility] Diastolic (mm Hg) 83 05/16/2017 [facility] Temperature Oral (F) 98.0 F 05/16/2017 [facility] Heart Rate 71 05/16/2017 [facility] Respitory Rate 18 05/16/2017 [facility] Systolic (mm Hg) 136 05/16/2017 [facility] Diastolic (mm Hg) 81 05/16/2017 [facility] Heart Rate 59 05/16/2017 [facility] Temperature Oral (F) 98.3 F 05/16/2017 [facility] Systolic (mm Hg) 132 05/16/2017 [facility] Diastolic (mm Hg) 81 05/16/2017 [facility] Temperature Oral (F) 97.6 F 05/16/2017 [facility] Respitory Rate 18 05/16/2017 [facility] Heart Rate 67 05/16/2017 [facility] Respitory Rate 18 05/16/2017 [facility] Weight 76.392 2017 [facility] BMI Calculated 27.18 2017 [facility] Height 167.64 cm 2017 [facility] Height 167.64 cm 2017 [facility] BMI Calculated 27.59 2017 [facility] Weight 77.545 2017 [facility] Encounters Location Location Details Encounter Type Encounter Number Reason For Visit Attending Provider ADM Date DC Date Status Source [facility] Outpatient [id number] [facility] 04/07/2014 04/08/2014 [facility] Outpatient [id number] [facility] 09/14/2014 09/15/2014 [facility] Inpatient [id number] Hernán Corona 2017 05/17/2017 [facility] Outpatient [id number] Joon Puentes 06/11/2017 06/12/2017 [facility] Registered Clinic [id number] JOON PUENTES MD 07/11/2018 [facility] Discharged Inpatient [id number] MALINA LOPEZ MD 09/07/2018 09/08/2018 [facility] Procedures Procedure Code Date Perfomer Comments Source Computed tomography of pelvis with contrast [id number] 09/07/2018 SEBASTIAN [facility] US Gallbladder [id number] 09/07/2018 SCHATTE [facility] Kidney operation [id number] [facility] Assessment and Plan Assessment and Plan Date Source Extracted from:Title: Clinical Document Author: Alberto Bell MD Date: 05/16/17 Progress Note - Daily [facility] Completed: Sunday, MAY 16, 2017, 13:41 by Alberto Bell MD RM: 436 - 1, NE LMS4 ARMINDA WEBSTER 67y (: 1950) Attending: Hernán Corona DO Service: Internal Medicine Reason for Admission: LOWER ABD PAIN Working DRG: Esophagitis, gastroent and misc digest disorders w/o [facility] Code status: None [...] suspension) 30 mL PO Q4H 05/14/17 acetaminophen-hydrocodone ([place] 5/325 oral tablet) 1 tab PO Q6H 05/14/17 acetaminophen 650 mg PO Q4H 05/14/17 albuterol-ipratropium (DuoNeb inhalation solution) 3 ml NEB PRN 05/14/17 benzonatate (Tessalon Perles) 100 mg PO Q8H 05/14/17 bisacodyl 10 mg NE Daily 05/14/17 diphenhydrAMINE 25 mg PO Q6H [...] anxiety meds -resume home statin . 05/17/2017 [facility] Plan of Care Plan of Care Date Source Discharge Date 09/08/18 1:12pm Disposition HOME, SELF-CARE Instructions/Education Provided Hypertension Urinary Tract Infection - Men Prescriptions See Medication Section Additional Instructions/Education PLEASE CONTINUE CARDIAC DIET. PLEASE FOLLOW UP WITH PCP IN 1-2 WEEKS. 09/08/2018 [facility] Social History Social History Date Source Social [...] Start Date Stop Date Never Smoker 09/08/2018 [facility] Social History TypeResponse Smoking Status Former smoker; Exposure to Tobacco Smoke None; Cigarette Smoking Last 365 Days No; Reg Smoking Cessation Counseling No entered on: 05/14/17 2017 [facility] Family History Value Date Source Relationship Condition Age at Onset Recorded Date/Time 31 Father FH: colon cancer Not Recorded 06/23/2014 6:16am 30 Mother FH: emphysema Not Recorded 06/23/2014 6:17am 17 Son FH: tremor Not Recorded 06/23/2014 6:18am 09/08/2018 [facility] Advance Directives Order Name Results Value Date Source Advance Directives Advance Directives Directive Response Recorded Date/Time Does the patient have an advance directive? No 09/07/18 1:52am If yes, is advance directive on file with [facility]? No 09/07/18 1:52am If not on file with [facility] will patient provide a copy? No 09/07/18 1:52am Do you have a Directive to Physician? No 09/06/18 9:51pm Do you have a Medical Power of Manager Ems? No 09/06/18 9:51pm Do you have an [...] rights and responsibilities? Yes 09/06/18 9:51pm 09/08/2018 [facility] Functional Status No Data Provided for This Section
--- NOTE | 2018-11-20 09:09 | NUR ---
RECEIVED REPORT FROM POLO IN PACU AWAITING FOR PT TO ARRIVE TO FLOOR
[2018-11-20 09:30] VITALS: BP 139/75
--- NOTE | 2018-11-20 09:30 | NUR ---
PT RESTING IN BED AA0X3. PT IS IN NO S.S OF DISTRESS PT IS ON TRACTION WITH BURROWS CATH ON CBI URINE IS STRAW COLOR, NO CLOTS NOTED PT HAS A RIGHT HAND 20 WITH NS AT 100 CC HR SITE IS CLEAN AND DRY FAMILY IS AT BEDSIDE WILL CONTINUE TO MONITOR PT CLOSELY, SITE [id number], BED WHEELS LOCKED CALL LIGHT IS WITHIN EASY REACH, INSTRUCTED TO CALL FOR ASSISTANCE IF NEEDED
[2018-11-20 09:39] VITALS: BP 139/75
[2018-11-20] MEDS ORDERED: LEVOFLOXACIN 500MG/D5W 100ML 100 ML IV SCH (10:00)
[2018-11-20 10:11] LABS: BASOPHILS % 0.3 % (0.0-1.0); EOSINOPHILS # (AUTO) 0.1 (0.0-0.4); EOSINOPHILS % 0.5 % (0.0-6.0); HEMATOCRIT 46.7 % (38.2-49.6); LYMPHOCYTES # (AUTO) 1.2 (1.0-3.2); LYMPHOCYTES % 7.7 % (18.0-39.1); MEAN CORPUSCULAR HEMOGLOBIN 29.4 pg (28-32); MEAN CORPUSCULAR HGB CONC 32.1 g/dL (31-35); MEAN CORPUSCULAR VOLUME 91.4 fL (81-99); MONOCYTES # (AUTO) 0.3 (0.2-0.8); NEUTROPHILS % 88.6 % (38.7-80.0); PLATELET COUNT 214 x10e3/uL (140-360); RED BLOOD COUNT 5.11 x10e6/uL (4.3-5.7)
[2018-11-20] MEDS: D5.45%NS/KCL 20MEQ 1,000 ML IV SCH ×3 (10:24→20:24)
[2018-11-20] MEDS: PHENAZOPYRIDINE HCL 100 MG TAB PO SCH ×3 (10:24→16:59)
[2018-11-20] MEDS: DOCUSATE SODIUM 100 MG CAP PO SCH ×2 (10:24→16:58)
[2018-11-20 10:29] LABS: ANION GAP 9.9 mmol/L (8-16); BLOOD UREA NITROGEN 11 mg/dL (7-26); BUN/CREATININE RATIO 11 (6-25); CARBON DIOXIDE 24 mmol/L (22-29); CHLORIDE 108 mmol/L (98-107); CREATININE, SERUM 1.02 mg/dL (0.72-1.25); EST GLOMERULAR FILTRATION RATE > 60 ML/MIN (60-); GLUCOSE 115 mg/dL (74-118); POTASSIUM 4.9 mmol/L (3.5-5.1); SODIUM 137 mmol/L (136-145)
[2018-11-20 11:38] VITALS: BP 170/91
[2018-11-20] MEDS ORDERED: TRAMADOL HCL 50 MG TAB PO PRN (12:45)
[2018-11-20] MEDS ORDERED: PRIMIDONE 50 MG TAB PO PRN (12:45)
[2018-11-20] MEDS ORDERED: GLYCOPYRROLATE INJ 1MG/ 5 ML SYR ONE (14:04)
[2018-11-20] MEDS ORDERED: FUROSEMIDE INJ 10 MG/ML 4 ML VIAL ONE (14:04)
[2018-11-20] MEDS ORDERED: ATROPINE SULFATE 1 MG/ML VIAL ONE (14:04)
[2018-11-20] MEDS ORDERED: ONDANSETRON HCL INJ 2MG/ML 2ML 2 MG/ML VIAL ONE (14:04)
[2018-11-20] MEDS ORDERED: SEVOFLURANE INHAL SOLN 250 ML PEN BTL ONE (14:04)
[2018-11-20] MEDS ORDERED: DEXAMETHASONE SOD PHOS INJ 4 MG/ML VIAL ONE (14:04)
[2018-11-20] MEDS ORDERED: PROPOFOL IV EMULSION 10 MG/ML 20 ML VIAL ONE (14:04)
[2018-11-20] MEDS ORDERED: LIDOCAINE HCL 2% LOCAL INJ 5 ML SDV VIAL INJ ONE (14:04)
[2018-11-20] MEDS ORDERED: MIDAZOLAM HCL 2 MG/2 ML VIAL ONE (14:39)
[2018-11-20] MEDS ORDERED: FENTANYL CITRATE/PF 100MCG/2 ML INJ ONE (14:39)
[2018-11-20 15:43] VITALS: BP 131/71
[2018-11-20] MEDS: LISINOPRIL 2.5 MG TAB PO SCH (16:59)
[2018-11-20 19:51] VITALS: BP 158/73
[2018-11-20] MEDS: METOPROLOL SUCCINATE 25 MG TAB XL PO SCH (20:16)
[2018-11-20] MEDS: SIMVASTATIN 20 MG TAB PO SCH (20:23)
[2018-11-20 21:29] VITALS: BP 153/73
[2018-11-21] VITALS (9 sets, daily range): BP systolic 110–139; BP diastolic 64–78
[2018-11-21] MEDS: D5.45%NS/KCL 20MEQ 1,000 ML IV SCH ×5 (00:45→22:10)
[2018-11-21 05:34] LABS: BASOPHILS % 0.2 % (0.0-1.0); EOSINOPHILS % 0.2 % (0.0-6.0); HEMATOCRIT 46.1 % (38.2-49.6); HEMOGLOBIN 14.8 g/dL (14.0-18.0); MEAN CORPUSCULAR HEMOGLOBIN 28.9 pg (28-32); MEAN CORPUSCULAR HGB CONC 32.1 g/dL (31-35); MONOCYTES # (AUTO) 1.7 (0.2-0.8); MONOCYTES % 8.5 % (4.4-11.3); NEUTROPHILS % 80.5 % (38.7-80.0); PLATELET COUNT 228 x10e3/uL (140-360); RED BLOOD COUNT 5.12 x10e6/uL (4.3-5.7); RED CELL DISTRIBUTION WIDTH 13.2 % (11.7-14.4)
[2018-11-21 05:54] LABS: ANION GAP 10.7 mmol/L (8-16); BLOOD UREA NITROGEN 10 mg/dL (7-26); BUN/CREATININE RATIO 10 (6-25); CALCIUM 8.5 mg/dL (8.4-10.2); CARBON DIOXIDE 23 mmol/L (22-29); CHLORIDE 108 mmol/L (98-107); CREATININE, SERUM 1.04 mg/dL (0.72-1.25); EST GLOMERULAR FILTRATION RATE > 60 ML/MIN (60-); GLUCOSE 137 mg/dL (74-118); POTASSIUM 4.7 mmol/L (3.5-5.1); SODIUM 137 mmol/L (136-145)
[2018-11-21 07:01] LABS: LYMPHOCYTES % (MANUAL) 11 % (19-48); MONOCYTES % (MANUAL) 9 % (3.4-9.0); NEUTROPHILS % (MANUAL) 80 % (40-74)
[2018-11-21 07:02] LABS: PLATELET ESTIMATE ADEQUATE; RBC MORPHOLOGY COMMENT NORMAL
[2018-11-21] MEDS: CEFTRIAXONE SOD 1 GM/NS 50 ML 50 ML IV SCH (08:38)
[2018-11-21] MEDS: LISINOPRIL 2.5 MG TAB PO SCH ×2 (08:39→17:05)
[2018-11-21] MEDS: DOCUSATE SODIUM 100 MG CAP PO SCH ×2 (08:39→17:05)
[2018-11-21] MEDS: PHENAZOPYRIDINE HCL 100 MG TAB PO SCH ×3 (08:39→17:05)
[2018-11-21] MEDS ORDERED: ONDANSETRON HCL 4 MG ORAL DISINTEGRATING TAB PO PRN (13:15)
--- NOTE | 2018-11-21 20:20 | NUR ---
Assessment done.no resp.distress.no pain voiced.on cont.bladder irrigation.orange colored urine draining.uses ics.bed locked and in lowest position.phone and call light within reach.instructed to call fo assistance as needed.stable condition.
[2018-11-21] MEDS: SIMVASTATIN 20 MG TAB PO SCH (20:32)
[2018-11-21] MEDS: METOPROLOL SUCCINATE 25 MG TAB XL PO SCH (20:33)
[2018-11-22 04:00] VITALS: BP 126/68
[2018-11-22 06:03] LABS: BASOPHILS # (AUTO) 0.1 (0.0-0.1); BASOPHILS % 0.4 % (0.0-1.0); EOSINOPHILS # (AUTO) 0.3 (0.0-0.4); EOSINOPHILS % 1.8 % (0.0-6.0); HEMATOCRIT 48.3 % (38.2-49.6); HEMOGLOBIN 15.7 g/dL (14.0-18.0); LYMPHOCYTES # (AUTO) 2.3 (1.0-3.2); MEAN CORPUSCULAR HEMOGLOBIN 29.4 pg (28-32); MEAN CORPUSCULAR HGB CONC 32.5 g/dL (31-35); MEAN CORPUSCULAR VOLUME 90.4 fL (81-99); MONOCYTES # (AUTO) 1.6 (0.2-0.8); MONOCYTES % 9.9 % (4.4-11.3); NEUTROPHILS # (AUTO) 11.2 (2.1-6.9); NEUTROPHILS % 71.9 % (38.7-80.0); PLATELET COUNT 220 x10e3/uL (140-360); RED BLOOD COUNT 5.34 x10e6/uL (4.3-5.7); RED CELL DISTRIBUTION WIDTH 13.4 % (11.7-14.4)
[2018-11-22 06:38] LABS: ANION GAP 8.2 mmol/L (8-16); BLOOD UREA NITROGEN 13 mg/dL (7-26); BUN/CREATININE RATIO 12 (6-25); CALCIUM 8.8 mg/dL (8.4-10.2); CARBON DIOXIDE 26 mmol/L (22-29); CHLORIDE 104 mmol/L (98-107); CREATININE, SERUM 1.08 mg/dL (0.72-1.25); EST GLOMERULAR FILTRATION RATE > 60 ML/MIN (60-); GLUCOSE 100 mg/dL (74-118); POTASSIUM 4.2 mmol/L (3.5-5.1); SODIUM 134 mmol/L (136-145)
--- NOTE | 2018-11-22 06:41 | NUR ---
Bedside shift report given to the oncoming Rn.stable condition.
[2018-11-22] MEDS: D5.45%NS/KCL 20MEQ 1,000 ML IV SCH (07:16)
[2018-11-22 07:51] LABS: PLATELET ESTIMATE ADEQUATE; RBC MORPHOLOGY COMMENT NORMAL
[2018-11-22] MEDS: DOCUSATE SODIUM 100 MG CAP PO SCH (08:12)
[2018-11-22] MEDS: CEFTRIAXONE SOD 1 GM/NS 50 ML 50 ML IV SCH (08:12)
[2018-11-22 08:13] VITALS: BP 147/76
[2018-11-22] MEDS: LISINOPRIL 2.5 MG TAB PO SCH (08:13)
[2018-11-22] MEDS: PHENAZOPYRIDINE HCL 100 MG TAB PO SCH ×2 (08:13→13:03)
[2018-11-22 09:08] VITALS: BP 147/76
--- NOTE | 2018-11-22 09:45 | NUR ---
Discontinued Sosa catheter at this time. Tip intact. 55 cc pulled from balloon. Drained 1000mL of clear yellow urine. Patient tolerated well. Educated patient on serial urines. Patient verbalized understanding. Dr. Lucinda Stewart seeing the patient at this time as well. Ok to DC once urine is clear.
--- NOTE | 2018-11-22 11:44 | NUR ---
x2 serial urines noted. Clear red urine.
--- NOTE | 2018-11-22 12:02 | NUR ---
IMM EXPLAINED TO PT, SIGNED BY PT AND PLACED IN CHART COPY TO PT IN CARE TRANSITIONS FOLDER
[2018-11-22 13:25] VITALS: BP 148/83
[2018-11-22] MEDS ORDERED: TYLENOL WITH C1 EACH PO (14:12)
[2018-11-22] MEDS ORDERED: DITROPAN XL5 MG PO (14:13)
[2018-11-22] MEDS ORDERED: CEFUROXIME250 MG PO (14:24)
--- NOTE | 2018-12-31 02:09 | Operative Report ---
DATE OF PROCEDURE: 11/20/2018 SURGEON: William Puentes MD PREOPERATIVE DIAGNOSES: 1. Urinary tract infections. 2. Obstructive benign prostatic hyperplasia. POSTOPERATIVE DIAGNOSES: 1. Urinary tract infections. 2. Obstructive benign prostatic hyperplasia. 3. Urethral stricture disease. OPERAIONS PERFORMED: 1. Cystourethroscopy with calibration and dilation of urethral stricture (separate procedure performed for the diagnosis of stricture). 2. Cystourethroscopy with bilateral ureteral catheterization and retrograde ureteropyelography (separate procedure performed for the urinary tract infections). 3. Interpretation of retrograde ureteropyelography. 4. Supervision of fluoroscopy, no radiologist present. 5. Cystourethroscopy with transurethral resection of the prostate utilizing the plasma button electrode. ANESTHESIA: General. COMPLICATIONS: None. CLINICAL SUMMARY: Cory Bermudez is a 68-year-old man with a complex urological history. The patient underwent left pyeloplasty. He then developed a proximal left ureteral stricture despite a wide-open ureteropelvic junction. The patient has been managed with no intervention since the initial evaluation and stenting. His renal function has been stable by renal scanning and he seems to have adequate drainage and also he is rarely symptomatic. The patient was diagnosed with prostate cancer and is brought to the operating room to definitively manage his BPH in preparation for radiotherapy as definitive management. We plan to wait six months between this surgery and the radiotherapy. He is aware of the risks of bleeding, infection, injury to adjacent structures, need for additional procedures and elected to proceed. OPERATIVE PROCEDURE IN DETAIL: Informed consent was verified. Cory Bermudez was properly identified, taken to the operating room, and placed on the cystoscopy table in supine position. Anesthesia was uneventfully begun. The patient was then carefully gently repositioned in dorsal lithotomy position with all pressure points well padded. His genitalia were prepared and draped in the usual sterile fashion. The cystoscope sheath with the visual obturator in place was atraumatically inserted into the patient's urethra, it was guided unremarkable to the distal urethra to the bulbar region, where there was a stricture calibrating it approximately a 14 and 16-Micronesian in size. It was gently dilated to the size of the sheath, which was 22.5-Micronesian in size, went through the prostate bed, which was significant for trilobar prostatic hypertrophy with a small median lobe with kissing lateral lobes. We entered the patient's bladder and drained it. Panendoscopy revealed heavy trabeculations with a paraureteral diverticulum on the right-hand side. There were no suspicious lesions. There were no tumors. There were no stones. An 8-Micronesian catheter was used to cannulate each ureter and retrograde ureteral pyelograms were performed. Interpretation of retrograde ureteropyelography contrast was instilled in retrograde fashion bilaterally. There was a right paraureteral diverticulum that was in the bladder, but not well appreciated on retrograde study. The right side was unremarkable. There were no tumors, no stones, no hydronephrosis. Left side exhibited chronic-appearing hydronephrosis with calyceal blunting. There appeared to be a stricture several centimeters distal to the ureteropelvic junction. Nevertheless, contrast could be seen draining across this system. There were no stones. There were no filling defects. The cystoscope was withdrawn. We progressively dilated the bulbar urethral stricture with Lavell sounds. We then easily were able to place the resectoscope sheath and proceeded with transurethral resection of the prostate. The plasma button electrode was utilized to vaporize the prostate from the bladder neck tube, but it never passed the verumontanum and down to the surgical capsule. Pinpoint electrocautery was utilized to achieve hemostasis. The resectoscope was withdrawn. A Sosa catheter was placed. It was placed in continuous irrigation and was manually irrigated to and fro to ensure it worked properly and the patient was uneventfully reversed from anesthesia and taken to the recovery room in stable condition. We will proceed with routine postoperative care and of course lifelong urological followup. William Puentes MD [place]/MODL /[id number] cc: Kostas Erickson DO
== END 2018-11-22 15:05 | disposition home or self-care (01) | DRG 713 ==
LOC: OR 05:00 → PACU V 08:49 → MED/SURG 09:37
PROC: 0T788ZZ Dilation of Bilateral Ureters, Via Natural or Artificial Opening Endoscopic (ICD-10-PCS; 2018-11-20)
PROC: 0T7D8ZZ Dilation of Urethra, Via Natural or Artificial Opening Endoscopic (ICD-10-PCS; 2018-11-20)
PROC: BT14ZZZ Fluoroscopy of Kidneys, Ureters and Bladder (ICD-10-PCS; principal; 2018-11-20 07:00)
PROC: 0VB08ZZ Excision of Prostate, Via Natural or Artificial Opening Endoscopic (ICD-10-PCS; 2018-11-20 07:00)
DX: N40.1 Benign prostatic hyperplasia with lower urinary tract symptoms (principal); N13.30 Unspecified hydronephrosis; N13.8 Other obstructive and reflux uropathy; N35.919 Unspecified urethral stricture, male, unspecified site; N41.9 Inflammatory disease of prostate, unspecified; E78.5 Hyperlipidemia, unspecified; C61 Malignant neoplasm of prostate
CPT/HCPCS: 36415; 74420; 80048; 83735; 85025; 93005; C1758; J0461; J0696; J1100; J1580; J1940; J1956; J2001; J2250; J2405; J3010

== ENCOUNTER 2019-05-08 13:35 | Emergency (ER) | payer MEDICARE ==
[~2019-05-08] VITALS: Ht 167.6 cm; Wt 77.6 kg
[~2019-05-08 13:35] MED LIST changes: +CEFUROXIME250 MG PO; +DITROPAN XL5 MG PO
[2019-05-08 14:04] LABS: BASOPHILS # (AUTO) 0.1 (0.0-0.1); BASOPHILS % 0.4 % (0.0-1.0); EOSINOPHILS # (AUTO) 0.2 (0.0-0.4); EOSINOPHILS % 1.3 % (0.0-6.0); HEMATOCRIT 45.1 % (38.2-49.6); HEMOGLOBIN 15.1 g/dL (14.0-18.0); LYMPHOCYTES # (AUTO) 2.3 (1.0-3.2); LYMPHOCYTES % 17.5 % (18.0-39.1); MEAN CORPUSCULAR HEMOGLOBIN 29.8 pg (28-32); MEAN CORPUSCULAR HGB CONC 33.5 g/dL (31-35); MONOCYTES # (AUTO) 0.9 (0.2-0.8); MONOCYTES % 6.6 % (4.4-11.3); NEUTROPHILS # (AUTO) 9.6 (2.1-6.9); NEUTROPHILS % 73.7 % (38.7-80.0); PLATELET COUNT 271 x10e3/uL (140-360); RED BLOOD COUNT 5.07 x10e6/uL (4.3-5.7); RED CELL DISTRIBUTION WIDTH 12.4 % (11.7-14.4)
[2019-05-08 14:22] LABS: AMYLASE 60 U/L (25-125); LIPASE 35 U/L (8-78)
[2019-05-08 14:25] LABS: ALANINE AMINOTRANSFERASE 20 IU/L (0-55); ALBUMIN 4.2 g/dL (3.5-5.0); ALBUMIN/GLOBULIN RATIO 1.1 (0.8-2.0); ALKALINE PHOSPHATASE 92 IU/L (40-150); ANION GAP 13.9 mmol/L (8-16); BLOOD UREA NITROGEN 15 mg/dL (7-26); BUN/CREATININE RATIO 14 (6-25); CALCIUM 10.5 mg/dL (8.4-10.2); CARBON DIOXIDE 28 mmol/L (22-29); CHLORIDE 102 mmol/L (98-107); CREATINE KINASE 32 IU/L (30-200); CREATININE, SERUM 1.07 mg/dL (0.72-1.25); EST GLOMERULAR FILTRATION RATE > 60 ML/MIN (60-); GLUCOSE 102 mg/dL (74-118); POTASSIUM 3.9 mmol/L (3.5-5.1); SODIUM 140 mmol/L (136-145)
[2019-05-08 14:32] LABS: BILIRUBIN,URINE NEGATIVE (NEGATIVE); CLARITY,URINE SL CLOUDY (CLEAR); COLOR,URINE YELLOW (YELLOW); KETONES,URINE TRACE (NEGATIVE); LEUKOCYTE ESTERASE ,URINE NEGATIVE (NEGATIVE); NITRITE,URINE NEGATIVE (NEGATIVE); PROTEIN,URINE DIPSTICK NEGATIVE (NEGATIVE); URINE UROBILINOGEN 0.2 mg/dL (0.2 - 1)
[2019-05-08 14:53] LABS: BACTERIA,URINE MODERATE /HPF; EPITHELIAL CELLS,URINE FEW /LPF
--- NOTE | 2019-05-08 16:01 | Diagnostic Imaging Report ---
EXAM: CT Abdomen and Pelvis WITH intravenous contrast INDICATION: Abdominal pain COMPARISON: CT Pelvis of 09/07/2018 TECHNIQUE: Abdomen and pelvis were scanned utilizing a multidetector helical scanner from the lung base to the pubic symphysis after administration of IV contrast. Coronal and sagittal reformations were obtained. Routine protocol was performed. Scan was performed during portal venous phase. IV CONTRAST: 100mL of Isovue 370 ORAL CONTRAST: Water RADIATION DOSE: Total DLP: 458 mGy*cm Dose modulation, iterative reconstruction, and/or weight based adjustment of the mA/kV was utilized to reduce the radiation dose to as low as reasonably achievable. FINDINGS: LOWER THORAX: Normal. HEPATOBILIARY: No focal hepatic lesions. No biliary ductal dilatation. The gallbladder appears unremarkable. SPLEEN: No splenomegaly. PANCREAS: No focal masses or ductal dilatation. ADRENALS: No adrenal nodules. KIDNEYS/URETERS: Status post left partial nephrectomy. Moderate left hydronephrosis. No calculi or solid mass lesions PELVIC ORGANS/BLADDER: Hypodensity in the prostate, possible related to prior TURP. PERITONEUM / RETROPERITONEUM: No free air or fluid. LYMPH NODES: No lymphadenopathy. VESSELS: Moderate atherosclerotic calcifications of the nonaneurysmal abdominal aorta and major branches. GI TRACT: Diverticulosis without CT evidence of diverticulitis. No abnormal bowel thickening. No bowel obstruction. Normal appendix. BONES AND SOFT TISSUES: No acute osseous injury. IMPRESSION: Status post left partial nephrectomy. Moderate left hydronephrosis. No calculi or solid mass lesions. Diverticulosis without CT evidence of diverticulitis. Signed by: Xin Barboza MD on 05/08/2019 3:58 PM
[2019-05-08] MEDS ORDERED: IOPAMIDOL 370 MG/ML 200 ML INFUS..BTL INJ ONE (17:35)
[2019-05-08] MEDS ORDERED: SODIUM CHLORIDE 0.9% 50ML 50 ML ONE (17:35)
== END 2019-05-08 16:48 | disposition home or self-care (01) ==
LOC: ER 16:48
DX: R10.33 Periumbilical pain (principal); R10.13 Epigastric pain; I10 Essential (primary) hypertension; E78.5 Hyperlipidemia, unspecified
CPT/HCPCS: 36415; 74177; 80053; 81001; 82150; 82550; 82553; 83690; 84484; 85025; 87086; 99284; Q9967